=== PATIENT | male | born 1945 | race Caucasian/White ===

== ENCOUNTER 2021-04-27 19:16 | Inpatient (IN) | payer MEDICARE, OTHER ==
[2021-04-27 21:04] LABS: Appearance,Urine Cloudy (Clear); Bacteria,Urine Occasional /hpf; Bilirubin,Urine Negative (Negative); Blood,Urine Trace (Negative); Color,Urine Yellow; Glucose,Urine (UA) Negative (Negative); Hyaline Casts,Urine 3 /lpf (0-2); Ketones,Urine Trace (Negative); Leukocyte Esterase,Urine Large (Negative); Nitrite,Urine Negative (Negative); Protein,Urine Trace (Negative); RBC,Urine 10 /hpf (0-5); Specific Gravity,Urine 1.015 (1.001-1.035); Urobilinogen,Urine <2.0 mg/dL (<2.0); WBC,Urine 175 /hpf (0-5)
[2021-04-27] MEDS ORDERED: ONDANSETRON 4 MG/2 ML VIAL IVP STA (21:31)
[2021-04-27] MEDS ORDERED: HYDROmorphone 1 MG/ML 1 ML SYRINGE IVP STA (21:31)
[2021-04-27] MEDS ORDERED: HYDROmorphone 1 MG/ML 1 ML SYRINGE IVP PRN (22:29)
[2021-04-27] MEDS ORDERED: ONDANSETRON 4 MG/2 ML VIAL IVP PRN (22:29)
[2021-04-27] MEDS ORDERED: NALOXONE 0.4 MG/ML 1 ML VIAL IV PRN (22:29)
--- NOTE | 2021-04-27 22:29 | ED ---
Abdominal Pain HPI - General Chief Complaint: Abdominal Pain Stated Complaint: abd pain, obstruction Time Seen by Provider: 04/27/21 20:38 Source: patient, EMS Mode of arrival: EMS Limitations: physical limitation - History of Present Illness Initial Comments: 76 year-old male patient presents to the emergency department as a transfer from [facility] for GI and urology evaluation. Patient presented to their hospital on 04/13/21 for leg weakness and was admitted with cellulitis. While there he developed significant abdominal pain and distention. He was found to have rectal fecal impaction and had several enemas and was put on stool softeners. He started having bowel movements but symptoms seemed to be worsening. They repeated CT scan x2, he had evidence for dilated small and large bowel with possible ileus. He was also found to have calcification an atrophy of the left kidney. NG tube was inserted without relief. They transferred him here for further evaluation. Patient reports bloating and distention. Generalized abdominal pain. Denies nausea or vomiting. Denies fever or chills. - Related Data Allergies Allergy/AdvReac Type Severity Reaction Status Date / Time enalaprilat [From Vasotec] Allergy Cough Verified 04/27/21 20:46 Review of Systems ROS Statement: Those systems with pertinent positive or pertinent negative responses have been documented in the HPI. ROS Other: All systems not noted in ROS Statement are negative. Past Medical History Past Medical History: Atrial Fibrillation, Heart Failure, Diabetes Mellitus, GERD/Reflux, Hypertension, Vascular Disorder History of Any Multi-Drug Resistant Organisms: None Reported Past Surgical History: Back Surgery, Cholecystectomy, Pacemaker Past Psychological History: No Psychological Hx Reported Smoking Status: Never smoker Past Alcohol Use History: None Reported Past Drug Use History: None Reported General Exam Limitations: physical limitation General appearance: alert, in no apparent distress, other (This is a well- developed, well-nourished adult male patient.) ENT exam: Present: normal exam, normal oropharynx, mucous membranes moist Respiratory exam: Present: normal lung sounds bilaterally. Absent: respiratory distress, wheezes, rales, rhonchi, stridor Cardiovascular Exam: Present: regular rate, normal rhythm, normal heart sounds. Absent: systolic murmur, diastolic murmur, rubs, gallop, clicks GI/Abdominal exam: Present: distended, normal bowel sounds. Absent: tenderness, guarding, rebound, rigid Neurological exam: Present: alert, oriented X3, CN II-XII intact Psychiatric exam: Present: normal affect, normal mood Skin exam: Present: warm, dry, intact, normal color. Absent: rash Course Vital Signs 04/27/21 19:34 Temperature 98.6 F Pulse Rate 108 H Respiratory 18 Rate Blood Pressure 159/94 O2 Sat by Pulse 97 Oximetry Medical Decision Making - Medical Decision Making 76-year-old male patient presented to the emergency department today for GI and urology consult. He is being treated at [facility] for cellulitis and lower extremity weakness when he developed abdominal distention was found to have fecal rectal impaction. Had several enemas and some bowel movements but no relief of the distention. He currently has an NG tube in place. He had 3 CT scans of the abdomen at the previous hospital, the most recent one shows distended colon and small bowel. Evidence for atrophic left kidney with calcification. I did discuss the case with Dr. Mcania is willing to consult for the ileus. Urology will be consulted. Patient does generally have chronic indwelling almanza catheter, this was removed at the previous facility. Patient endorsed inability to urinate, almanza was placed with output of 700ml UA shows infection. We will start antibiotics. Patient is agreeable with this plan. My attending is Dr. Pereira. - Lab Data Lab Results 04/27/21 Range/Units 20:49 Urine Color Yellow Urine Appearance Cloudy (Clear) Urine pH 6.0 (5.0-8.0) Ur Specific [place] 1.015 (1.001-1.035) Urine Protein Trace H (Negative) Urine Glucose (UA) Negative (Negative) Urine Ketones Trace H (Negative) Urine Blood Trace H (Negative) Urine Nitrite Negative (Negative) Urine Bilirubin Negative (Negative) Urine Urobilinogen <2.0 (<2.0) mg/dL Ur Leukocyte Esterase Large H (Negative) Urine RBC 10 H (0-5) /hpf Urine WBC 175 H (0-5) /hpf Urine WBC Clumps Few H (None) /hpf Urine Bacteria Occasional H (None) /hpf Hyaline Casts 3 H (0-2) /lpf Disposition Clinical Impression: Ileus, Atrophy of left kidney, UTI (urinary tract infection) Disposition: ADMITTED IP TO THIS HOSP Condition: Serious Referrals: Bud Barry MD [Primary Care Provider] - 1-2 days Decision to Admit Reason: Admit from EC Decision Date: 04/27/21 Decision Time: 22:28
[2021-04-27] MEDS ORDERED: SODIUM CHLORIDE 0.9% 1,000 ML IV SCH (22:30)
[2021-04-28 04:21] LABS: Basophils # (A) 0.1 k/uL (0-0.2); Basophils % (A) 0 %; Eosinophils # (A) 0.1 k/uL (0-0.7); Eosinophils % (A) 1 %; HCT 46.2 % (39.0-53.0); HGB 14.8 gm/dL (13.0-17.5); Lymphocytes # (A) 1.5 k/uL (1.0-4.8); Lymphocytes % (A) 12 %; MCH 29.9 pg (25.0-35.0); MCHC 32.1 g/dL (31.0-37.0); MCV 93.2 fL (80.0-100.0); Mean Platelet Volume 7.8; Monocytes # (A) 0.7 k/uL (0-1.0); Monocytes % (A) 6 %; Neutrophils # (A) 10.3 k/uL (1.3-7.7); Neutrophils % (A) 80 %; Platelet Count 280 k/uL (150-450); RBC 4.96 m/uL (4.30-5.90); RDW 15.1 % (11.5-15.5); WBC 12.8 k/uL (3.8-10.6)
[2021-04-28 05:43] LABS: Albumin 3.2 g/dL (3.5-5.0); Calcium 9.2 mg/dL (8.4-10.2); Magnesium 2.3 mg/dL (1.6-2.3); Total Protein 7.2 g/dL (6.3-8.2)
[2021-04-28] MEDS ORDERED: IOPAMIDOL CONTRAST (ORAL USE) VIAL PO PRN ×2 (08:16→11:16)
[2021-04-28] MEDS ORDERED: POTASSIUM CHLORIDE ER 20 MEQ TAB.ER PO STA (09:08)
[2021-04-28] MEDS ORDERED: TORSEMIDE 20 MG TAB PO SCH (09:15)
[2021-04-28] MEDS ORDERED: CALCIUM CARB-VIT D 500 MG-5 MCG TAB PO SCH (09:15)
[2021-04-28] MEDS ORDERED: LINAGLIPTIN 5 MG TABLET PO SCH (09:15)
[2021-04-28] MEDS ORDERED: TAMSULOSIN 0.4 MG CAP.ER.24H PO SCH (09:15)
--- NOTE | 2021-04-28 09:54 | P.GSCN ---
History of Present Illness Consult date: 04/28/21 History of present illness: 76 yo male transferred from [facility] because of le swelling weakness, constipation and ileus. On ct scan the patient was found to have an atrophic , calcified kidney. He also is in urine retention with a possible uti.We were asked to the see the patient. The patient was not aware of the atrophic kidney. He states that his had kidney problems but has been in the last few years. He has had what sounds like lower urinary tract infection, prostatitis or epididymitis. He was seen a urologist [place], Dr. Pierre. He was placed on antibiotics out 3 months ago. He has a follow-up appointment with him. He also is on a "prostate medicine". There is no list of this medication on his discharge. He states that since his been having the GI problems he has been having more problems urinating. Prior to that he urinated frequently but he states with a decent stream. He denies urinary tract problems as a younger man or child. He denies previous blood in the urine, urinary tract injuries, urinary tract surgeries, urinary tract infections other than in the last couple years. The computed tomography scan report shows an atrophic left kidney but nothing further than that. He had urine retention on this admission of 700 mL. His urine is inflamed. Review of Systems All systems: negative - Constitutional Denies fever, Denies weight loss - EENT Eyes: denies blurred vision Ears, nose, mouth and throat: Denies dysphagia - Cardiovascular Denies chest pain, Denies shortness of breath - Respiratory Denies cough, Denies 7 - Gastrointestinal Reports as per HPI - Genitourinary Denies dysuria, Denies hematuria - Integumentary Denies rash, Denies unusual bruising - Neurological Denies headaches, Denies syncope - Hematologic/Lymphatic Denies easy bleeding, Denies easy bruising Past Medical History Past Medical History: Atrial Fibrillation, Heart Failure, Diabetes Mellitus, GERD/Reflux, Hypertension, Vascular Disorder History of Any Multi-Drug Resistant Organisms: None Reported, MRSA Year Discovered:: 2009 MDRO Source:: Back Past Surgical History: Back Surgery, Cholecystectomy, Pacemaker Past Anesthesia/Blood Transfusion Reactions: No Reported Reaction Type of Cardiac Device: Permanent Pacemaker Device Placement Date:: 06/2018 Past Psychological History: Depression Smoking Status: Never smoker Past Alcohol Use History: None Reported Past Drug Use History: None Reported - Past Family History Father Family Medical History: Myocardial Infarction ([place]) Additional Family Medical History / Comment(s): Father passed at the age of 58 from heart attack Mother Family Medical History: Memory Impairment Additional Family Medical History / Comment(s): Mother passed from [place] at the age of 86 Brother(s) Family Medical History: Congestive Heart Failure (CHF) Sister(s) Family Medical History: Congestive Heart Failure (CHF) Medications and Allergies Home Medications Medication Instructions Recorded Confirmed Type Alogliptin Benzoate [Alogliptin] 12.5 mg PO DAILY 04/27/21 04/27/21 History Apixaban [Eliquis] 5 mg PO BID 04/27/21 04/27/21 History Atorvastatin Calcium [Lipitor] 20 mg PO HS 04/27/21 04/27/21 History Calcium Carbonate/Vitamin D3 1 tab PO BID 04/27/21 04/27/21 History [Calcium 500 mg-Vit D3 5 mcg (200 Unit)] Cholecalciferol [Vitamin D3 (25 25 mcg PO DAILY 04/27/21 04/27/21 History Mcg = 1000 Iu)] Diltiazem HCl [Diltiazem HCl 24Hr 120 mg PO DAILY 04/27/21 04/27/21 History ER] Ergocalciferol (Vitamin D2) 1,250 mcg PO SA 04/27/21 04/27/21 History [Drisdol (50,000 Iu)] HYDROcodone/APAP 10-325MG [[place] 1 tab PO QID PRN 04/27/21 04/27/21 History 10-325] Lactobacillus Acidophilus 1 tab PO BID 04/27/21 04/27/21 History [Acidophilus] Losartan Potassium [Cozaar] 12.5 mg PO DAILY 04/27/21 04/27/21 History Magnesium 420mg 420 mg PO TID 04/27/21 04/27/21 History Metoprolol Tartrate [Lopressor] 100 mg PO BID 04/27/21 04/27/21 History Multivitamins, Thera [Multivitamin 1 tab PO DAILY 04/27/21 04/27/21 History (formulary)] Omeprazole 20 mg PO BID 04/27/21 04/27/21 History Pyridoxine [Vitamin B-6] 50 mg PO DAILY 04/27/21 04/27/21 History Tamsulosin HCl [Flomax] 0.4 mg PO DAILY 04/27/21 04/27/21 History Torsemide [Demadex] 100 mg PO DAILY 04/27/21 04/27/21 History polyethylene glycoL 3350 [Miralax] 17 gm PO DAILY 04/27/21 04/27/21 History Allergies Allergy/AdvReac Type Severity Reaction Status Date / Time enalaprilat [From Vasotec] Allergy Cough Verified 04/27/21 22:47 Surgical - Exam Vital Signs Temp Pulse Resp BP Pulse Ox 98.6 F 108 H 18 159/94 97 04/27/21 19:34 04/27/21 19:34 04/27/21 19:34 04/27/21 19:34 04/27/21 19:34 - General well developed, well nourished, obese - Eyes PERRL - ENT no hearing loss - Neck trachea midline - Respiratory normal expansion, normal respiratory effort - Cardiovascular Rhythm: regular - Abdomen NG tube, distended, soft. - Genitourinary Indwelling catheter normal penis with no external lesions, testicles present - Neurologic normal sensation - Musculoskeletal normal posture - Psychiatric oriented to time, oriented to place, speech is normal, memory intact Results - Labs 04/28/21 03:45 04/28/21 03:45 Abnormal Lab Results - Last 24 Hours (Table) 04/27/21 04/28/21 04/28/21 Range/Units 20:49 03:45 03:45 WBC 12.8 H (3.8-10.6) k/uL Neutrophils # 10.3 H (1.3-7.7) k/uL Potassium 3.0 L (3.5-5.1) mmol/L Chloride 114 H (98-107) mmol/L BUN 32 H (9-20) mg/dL Creatinine 1.46 H (0.66-1.25) mg/dL Glucose 141 H (74-99) mg/dL Albumin 3.2 L (3.5-5.0) g/dL Urine Protein Trace H (Negative) Urine Ketones Trace H (Negative) Urine Blood Trace H (Negative) Ur Leukocyte Esterase Large H (Negative) Urine RBC 10 H (0-5) /hpf Urine WBC 175 H (0-5) /hpf Urine WBC Clumps Few H (None) /hpf Urine Bacteria Occasional H (None) /hpf Hyaline Casts 3 H (0-2) /lpf Microbiology - Last 24 Hours (Table) 04/27/21 20:49 Urine Culture - Preliminary Urine,Clean Catch Diabetes panel 04/28/21 Range/Units 03:45 Sodium 145 (137-145) mmol/L Potassium 3.0 L (3.5-5.1) mmol/L Chloride 114 H (98-107) mmol/L Carbon Dioxide 24 (22-30) mmol/L BUN 32 H (9-20) mg/dL Creatinine 1.46 H (0.66-1.25) mg/dL Glucose 141 H (74-99) mg/dL Calcium 9.2 (8.4-10.2) mg/dL AST 38 (17-59) U/L ALT 49 (4-49) U/L Alkaline Phosphatase 99 (38-126) U/L Total Protein 7.2 (6.3-8.2) g/dL Albumin 3.2 L (3.5-5.0) g/dL Calcium panel 04/28/21 Range/Units 03:45 Calcium 9.2 (8.4-10.2) mg/dL Albumin 3.2 L (3.5-5.0) g/dL Pituitary panel 04/28/21 Range/Units 03:45 Sodium 145 (137-145) mmol/L Potassium 3.0 L (3.5-5.1) mmol/L Chloride 114 H (98-107) mmol/L Carbon Dioxide 24 (22-30) mmol/L BUN 32 H (9-20) mg/dL Creatinine 1.46 H (0.66-1.25) mg/dL Glucose 141 H (74-99) mg/dL Calcium 9.2 (8.4-10.2) mg/dL Adrenal panel 04/28/21 Range/Units 03:45 Sodium 145 (137-145) mmol/L Potassium 3.0 L (3.5-5.1) mmol/L Chloride 114 H (98-107) mmol/L Carbon Dioxide 24 (22-30) mmol/L BUN 32 H (9-20) mg/dL Creatinine 1.46 H (0.66-1.25) mg/dL Glucose 141 H (74-99) mg/dL Calcium 9.2 (8.4-10.2) mg/dL Total Bilirubin 1.0 (0.2-1.3) mg/dL AST 38 (17-59) U/L ALT 49 (4-49) U/L Alkaline Phosphatase 99 (38-126) U/L Total Protein 7.2 (6.3-8.2) g/dL Albumin 3.2 L (3.5-5.0) g/dL Assessment and Plan Assessment: Impression: atrophic left kidney indeterminante etiology. urine retention probably secondary to fecal impaction aggravated by bph. History of bph and secondary uti Plan: There is nothing to do with the atrophic kidney. c/w almanza til ambulatory and the bowel is functioning. add flomax to the regimen. I will follow.
[2021-04-28] MEDS ORDERED: POTASSIUM BICARBONATE/CIT AC 20 MEQ TABLET.EFF PO ONE (10:30)
[2021-04-28] MEDS: LOSARTAN 25 MG TAB PO SCH (10:37)
[2021-04-28] MEDS: PANTOPRAZOLE 40 MG TABLET PO SCH (10:37)
[2021-04-28] MEDS: MAGNESIUM OXIDE 400 MG TAB PO SCH ×3 (10:39→21:48)
[2021-04-28] MEDS: METOPROLOL TARTRATE 50 MG TAB PO SCH ×2 (10:39→19:53)
[2021-04-28] MEDS: PYRIDOXINE 50 MG TAB PO SCH (10:41)
[2021-04-28] MEDS: DILTIAZEM CD 120 MG CAP.ER.24H PO SCH (10:44)
--- NOTE | 2021-04-28 14:28 | CT ---
EXAMINATION TYPE: CT abdomen pelvis wo con DATE OF EXAM: 04/28/2021 HISTORY: Ileus, UTI, Weakness, Abdominal pain, distention CT DLP: 1683.4 mGycm. Automated Exposure Control for Dose Reduction was Utilized. TECHNIQUE: CT scan of the abdomen and pelvis is performed without oral or IV contrast. COMPARISON: NONE FINDINGS: Within the limitations of a non-contrast study, the following observations are made. LUNG BASES: Mild to moderate linear atelectasis and/or scarring. Small degree of subareolar gynecomas tia bilaterally is present. Heart size is normal with right ventricular pacemaker wire partially imag ed. Coronary artery calcification is present. LIVER/GB: Cholecystectomy clips are seen. Liver is heterogeneously hypodense suggesting diffuse fatty infiltration. No biliary dilatation noted. PANCREAS: Mild to moderate generalized femoral placed atrophy. SPLEEN: No significant abnormality is seen. ADRENALS: No significant abnormality is seen. KIDNEYS: Marked cortical thinning and diminished size to the left kidney with central 2 to 3 mm pelvi c calculus on axial image 33. There are multiple small calculi along the course of the left ureter wh ich is nondilated. There is exophytic heterogeneous hypodense mass with Hounsfield units averaging 65 measuring 4.8 x 4.4 cm lateral to left kidney appears to be connected by thin soft tissue coronal im age 89. Cannot exclude exophytic solid mass or neoplasm at this level. There is a partially exophytic 3.5 cm low dense lesion upper pole right kidney with Hounsfield units averaging 23 favoring benign t hin-walled cyst or cystic lesion. Correlate clinically and with old outside imaging is advised. Chanel catheter decompresses bladder. No right-sided hydronephrosis or renal calculi. BOWEL: Oral gastric tube projects below diaphragm in the stomach which is decompressed. There is deco mpression of the duodenal sweep. Proximal jejunal loops show no suspicious dilatation. Small bowel lo ops scattered throughout the abdomen and pelvis shows some contrast opacification in the lower abdome n and pelvis and are slightly more prominent. No greater than 3.0 cm dilatation is seen. There is non distended terminal ileum. The right colon shows no suspicious dilatation. Normal-appearing appendix e xtends medially from the cecum. There is gas prominent transverse colon in the anterior abdomen with bulging of the anterior abdominal wall but no hernia defect this transitions into nondistended transv erse colon near splenic flexure which extends into left colon that shows mild prominence and air flui d level. Sigmoid colon shows gas prominence along the proximal aspect in the anterior pelvis with abr upt cut off axial image 74, mild wall thickening at this level is present. Distal to this there is an air-fluid level in the rectum without suspicious wall thickening. GENITAL ORGANS: Prostate gland normal in size with some small central calcifications. LYMPH NODES: No greater than 1cm abdominal or pelvic lymph nodes are appreciated. OSSEOUS STRUCTURES: Osseous structures are demineralized. There is postsurgical change to the posteri or aspect of the lumbar spine. Posterior scar tissue and decompression changes noted. There is loss o f normal lumbar lordosis. Transitional-type vertebra at lumbosacral junction is seen. Grade 2 anterol isthesis is present sagittal image 90 to lower lumbar spine at site of prior surgery. Multilevel spur ring in the spine. Moderate axial joint space loss and spurring both hips left greater than right. Un derlying scoliosis. Bridging osteophytes in the thoracolumbar spine anteriorly and laterally are pres ent. OTHER: No significant additional abnormality is seen. IMPRESSION: Overall nonspecific favor nonobstructive bowel gas pattern. Abrupt transition change mid sigmoid colon without obvious mass, correlate with colonoscopy advised.
--- NOTE | 2021-04-28 16:25 | P.GSCN ---
History of Present Illness Consult date: 04/28/21 History of present illness: CHIEF COMPLAINT: Abdominal pain HISTORY OF PRESENT ILLNESS: This is a 76-year-old male who is a transfer from [facility]. He presented to the hospital on 04/13/2021 for leg weakness and cellulitis. While he was there he developed abdominal pain and distention. He had rectal fecal impaction and required several enemas and stool softeners to be given. He reports that it had been about 7 days without a bowel movement. After the enemas he did have bowel movements. But continued to have worsening symptoms. He had 2 CT scans without contrast completed at the hospital that had shown dilated small and large bowel with possible ileus. Also found have a calcification atrophy of the left kidney. Patient did have NG tube placed there without any relief. And transferred to [facility] for further evaluation. Patient is now having gas and did have a bowel movement this afternoon. Reports that he is starting to feel better. He does have a known surgical history of cholecystectomy does have a history of atrial fibrillation and anticoagulated with Eliquis and history of pacemaker. PAST MEDICAL HISTORY: See list. PAST SURGICAL HISTORY: See list. MEDICATIONS: See list. ALLERGIES: See list. SOCIAL HISTORY: No illicit drug use. REVIEW OF SYSTEMS: CONSTITUTIONAL: Denies fever or chills. HEENT: Denies blurred vision, vision changes, or eye pain. Denies hemoptysis CARDIOVASCULAR: Denies chest pain or pressure. RESPIRATORY: No shortness of breath. GASTROINTESTINAL: See HPI for pertinent findings HEMATOLOGIC: Denies bleeding disorders. GENITOURINARY: Denies any blood in urine or increased urinary frequency. SKIN: Denies pruitis. Denies rash. PHYSICAL EXAM: VITAL SIGNS: Reviewed GENERAL: Well-developed in no acute distress. HEENT: No sclera icterus. Extraocular movements grossly intact. Moist buccal mucosa. Head is atraumatic, normocephalic. No nasal drainage. ABDOMEN: Distended with upper abdominal tenderness. Has NG tube in place with minimal output NEUROLOGIC: Alert and oriented. Cranial nerves II through XII grossly intact. LABORATORY DATA: WBC 12.8 hgb 14.8 sodium 145 potassium 3.0 BUN 32 creatinine 1.46 IMAGING: ASSESSMENT: 1. Abdominal pain and abdominal distention with evidence of ileus 2. Ileus likely secondary to hypokalemia 3. Hypokalemia PLAN: -Computed tomography scan abdomen and pelvis with oral contrast ordered -Continue supportive care -Continue IV fluids -Potassium being corrected -Further recommendations forthcoming per computed tomography scan results Thank you for this consultation Physician Mule Operator note has been reviewed by physician. Signing provider agrees with the documented findings, assessment, and plan of care. Past Medical History Past Medical History: Atrial Fibrillation, Heart Failure, Diabetes Mellitus, GERD/Reflux, Hypertension, Vascular Disorder History of Any Multi-Drug Resistant Organisms: None Reported, MRSA Year Discovered:: 2009 MDRO Source:: Back Past Surgical History: Back Surgery, Cholecystectomy, Pacemaker Past Anesthesia/Blood Transfusion Reactions: No Reported Reaction Type of Cardiac Device: Permanent Pacemaker Device Placement Date:: 06/2018 Past Psychological History: Depression Smoking Status: Never smoker Past Alcohol Use History: None Reported Past Drug Use History: None Reported - Past Family History Father Family Medical History: Myocardial Infarction ([place]) Additional Family Medical History / Comment(s): Father passed at the age of 58 from heart attack Mother Family Medical History: Memory Impairment Additional Family Medical History / Comment(s): Mother passed from [place] at the age of 86 Brother(s) Family Medical History: Congestive Heart Failure (CHF) Sister(s) Family Medical History: Congestive Heart Failure (CHF) Medications and Allergies Home Medications Medication Instructions Recorded Confirmed Type Alogliptin Benzoate [Alogliptin] 12.5 mg PO DAILY 04/27/21 04/27/21 History Apixaban [Eliquis] 5 mg PO BID 04/27/21 04/27/21 History Atorvastatin Calcium [Lipitor] 20 mg PO HS 04/27/21 04/27/21 History Calcium Carbonate/Vitamin D3 1 tab PO BID 04/27/21 04/27/21 History [Calcium 500 mg-Vit D3 5 mcg (200 Unit)] Cholecalciferol [Vitamin D3 (25 25 mcg PO DAILY 04/27/21 04/27/21 History Mcg = 1000 Iu)] Diltiazem HCl [Diltiazem HCl 24Hr 120 mg PO DAILY 04/27/21 04/27/21 History ER] Ergocalciferol (Vitamin D2) 1,250 mcg PO SA 04/27/21 04/27/21 History [Drisdol (50,000 Iu)] HYDROcodone/APAP 10-325MG [[place] 1 tab PO QID PRN 04/27/21 04/27/21 History 10-325] Lactobacillus Acidophilus 1 tab PO BID 04/27/21 04/27/21 History [Acidophilus] Losartan Potassium [Cozaar] 12.5 mg PO DAILY 04/27/21 04/27/21 History Magnesium 420mg 420 mg PO TID 04/27/21 04/27/21 History Metoprolol Tartrate [Lopressor] 100 mg PO BID 04/27/21 04/27/21 History Multivitamins, Thera [Multivitamin 1 tab PO DAILY 04/27/21 04/27/21 History (formulary)] Omeprazole 20 mg PO BID 04/27/21 04/27/21 History Pyridoxine [Vitamin B-6] 50 mg PO DAILY 04/27/21 04/27/21 History Tamsulosin HCl [Flomax] 0.4 mg PO DAILY 04/27/21 04/27/21 History Torsemide [Demadex] 100 mg PO DAILY 04/27/21 04/27/21 History polyethylene glycoL 3350 [Miralax] 17 gm PO DAILY 04/27/21 04/27/21 History Allergies Allergy/AdvReac Type Severity Reaction Status Date / Time enalaprilat [From Vasotec] Allergy Cough Verified 04/27/21 22:47 Surgical - Exam Vital Signs Temp Pulse Resp BP Pulse Ox 98.6 F 108 H 18 159/94 97 04/27/21 19:34 04/27/21 19:34 04/27/21 19:34 04/27/21 19:34 04/27/21 19:34 Results - Labs 04/28/21 03:45 04/28/21 03:45 Abnormal Lab Results - Last 24 Hours (Table) 04/27/21 04/28/21 04/28/21 Range/Units 20:49 03:45 03:45 WBC 12.8 H (3.8-10.6) k/uL Neutrophils # 10.3 H (1.3-7.7) k/uL Potassium 3.0 L (3.5-5.1) mmol/L Chloride 114 H (98-107) mmol/L BUN 32 H (9-20) mg/dL Creatinine 1.46 H (0.66-1.25) mg/dL Glucose 141 H (74-99) mg/dL Albumin 3.2 L (3.5-5.0) g/dL Urine Protein Trace H (Negative) Urine Ketones Trace H (Negative) Urine Blood Trace H (Negative) Ur Leukocyte Esterase Large H (Negative) Urine RBC 10 H (0-5) /hpf Urine WBC 175 H (0-5) /hpf Urine WBC Clumps Few H (None) /hpf Urine Bacteria Occasional H (None) /hpf Hyaline Casts 3 H (0-2) /lpf Microbiology - Last 24 Hours (Table) 04/27/21 20:49 Urine Culture - Preliminary Urine,Clean Catch Diabetes panel 04/28/21 Range/Units 03:45 Sodium 145 (137-145) mmol/L Potassium 3.0 L (3.5-5.1) mmol/L Chloride 114 H (98-107) mmol/L Carbon Dioxide 24 (22-30) mmol/L BUN 32 H (9-20) mg/dL Creatinine 1.46 H (0.66-1.25) mg/dL Glucose 141 H (74-99) mg/dL Calcium 9.2 (8.4-10.2) mg/dL AST 38 (17-59) U/L ALT 49 (4-49) U/L Alkaline Phosphatase 99 (38-126) U/L Total Protein 7.2 (6.3-8.2) g/dL Albumin 3.2 L (3.5-5.0) g/dL Calcium panel 04/28/21 Range/Units 03:45 Calcium 9.2 (8.4-10.2) mg/dL Albumin 3.2 L (3.5-5.0) g/dL Pituitary panel 04/28/21 Range/Units 03:45 Sodium 145 (137-145) mmol/L Potassium 3.0 L (3.5-5.1) mmol/L Chloride 114 H (98-107) mmol/L Carbon Dioxide 24 (22-30) mmol/L BUN 32 H (9-20) mg/dL Creatinine 1.46 H (0.66-1.25) mg/dL Glucose 141 H (74-99) mg/dL Calcium 9.2 (8.4-10.2) mg/dL Adrenal panel 04/28/21 Range/Units 03:45 Sodium 145 (137-145) mmol/L Potassium 3.0 L (3.5-5.1) mmol/L Chloride 114 H (98-107) mmol/L Carbon Dioxide 24 (22-30) mmol/L BUN 32 H (9-20) mg/dL Creatinine 1.46 H (0.66-1.25) mg/dL Glucose 141 H (74-99) mg/dL Calcium 9.2 (8.4-10.2) mg/dL Total Bilirubin 1.0 (0.2-1.3) mg/dL AST 38 (17-59) U/L ALT 49 (4-49) U/L Alkaline Phosphatase 99 (38-126) U/L Total Protein 7.2 (6.3-8.2) g/dL Albumin 3.2 L (3.5-5.0) g/dL
--- NOTE | 2021-04-28 16:50 | P.HPIM ---
History of Present Illness H&P Date: 04/28/21 Chief Complaint: Abdominal distention This is a 76-year-old patient, who follows with Dr. Barry. Chronic stable medical conditions include atrial fibrillation, CHF, diabetes, GERD, hypertension, pacemaker, depression. Patient normally is a full assist. Patient's left knee was giving trouble and gaveway patient therefore presented to [facility]. Patient did not have any BMs for 7 days. Was given strong laxatives. Patient described as having tons of bowel movements. Subsequently patient's abdomen: Distended. NG tube was placed 2 days ago. No fever no chills. Patient had been eating prior to that. He was sent down here for further surgical evaluation. Patient has small BM yesterday. Has been passing flatus. . Abdomen remains distended. Review of systems: GEN.: Tired EYES: None HEENT: NG tube for 2 days NECK: None RESPIRATORY: None CARDIOVASCULAR: None GASTROINTESTINAL: As above GENITOURINARY: None MUSCULOSKELETAL: Joint pains LYMPHATICS: None HEMATOLOGICAL: None PSYCHIATRY: None NEUROLOGICAL: None Past medical history to include: Atrial fibrillation, CHF, diabetes, GERD, hypertension, pacemaker, depression Social history: Lives at [facility]. Has full-time support. Patient is a full assist to a wheelchair. Can pivot. With help Family history: Father of a heart attack age 58 Physical examination: VITAL SIGNS: 97.6, 88, 20, 149/88, 98% room air GENERAL: BMI 38.8, declining but awake, tired. EYES: Pupils equal. Conjunctiva normal. HEENT: External appearance of nose and ears normal, oral cavity dry mucous m embranes. NECK: JVD unable to assess; masses not palpable. HEART: Heart sounds distant; no edema. LUNGS: Respiratory rate normal; distant breath sounds. ABDOMEN: Soft, distended, hyperactive bowel sounds nontender, liver spleen not palpable, no masses palpable. PSYCH: Alert and oriented x3; mood and affect normal. MUSCULOSKELETAL:No Clubbing/cyanosis;muscles-grossly intact. Evidence of OA NEUROLOGICAL: Cranial nerves grossly intact; no facial asymmetry, power and sensation grossly intact. LYMPHATICS: No lymph nodes palpable in the axilla and neck INVESTIGATIONS, reviewed in the clinical context: White count 12.8 hemoglobin 14.8 platelets 280 sodium 145 potassium 3 BUN 32 cre atinine 1.46 UA positive for leukoesterase, WBC, RBC Coronavirus [PCR]: Not detected Computed tomography scan of the abdomen pelvis: Overall nonspecific pattern favoring nonobstructive bowel gas pattern. Abrupt transition change mid sigmoid colon without obvious mass. Chronic changes to the left kidney. Small calculi along the course of left ureter. Nondilated. 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 Assessment and plan: -Suspect ileus with patient had an NG tube for last 2 days. Cannot rule out a mixed sigmoid obstruction. Currently nothing by mouth. Follow with surgery -Obesity BMI 38.8 -Possible Left kidney mass 6.8 x 4.4 cm. Have patient follow-up with urology -Primary osteoarthritis multiple joints bilateral Pain medicine when necessary -Persistent atrial fibrillation Lopressor 100 mg twice a day. Eliquis. Telemetry. Cardizem ER 100 mg a day -BPH Flomax 0.4 mg a day -Essential hypertension Cozaar, Cardizem extended release, Lopressor -GERD Omeprazole 20 mg twice a day Follow with surgery. By mouth medications. Otherwise nothing by mouth. NG tube. IV fluids. 2-D echocardiogram. Telemetry. Discussed with the patient. Given the complexity and severity of patient's condition expect the patient to be in the hospital at least for 2 overnights Past Medical History Past Medical History: Atrial Fibrillation, Heart Failure, Diabetes Mellitus, GERD/Reflux, Hypertension, Vascular Disorder History of Any Multi-Drug Resistant Organisms: None Reported, MRSA Date of last positivie culture/infection: 2009 MDRO Source:: Back Past Surgical History: Back Surgery, Cholecystectomy, Pacemaker Past Anesthesia/Blood Transfusion Reactions: No Reported Reaction Type of Cardiac Device: Permanent Pacemaker Device Placement Date:: 06/2018 Past Psychological History: Depression Smoking Status: Never smoker Past Alcohol Use History: None Reported Past Drug Use History: None Reported - Past Family History Father Family Medical History: Myocardial Infarction ([place]) Additional Family Medical History / Comment(s): Father passed at the age of 58 from heart attack Mother Family Medical History: Memory Impairment Additional Family Medical History / Comment(s): Mother passed from [place] at the age of 86 Brother(s) Family Medical History: Congestive Heart Failure (CHF) Sister(s) Family Medical History: Congestive Heart Failure (CHF) Medications and Allergies Home Medications Medication Instructions Recorded Confirmed Type Alogliptin Benzoate [Alogliptin] 12.5 mg PO DAILY 04/27/21 04/27/21 History Apixaban [Eliquis] 5 mg PO BID 04/27/21 04/27/21 History Atorvastatin Calcium [Lipitor] 20 mg PO HS 04/27/21 04/27/21 History Calcium Carbonate/Vitamin D3 1 tab PO BID 04/27/21 04/27/21 History [Calcium 500 mg-Vit D3 5 mcg (200 Unit)] Cholecalciferol [Vitamin D3 (25 25 mcg PO DAILY 04/27/21 04/27/21 History Mcg = 1000 Iu)] Diltiazem HCl [Diltiazem HCl 24Hr 120 mg PO DAILY 04/27/21 04/27/21 History ER] Ergocalciferol (Vitamin D2) 1,250 mcg PO SA 04/27/21 04/27/21 History [Drisdol (50,000 Iu)] HYDROcodone/APAP 10-325MG [[place] 1 tab PO QID PRN 04/27/21 04/27/21 History 10-325] Lactobacillus Acidophilus 1 tab PO BID 04/27/21 04/27/21 History [Acidophilus] Losartan Potassium [Cozaar] 12.5 mg PO DAILY 04/27/21 04/27/21 History Magnesium 420mg 420 mg PO TID 04/27/21 04/27/21 History Metoprolol Tartrate [Lopressor] 100 mg PO BID 04/27/21 04/27/21 History Multivitamins, Thera [Multivitamin 1 tab PO DAILY 04/27/21 04/27/21 History (formulary)] Omeprazole 20 mg PO BID 04/27/21 04/27/21 History Pyridoxine [Vitamin B-6] 50 mg PO DAILY 04/27/21 04/27/21 History Tamsulosin HCl [Flomax] 0.4 mg PO DAILY 04/27/21 04/27/21 History Torsemide [Demadex] 100 mg PO DAILY 04/27/21 04/27/21 History polyethylene glycoL 3350 [Miralax] 17 gm PO DAILY 04/27/21 04/27/21 History Allergies Allergy/AdvReac Type Severity Reaction Status Date / Time enalaprilat [From Vasotec] Allergy Cough Verified 04/27/21 22:47 Physical Exam Vitals: Vital Signs Temp Pulse Pulse Resp BP BP Pulse Ox 04/28/21 09:58 94 137/83 04/28/21 09:06 88 04/28/21 07:13 97.6 F 88 20 149/88 98 04/28/21 01:35 98.3 F 76 19 162/77 92 L 04/28/21 01:21 76 19 04/28/21 00:37 110 H 18 164/97 95 04/27/21 23:09 100 16 159/65 97 04/27/21 19:34 98.6 F 108 H 18 159/94 97 Intake and Output 04/27/21 04/28/21 04/28/21 22:59 06:59 14:59 Output Total 700 350 Balance -700 -350 Output: Urine 700 350 Uretheral (Chanel) 700 Other: Voiding Method Indwelling Catheter Indwelling Catheter Weight 136.985 kg 136.985 kg Results CBC & Chem 7: 04/28/21 03:45 04/28/21 03:45 Labs: Abnormal Lab Results - Last 24 Hours (Table) 04/27/21 04/28/21 04/28/21 Range/Units 20:49 03:45 03:45 WBC 12.8 H (3.8-10.6) k/uL Neutrophils # 10.3 H (1.3-7.7) k/uL Potassium 3.0 L (3.5-5.1) mmol/L Chloride 114 H (98-107) mmol/L BUN 32 H (9-20) mg/dL Creatinine 1.46 H (0.66-1.25) mg/dL Glucose 141 H (74-99) mg/dL Albumin 3.2 L (3.5-5.0) g/dL Urine Protein Trace H (Negative) Urine Ketones Trace H (Negative) Urine Blood Trace H (Negative) Ur Leukocyte Esterase Large H (Negative) Urine RBC 10 H (0-5) /hpf Urine WBC 175 H (0-5) /hpf Urine WBC Clumps Few H (None) /hpf Urine Bacteria Occasional H (None) /hpf Hyaline Casts 3 H (0-2) /lpf Microbiology - Last 24 Hours (Table) 04/27/21 20:49 Urine Culture - Preliminary Urine,Clean Catch Thrombosis Risk Factor Assmnt - Choose All That Apply Any of the Below Risk Factors Present?: Yes Each Factor Represents 1 point: Medical pt on bed rest, Obesity (BMI >25) Each Risk Factor Represents 3 Points: Age 75 years or older Thrombosis Risk Factor Assessment Total Risk Factor Score: 5 Thrombosis Risk Factor Assessment Level: High Risk
[2021-04-28 16:52] LABS: Glucose,Whole Blood 137 mg/dL (75-99)
[2021-04-28] MEDS: LACTATED RINGERS 1,000 ML IV SCH ×2 (17:55→19:54)
[2021-04-28] MEDS: TAMSULOSIN 0.4 MG CAP.ER.24H PO SCH (17:55)
[2021-04-28] MEDS: HYDROcodone/APAP 10-325MG 1 EACH TAB PO PRN (19:51)
[2021-04-28] MEDS: ATORVASTATIN 20 MG TAB PO SCH (19:53)
[2021-04-28] MEDS: APIXABAN 5 MG TAB PO SCH (19:53)
[2021-04-28 20:21] LABS: Glucose,Whole Blood 222 mg/dL (75-99)
[2021-04-28] MEDS ORDERED: LACTOBACILLUS ACIDOPH & BULGAR 1 EACH PACKET PO SCH (21:00)
[2021-04-29] MEDS: LACTATED RINGERS 1,000 ML IV SCH ×3 (05:00→20:40)
[2021-04-29] MEDS: HYDROcodone/APAP 10-325MG 1 EACH TAB PO PRN ×2 (05:48→13:40)
[2021-04-29 07:06] LABS: Glucose,Whole Blood 160 mg/dL (75-99)
[2021-04-29] MEDS: PANTOPRAZOLE 40 MG TABLET PO SCH (08:07)
[2021-04-29] MEDS ORDERED: CHOLECALCIFEROL 25 MCG (1000 IU) TABLET PO SCH (09:00)
[2021-04-29] MEDS ORDERED: polyethylene glycoL 3350 17 GM POWD.PACK PO SCH (09:00)
[2021-04-29 09:21] LABS: Basophils # (A) 0.1 k/uL (0-0.2); Basophils % (A) 0 %; Eosinophils # (A) 0.1 k/uL (0-0.7); Eosinophils % (A) 1 %; HCT 42.6 % (39.0-53.0); HGB 13.6 gm/dL (13.0-17.5); Hypochromasia Slight; Lymphocytes # (A) 1.5 k/uL (1.0-4.8); Lymphocytes % (A) 11 %; MCH 30.5 pg (25.0-35.0); MCHC 31.9 g/dL (31.0-37.0); MCV 95.7 fL (80.0-100.0); Mean Platelet Volume 7.8; Monocytes # (A) 0.7 k/uL (0-1.0); Monocytes % (A) 5 %; Neutrophils # (A) 10.8 k/uL (1.3-7.7); Neutrophils % (A) 81 %; Platelet Count 259 k/uL (150-450); RBC 4.45 m/uL (4.30-5.90); RDW 15.1 % (11.5-15.5); WBC 13.4 k/uL (3.8-10.6)
[2021-04-29 09:32] LABS: African American GFR (CKD) 45 (>60 ml/min/1.73 sqM); Anion Gap 8 mmol/L; Blood Urea Nitrogen 32 mg/dL (9-20); Calcium 8.7 mg/dL (8.4-10.2); Carbon Dioxide 22 mmol/L (22-30); Chloride 110 mmol/L (98-107); Glucose 243 mg/dL (74-99); Non-African American GFR(CKD) 39 (>60 ml/min/1.73 sqM); Sodium 140 mmol/L (137-145)
[2021-04-29] MEDS: LOSARTAN 25 MG TAB PO SCH (10:08)
[2021-04-29] MEDS: APIXABAN 5 MG TAB PO SCH ×2 (10:10→20:41)
[2021-04-29] MEDS: MULTIVITAMINS, THERA 1 EACH TAB PO SCH (10:10)
[2021-04-29] MEDS: DILTIAZEM CD 120 MG CAP.ER.24H PO SCH (10:11)
[2021-04-29] MEDS: METOPROLOL TARTRATE 50 MG TAB PO SCH ×2 (10:11→20:41)
[2021-04-29] MEDS: MAGNESIUM OXIDE 400 MG TAB PO SCH ×3 (10:11→20:41)
[2021-04-29] MEDS: PYRIDOXINE 50 MG TAB PO SCH (10:11)
[2021-04-29 11:23] LABS: Glucose,Whole Blood 208 mg/dL (75-99)
--- NOTE | 2021-04-29 11:45 | P.CRDCN ---
History of Present Illness History of present illness: HISTORY OF PRESENTING ILLNESS This is a pleasant 76-year-old male past medical history significant for Persistent atrial fibrillation, type 2 diabetes, hypertension, dyslipidemia. 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 We have been asked to see in consultation for chronic atrial fibrillation and PVCs. Patient presents to the emergency department on 04/27/21 with complaints of abdominal pain and distention. He initially presented to [facility] and was transferred for GI neurology evaluation. CT scans at outside facility concerning for ileus. Surgery is following. He denies any chest pain, palpitations, lightheadedness, dizziness, syncope or near syncope. His home medications include Eliquis 5 mg twice a day, atorvastatin 20 mg nightly, Cardizem 120 mg daily, losartan 12.5 mg daily DIAGNOSTICS Telemetry tracings indicate atrial fibrillation with controlled ventricular ra [place] with PVCs. Laboratory reviewed, WBC 13.4, hemoglobin 13.6, platelets 259, sodium 140, potassium 3.0, BUN 32, serum creatinine 1.6, troponin negative REVIEW OF SYSTEMS At the time of my exam: CONSTITUTIONAL: Denies fever or chills. CARDIOVASCULAR: Denies chest pain, shortness of breath, orthopnea, PND or palpitations. RESPIRATORY: Denies cough. GASTROINTESTINAL: Denies abdominal pain, diarrhea, constipation, nausea or vomiting. MUSCULOSKELETAL: Denies myalgias. NEUROLOGIC: Denies numbness, tingling, headacbe or weakness. ENDOCRINE: Denies fatigue, weight change, polydipsia or polyurina. GENITOURINARY: Denies burning, hematuria or urgency with micturation. HEMATOLOGIC: Denies history of anemia or bleeding. PHYSICAL EXAMINATION Blood pressure 109/68, heart rate 91, afebrile, oxygen saturations 95% on room air CONSTITUTIONAL: No apparent distress. HEENT: Head is normocephalic. Pupils are equal, round. Sclerae anicteric. Mucous membranes of the mouth are moist. No JVD. No carotid bruit. CHEST EXAMINATION: Lungs are clear to auscultation. No chest wall tenderness is noted on palpation or with deep breathing. HEART EXAMINATION: Regular rate and rhythm. S1, S2 heard. No murmurs, gallops or rub. ABDOMEN: Soft, nontender. Positive bowel sounds. EXTREMITIES: 2+ peripheral pulses, no lower extremity edema and no calf tenderness. NEUROLOGIC EXAMINATION: Patient is awake, alert and oriented x3. ASSESSMENT Persistent atrial fibrillation on Eliquis, rates are controlled Abdominal pain Occasional PVCs Type 2 Diabetes Hypertension Dyslipidemia PLAN From a cardiology perspective, patient is stable on current medication regimen. Continue Eliquis, cardizem, statin and losartan. Recommend no changes at this time.We will sign off at this time. Please reach out with any further questions or concerns Nurse Practitioner note has been reviewed, I agree with a documented findings and plan of care. Patient was seen and examined. Past Medical History Past Medical History: Atrial Fibrillation, Heart Failure, Diabetes Mellitus, GERD/Reflux, Hypertension, Vascular Disorder History of Any Multi-Drug Resistant Organisms: None Reported, MRSA Date of last positivie culture/infection: 2009 MDRO Source:: Back Past Surgical History: Back Surgery, Cholecystectomy, Pacemaker Past Anesthesia/Blood Transfusion Reactions: No Reported Reaction Type of Cardiac Device: Permanent Pacemaker Device Placement Date:: 06/2018 Past Psychological History: Depression Smoking Status: Never smoker Past Alcohol Use History: None Reported Past Drug Use History: None Reported - Past Family History Father Family Medical History: Myocardial Infarction ([place]) Additional Family Medical History / Comment(s): Father passed at the age of 58 from heart attack Mother Family Medical History: Memory Impairment Additional Family Medical History / Comment(s): Mother passed from [place] at the age of 86 Brother(s) Family Medical History: Congestive Heart Failure (CHF) Sister(s) Family Medical History: Congestive Heart Failure (CHF) Medications and Allergies Home Medications Medication Instructions Recorded Confirmed Type Alogliptin Benzoate [Alogliptin] 12.5 mg PO DAILY 04/27/21 04/27/21 History Apixaban [Eliquis] 5 mg PO BID 04/27/21 04/27/21 History Atorvastatin Calcium [Lipitor] 20 mg PO HS 04/27/21 04/27/21 History Calcium Carbonate/Vitamin D3 1 tab PO BID 04/27/21 04/27/21 History [Calcium 500 mg-Vit D3 5 mcg (200 Unit)] Cholecalciferol [Vitamin D3 (25 25 mcg PO DAILY 04/27/21 04/27/21 History Mcg = 1000 Iu)] Diltiazem HCl [Diltiazem HCl 24Hr 120 mg PO DAILY 04/27/21 04/27/21 History ER] Ergocalciferol (Vitamin D2) 1,250 mcg PO SA 04/27/21 04/27/21 History [Drisdol (50,000 Iu)] HYDROcodone/APAP 10-325MG [[place] 1 tab PO QID PRN 04/27/21 04/27/21 History 10-325] Lactobacillus Acidophilus 1 tab PO BID 04/27/21 04/27/21 History [Acidophilus] Losartan Potassium [Cozaar] 12.5 mg PO DAILY 04/27/21 04/27/21 History Magnesium 420mg 420 mg PO TID 04/27/21 04/27/21 History Metoprolol Tartrate [Lopressor] 100 mg PO BID 04/27/21 04/27/21 History Multivitamins, Thera [Multivitamin 1 tab PO DAILY 04/27/21 04/27/21 History (formulary)] Omeprazole 20 mg PO BID 04/27/21 04/27/21 History Pyridoxine [Vitamin B-6] 50 mg PO DAILY 04/27/21 04/27/21 History Tamsulosin HCl [Flomax] 0.4 mg PO DAILY 04/27/21 04/27/21 History Torsemide [Demadex] 100 mg PO DAILY 04/27/21 04/27/21 History polyethylene glycoL 3350 [Miralax] 17 gm PO DAILY 04/27/21 04/27/21 History Allergies Allergy/AdvReac Type Severity Reaction Status Date / Time enalaprilat [From Vasotec] Allergy Cough Verified 04/27/21 22:47 Physical Exam Vitals: Vital Signs Temp Pulse Resp BP Pulse Ox 04/29/21 08:07 97.5 F L 91 18 109/68 95 04/29/21 01:14 98.1 F 83 15 102/62 94 L 04/28/21 19:19 97.9 F 99 15 139/71 95 04/28/21 12:55 97.8 F 76 20 137/76 98 Intake and Output 04/28/21 04/29/21 04/29/21 22:59 06:59 14:59 Intake Total 180 Output Total 800 400 Balance -800 -400 180 Intake: Oral 180 Output: Urine 800 400 Other: Voiding Method Indwelling Catheter Indwelling Catheter # Bowel Movements 3 1 Results 04/29/21 08:40 04/29/21 08:40 Cardiac Enzymes 04/29/21 Range/Units 04:00 Troponin I 0.034 (0.000-0.034) ng/mL CBC 04/29/21 Range/Units 08:40 WBC 13.4 H (3.8-10.6) k/uL RBC 4.45 (4.30-5.90) m/uL Hgb 13.6 (13.0-17.5) gm/dL Hct 42.6 (39.0-53.0) % Plt Count 259 (150-450) k/uL Comprehensive Metabolic Panel 04/29/21 Range/Units 08:40 Sodium 140 (137-145) mmol/L Potassium 3.0 L (3.5-5.1) mmol/L Chloride 110 H (98-107) mmol/L Carbon Dioxide 22 (22-30) mmol/L BUN 32 H (9-20) mg/dL Creatinine 1.66 H (0.66-1.25) mg/dL Glucose 243 H (74-99) mg/dL Calcium 8.7 (8.4-10.2) mg/dL Current Medications Generic Name Dose Route Start Last Admin Trade Name Freq PRN Reason Stop Dose Admin Hydrocodone Bitart/Acetaminophen 1 each 04/28/21 09:03 04/29/21 05:48 Hydrocodone/Apap 10-325mg 1 Each Tab PO 1 each QID PRN Administration Pain Apixaban 5 mg 04/28/21 21:00 04/29/21 10:10 Apixaban 5 Mg Tab PO 5 mg BID MILTON Administration Protocol Atorvastatin Calcium 20 mg 04/28/21 21:00 04/28/21 19:53 Atorvastatin 20 Mg Tab PO 20 mg HS [place] Administration Diltiazem HCl 120 mg 04/28/21 09:15 04/29/21 10:11 Diltiazem Cd 120 Mg Cap.Er.24h PO 120 mg DAILY [place] Administration Lactated Ringer's 1,000 mls @ 125 mls/hr 04/28/21 12:15 04/29/21 05:00 Lactated Ringers IV 125 mls/hr .Q8H [facility] Administration Losartan Potassium 12.5 mg 04/28/21 09:15 04/29/21 10:08 Losartan 25 Mg Tab PO 12.5 mg DAILY [facility] Administration Magnesium Oxide 400 mg 04/28/21 09:15 04/29/21 10:11 Magnesium Oxide 400 Mg Tab PO 400 mg TID MILTON Administration Metoprolol Tartrate 100 mg 04/28/21 09:15 04/29/21 10:11 Metoprolol Tartrate 50 Mg Tab PO 100 mg BID [place] Administration Multivitamins 1 each 04/29/21 09:00 04/29/21 10:10 Multivitamins, Thera 1 Each Tab PO 1 each DAILY [place] Administration Naloxone HCl 0.2 mg 04/27/21 22:29 Naloxone 0.4 Mg/Ml 1 Ml Vial IV Q2M PRN Opioid Reversal Ondansetron HCl 4 mg 04/27/21 22:29 Ondansetron 4 Mg/2 Ml Vial IVP Q8HR PRN Nausea And Vomiting Pantoprazole Sodium 40 mg 04/28/21 09:15 04/29/21 08:07 Pantoprazole 40 Mg Tablet PO 40 mg DAILY@0730 [facility] Administration Pyridoxine HCl 50 mg 04/28/21 09:15 04/29/21 10:11 Pyridoxine 50 Mg Tab PO 50 mg DAILY [place] Administration Tamsulosin HCl 0.4 mg 04/28/21 18:30 04/28/21 17:55 Tamsulosin 0.4 Mg Cap.Er.24h PO 0.4 mg PC-SUPPER MILTON Administration Intake and Output 04/28/21 04/29/21 04/29/21 22:59 06:59 14:59 Intake Total 180 Output Total 800 400 Balance -800 -400 180 Intake: Oral 180 Output: Urine 800 400 Other: Voiding Method Indwelling Catheter Indwelling Catheter # Bowel Movements 3 1 04/29/21 08:40 04/29/21 08:40
--- NOTE | 2021-04-29 13:39 | XR ---
Left knee HISTORY: Acute on chronic pain 3 views the left knee No comparisons Bone mineralization is reduced which could limit sensitivity. Partial spurring and joint space loss i s present in the medial compartment, patellofemoral joint. Suprapatellar increased attenuation is con sistent with joint effusion. No fracture or dislocation. There is soft tissue swelling present. Vascu lar calcifications are noted. IMPRESSION: Osteoarthritis, joint effusion. Soft tissue swelling. Osteopenia. Limitations as describe d, alternate imaging may be of benefit.
--- NOTE | 2021-04-29 14:32 | P.PN ---
Subjective Progress Note Date: 04/29/21 CHIEF COMPLAINT: Abdominal pain HISTORY OF PRESENT ILLNESS: Patient reports improvement in his abdominal pain. His NG tube was discontinued yesterday. He is currently on a clear liquid diet. He is having bowel movements and flatus. He had been having diarrhea. Stool was negative for C. diff. He is having flatus. Denies any nausea or vomiting. He does have a fullness sensation after eating the clears. He is complaining of left knee pain. Computed tomography scan abdomen and pelvis with overall nonspecific nonobstructive bowel gas pattern. Abrupt transition change mid sigmoid colon without obvious mass correlate with colonoscopy advised. Afebrile. WBC is 13.4 hemoglobin 13.6 platelets 259 sodium 140 potassium 3.0 creatinine 1.66 Patient seen and examined with Dr. huddleston PHYSICAL EXAM: VITAL SIGNS: Reviewed. GENERAL: Well-developed in no acute distress. HEENT: No sclera icterus. Extraocular movements grossly intact. Moist buccal mucosa. Head is atraumatic, normocephalic. ABDOMEN: Soft. Obese. Nondistended. Nontender. NEUROLOGIC: Alert and oriented. Cranial nerves II through XII grossly intact. ASSESSMENT: 1. Abdominal pain 2. Narrowing noted at mid sigmoid colon on computed tomography scan. This narrowing may have contributed to patient's symptoms. Doubt ileus. Computed tomography scan findings discussed with Dr. huddleston. 3. Atrial fibrillation anticoagulated with Eliquis. Followed by cardiology. 4. Hypokalemia PLAN: -Patient will be scheduled for colonoscopy on 05/03/2021 -Continue a clear liquid diet -We will start patient's GoLTutamee prep tomorrow in preparation for a colonoscopy -Clear ensure drinks ordered -Patient's Eliquis will need to be held starting Monday -Replace potassium [facility] Customer Service Associate note has been reviewed by physician. Signing provider agrees with the documented findings, assessment, and plan of care. Objective - Vital Signs Vital signs: Vital Signs Temp 97.5 F L 04/29/21 08:07 Pulse 91 04/29/21 08:07 Resp 18 04/29/21 08:07 BP 109/68 04/29/21 08:07 Pulse Ox 95 04/29/21 08:07 Intake & Output 04/28/21 04/29/21 04/29/21 18:59 06:59 18:59 Intake Total 180 Output Total 800 400 Balance -800 -400 180 Intake: Oral 180 Output: Urine 800 400 Other: Voiding Method Indwelling Catheter Indwelling Catheter Indwelling Catheter # Bowel Movements 3 1 - Labs CBC & Chem 7: 04/29/21 08:40 04/29/21 08:40 Labs: Abnormal Lab Results - Last 24 Hours (Table) 04/28/21 04/28/21 04/29/21 Range/Units 16:51 20:19 07:05 WBC (3.8-10.6) k/uL Neutrophils # (1.3-7.7) k/uL Potassium (3.5-5.1) mmol/L Chloride (98-107) mmol/L BUN (9-20) mg/dL Creatinine (0.66-1.25) mg/dL Glucose (74-99) mg/dL POC Glucose (mg/dL) 137 H 222 H 160 H (75-99) mg/dL 04/29/21 04/29/21 04/29/21 Range/Units 08:40 08:40 11:20 WBC 13.4 H (3.8-10.6) k/uL Neutrophils # 10.8 H (1.3-7.7) k/uL Potassium 3.0 L (3.5-5.1) mmol/L Chloride 110 H (98-107) mmol/L BUN 32 H (9-20) mg/dL Creatinine 1.66 H (0.66-1.25) mg/dL Glucose 243 H (74-99) mg/dL POC Glucose (mg/dL) 208 H (75-99) mg/dL
--- NOTE | 2021-04-29 14:36 | ECHOF ---
Referral Reason:CHF MEASUREMENTS -------- HEIGHT: 188.0 cm WEIGHT: 137.0 kg BP: 102/62 IVSd: 1.3 cm (0.6 - 1.1) LVIDd: 4.5 cm (3.9 - 5.3) LVPWd: 1.3 cm (0.6 - 1.1) EDV(Teich): 93 ml IVSs: 1.9 cm LVIDs: 4.1 cm LVPWs: 1.8 cm %IVS Thck: 43 % ESV(Teich): 72 ml EF(Teich): 22 % %FS: 10 % SV(Teich): 21 ml LA Diam: 3.7 cm (2.7 - 3.8) RVIDd: 3.4 cm (< 3.3) LALs A4C: 6.3 cm LAAs A4C: 22.3 cm LAESV A-L A4C: 68 ml LAESV MOD A4C: 65 ml LALs A2C: 6.2 cm LAAs A2C: 22.0 cm LAESV A-L A2C: 66 ml LAESV MOD A2C: 64 ml LAESV(A-L): 67 ml LAESV Index (A-L): 25.92 ml/m Ao Diam: 4.2 cm (2.0 - 3.7) AV Cusp: 2.3 cm (1.5 - 2.6) EPSS: 0.6 cm MV DecT: 230 ms MV PHT: 61 ms MVA By PHT: 3.6 cm AV Vmax: 1.13 m/s AV maxP.14 mmHg TR Vmax: 2.60 m/s TR maxP.94 mmHg RAP: 5.00 mmHg RVSP: 31.94 mmHg MV EF SLOPE: 65.82 mm/s (70 - 150) MV EXCURSION: 17.18 mm (> 18.000) FINDINGS -------- Paced rhythm. This was a technically difficult study with suboptimal views. The left ventricular size is normal. There is mild concentric left ventricular hypertrophy. Overa ll left ventricular systolic function is normal with, an EF between 55 - 60 %. The right ventricle is mildly enlarged. Normal LA size by volume 22+/-6 ml/m2. The right atrium is normal in size. 3 ML ml of Lumason was utilized for enhancement of images. There is mild aortic valve sclerosis. Trace to mild aortic regurgitation. Mild mitral annular calcification present. Mild mitral regurgitation is present. Mild tricuspid regurgitation present. Right ventricular systolic pressure is normal at < 35 mmHg. Trace/mild (physiologic) pulmonic regurgitation. The aortic root is dilated measuring 4.2cm. IVC Not well visulized. There is no pericardial effusion. CONCLUSIONS -------- 1. Paced rhythm. 2. The left ventricular size is normal. 3. There is mild concentric left ventricular hypertrophy. 4. Overall left ventricular systolic function is normal with, an EF between 55 - 60 %. 5. The right ventricle is mildly enlarged. 6. 3 ML ml of Lumason was utilized for enhancement of images. 7. There is mild aortic valve sclerosis. 8. Trace to mild aortic regurgitation. 9. Mild mitral annular calcification present. 10. Mild mitral regurgitation is present. 11. Mild tricuspid regurgitation present. 12. Trace/mild (physiologic) pulmonic regurgitation. 13. The aortic root is dilated measuring 4.2cm. 14. There is no pericardial effusion. STAFF AUDITOR: Jazmyne Valle RDCS
[2021-04-29] MEDS ORDERED: POTASSIUM BICARBONATE/CIT AC 20 MEQ TABLET.EFF PO ONE (15:00)
[2021-04-29 16:57] LABS: Glucose,Whole Blood 135 mg/dL (75-99)
[2021-04-29] MEDS: TAMSULOSIN 0.4 MG CAP.ER.24H PO SCH (18:02)
--- NOTE | 2021-04-29 19:15 | P.PN ---
Progress Note - Text Progress Note Date: 04/29/21 Chief Complaint: Abdominal distention This is a 76-year-old patient, who follows with Dr. Barry. Chronic stable medical conditions include atrial fibrillation, CHF, diabetes, GERD, hypertension, pacemaker, depression. Patient normally is a full assist. Patient's left knee was giving trouble and gaveway patient therefore presented to [facility]. Patient did not have any BMs for 7 days. Was given strong laxatives. Patient described as having tons of bowel movements. Subsequently patient's abdomen: Distended. NG tube was placed 2 days ago. No fever no chills. Patient had been eating prior to that. He was sent down here for further surgical evaluation. Patient has small BM yesterday. Has been passing flatus. . Abdomen remains distended. April 29: NG tube was discontinued yesterday. Today liquid diet. Has had some loose BM and flat this. Less distention of the abdomen. Still bothered by his knee. X-rays ordered. Orthopedics consulted. Surgery planning colonoscopy. Review of systems: Was done for constitutional, cardiovascular, GI, pulmonary. relevant finding as above Active Medications Hydrocodone Bitart/Acetaminophen (Hydrocodone/Apap 10-325mg 1 Each Tab) 1 each PO QID PRN PRN Reason: Pain Last Admin: 04/29/21 13:40 Dose: 1 each Documented by: Apixaban (Apixaban 5 Mg Tab) 5 mg PO BID [facility]; Protocol Last Admin: 04/29/21 10:10 Dose: 5 mg Documented by: Atorvastatin Calcium (Atorvastatin 20 Mg Tab) 20 mg PO HS [facility] Last Admin: 04/28/21 19:53 Dose: 20 mg Documented by: Diltiazem HCl (Diltiazem Cd 120 Mg Cap.Er.24h) 120 mg PO DAILY [facility] Last Admin: 04/29/21 10:11 Dose: 120 mg Documented by: Lactated Ringer's (Lactated Ringers) 1,000 mls @ 125 mls/hr IV .Q8H [facility] Last Admin: 04/29/21 15:09 Dose: Not Given Documented by: Losartan Potassium (Losartan 25 Mg Tab) 12.5 mg PO DAILY [facility] Last Admin: 04/29/21 10:08 Dose: 12.5 mg Documented by: Magnesium Oxide (Magnesium Oxide 400 Mg Tab) 400 mg PO TID [facility] Last Admin: 04/29/21 18:03 Dose: 400 mg Documented by: Metoprolol Tartrate (Metoprolol Tartrate 50 Mg Tab) 100 mg PO BID [facility] Last Admin: 04/29/21 10:11 Dose: 100 mg Documented by: Multivitamins (Multivitamins, Thera 1 Each Tab) 1 each PO DAILY [facility] Last Admin: 04/29/21 10:10 Dose: 1 each Documented by: Naloxone HCl (Naloxone 0.4 Mg/Ml 1 Ml Vial) 0.2 mg IV Q2M PRN PRN Reason: Opioid Reversal Ondansetron HCl (Ondansetron 4 Mg/2 Ml Vial) 4 mg IVP Q8HR PRN PRN Reason: Nausea And Vomiting Pantoprazole Sodium (Pantoprazole 40 Mg Tablet) 40 mg PO DAILY@0730 [facility] Last Admin: 04/29/21 08:07 Dose: 40 mg Documented by: Polyethylene Glycol/Electrolytes (Peg 3350-Na Sulf,Bicarb,Cl/Kcl 4,000 Ml Bottle) 4,000 ml PO ONCE ONE Stop: 04/30/21 09:01 Pyridoxine HCl (Pyridoxine 50 Mg Tab) 50 mg PO DAILY [facility] Last Admin: 04/29/21 10:11 Dose: 50 mg Documented by: Tamsulosin HCl (Tamsulosin 0.4 Mg Cap.Er.24h) 0.4 mg PO PC-SUPPER [facility] Last Admin: 04/29/21 18:02 Dose: 0.4 mg Documented by: Past medical history to include: Atrial fibrillation, CHF, diabetes, GERD, hypertension, pacemaker, depression Social history: [facility]. Has full-time support. Patient is a full assist to a wheelchair. Can pivot. With help Family history: Father of a heart attack age 58 Physical examination: VITAL SIGNS: 97.5, 91, 18, 109/68, 95% room air GENERAL: Reclining in bed, awake, looking better. EYES: Pupils equal. Conjunctiva normal. HEENT: External appearance of nose and ears normal, oral cavity normal. NECK: JVD unable to assess; masses not palpable. HEART: Heart sounds distant; no edema. LUNGS: Respiratory rate normal; distant breath sounds. ABDOMEN: Soft, less distended, bowel sounds present nontender, liver spleen not palpable, no masses palpable. PSYCH: Alert and oriented x3; mood and affect normal. MUSCULOSKELETAL:No Clubbing/cyanosis;muscles-grossly intact. Evidence of OA NEUROLOGICAL: Cranial nerves grossly intact; no facial asymmetry, power and sensation grossly intact. INVESTIGATIONS, reviewed in the clinical context: April 29: White count 13.4 hemoglobin 13.6 potassium 3 BUN 32 creatinine 1.66 2-D echocardiogram: EF 55-60% X-ray left knee: Osteoarthritis. Joint effusion. Soft tissue swelling. Osteopenia. White count 12.8 hemoglobin 14.8 platelets 280 sodium 145 potassium 3 BUN 32 creatinine 1.46 UA positive for leukoesterase, WBC, RBC Coronavirus [PCR]: Not detected Computed tomography scan of the abdomen pelvis: Overall nonspecific pattern favoring nonobstructive bowel gas pattern. Abrupt transition change mid sigmoid colon without obvious mass. Chronic changes to the left kidney. Small calculi along the course of left ureter. Nondilated. 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 Assessment and plan: -Ileus following receiving laxatives. NG tube discontinued. Feeling better. Had BM and flatus. -Obesity BMI 38.8 -Possible Left kidney mass 6.8 x 4.4 cm. Have patient follow-up with urology -Primary osteoarthritis multiple joints bilateral Pain medicine when necessary -Acute on chronic pain in the left knee, with flareup of osteoarthritis and joint effusion Consult orthopedics -Persistent atrial fibrillation, rate controlled Lopressor 100 mg twice a day. Eliquis. Telemetry. Cardizem ER 100 mg a day -BPH Flomax 0.4 mg a day -Essential hypertension Cozaar, Cardizem extended release, Lopressor -GERD Omeprazole 20 mg twice a day NG tube discontinued yesterday. Clear liquids. Abdomen less distended. Dr. Escobedo is planning colonoscopy. Orthopedics consulted for left knee. Discussed with patient. Cutback IV fluids
[2021-04-29 20:16] LABS: Glucose,Whole Blood 173 mg/dL (75-99)
[2021-04-29] MEDS: ATORVASTATIN 20 MG TAB PO SCH (20:41)
[2021-04-30 06:11] LABS: Potassium 3.4 mmol/L (3.5-5.1)
[2021-04-30 07:37] LABS: Glucose,Whole Blood 144 mg/dL (75-99)
[2021-04-30] MEDS ORDERED: POTASSIUM BICARBONATE/CIT AC 20 MEQ TABLET.EFF PO ONE (08:06)
[2021-04-30] MEDS: LOSARTAN 25 MG TAB PO SCH (08:41)
[2021-04-30] MEDS: APIXABAN 5 MG TAB PO SCH ×2 (08:42→21:03)
[2021-04-30] MEDS: PANTOPRAZOLE 40 MG TABLET PO SCH (08:43)
[2021-04-30] MEDS: MAGNESIUM OXIDE 400 MG TAB PO SCH ×3 (08:45→21:03)
[2021-04-30] MEDS: MULTIVITAMINS, THERA 1 EACH TAB PO SCH (08:45)
[2021-04-30] MEDS: METOPROLOL TARTRATE 50 MG TAB PO SCH ×2 (08:46→21:03)
[2021-04-30] MEDS: PYRIDOXINE 50 MG TAB PO SCH (08:47)
[2021-04-30] MEDS: DILTIAZEM CD 120 MG CAP.ER.24H PO SCH (08:48)
[2021-04-30] MEDS ORDERED: PEG 3350-NA SULF,BICARB,CL/KCL 4,000 ML BOTTLE PO ONE (09:00)
--- NOTE | 2021-04-30 09:50 | P.CNOR ---
History of Present Illness - [facility] Consult date: 04/30/21 Consult reason: joint pain (Left knee pain) History of present illness: Patient is a 76-year-old male who was transferred down from [facility] to [facility] on 04/27/2021 for further evaluation of an abdominal issue. Apparently the patient is being worked up for severe constipation with possible ileus. He is being followed by both internal medicine and general surgery group. During the hospital stay he has mentioned some discomfort involving the left knee, the orthopedic team was consulted for this reason. Patient was evaluated today at bedside, he is resting comfortably. He explains to me that on April 04 he felt his knee give out, since then he's had significant pain in that knee and swelling. He states this would initially brought him to the hospital in early April. Patient denies any previous orthopedic surgery of the left knee. X-rays were done at our hospital, we have reviewed those images. At this time he notes most discomfort on the medial and lateral joint line of the knee when activating his muscles and trying to move. He denies any other orthopedic issues at this time. He denies any fevers or chills at this time. Besides the giving out sensation back in early April, he denies any other traumatic events. Review of Systems Constitutional: Reports as per HPI Past Medical History Past Medical History: Atrial Fibrillation, Heart Failure, Diabetes Mellitus, GERD/Reflux, Hypertension, Vascular Disorder History of Any Multi-Drug Resistant Organisms: None Reported, MRSA Year Discovered:: 2009 MDRO Source:: Back Past Surgical History: Back Surgery, Cholecystectomy, Pacemaker Past Anesthesia/Blood Transfusion Reactions: No Reported Reaction Type of Cardiac Device: Permanent Pacemaker Device Placement Date:: 06/2018 Past Psychological History: Depression Smoking Status: Never smoker Past Alcohol Use History: None Reported Past Drug Use History: None Reported - Past Family History Father Family Medical History: Myocardial Infarction ([place]) Additional Family Medical History / Comment(s): Father passed at the age of 58 from heart attack Mother Family Medical History: Memory Impairment Additional Family Medical History / Comment(s): Mother passed from [place] at the age of 86 Brother(s) Family Medical History: Congestive Heart Failure (CHF) Sister(s) Family Medical History: Congestive Heart Failure (CHF) Medications and Allergies Home Medications Medication Instructions Recorded Confirmed Type Alogliptin Benzoate [Alogliptin] 12.5 mg PO DAILY 04/27/21 04/27/21 History Apixaban [Eliquis] 5 mg PO BID 04/27/21 04/27/21 History Atorvastatin Calcium [Lipitor] 20 mg PO HS 04/27/21 04/27/21 History Calcium Carbonate/Vitamin D3 1 tab PO BID 04/27/21 04/27/21 History [Calcium 500 mg-Vit D3 5 mcg (200 Unit)] Cholecalciferol [Vitamin D3 (25 25 mcg PO DAILY 04/27/21 04/27/21 History Mcg = 1000 Iu)] Diltiazem HCl [Diltiazem HCl 24Hr 120 mg PO DAILY 04/27/21 04/27/21 History ER] Ergocalciferol (Vitamin D2) 1,250 mcg PO SA 04/27/21 04/27/21 History [Drisdol (50,000 Iu)] HYDROcodone/APAP 10-325MG [[place] 1 tab PO QID PRN 04/27/21 04/27/21 History 10-325] Lactobacillus Acidophilus 1 tab PO BID 04/27/21 04/27/21 History [Acidophilus] Losartan Potassium [Cozaar] 12.5 mg PO DAILY 04/27/21 04/27/21 History Magnesium 420mg 420 mg PO TID 04/27/21 04/27/21 History Metoprolol Tartrate [Lopressor] 100 mg PO BID 04/27/21 04/27/21 History Multivitamins, Thera [Multivitamin 1 tab PO DAILY 04/27/21 04/27/21 History (formulary)] Omeprazole 20 mg PO BID 04/27/21 04/27/21 History Pyridoxine [Vitamin B-6] 50 mg PO DAILY 04/27/21 04/27/21 History Tamsulosin HCl [Flomax] 0.4 mg PO DAILY 04/27/21 04/27/21 History Torsemide [Demadex] 100 mg PO DAILY 04/27/21 04/27/21 History polyethylene glycoL 3350 [Miralax] 17 gm PO DAILY 04/27/21 04/27/21 History Allergies Allergy/AdvReac Type Severity Reaction Status Date / Time enalaprilat [From Vasotec] Allergy Cough Verified 04/27/21 22:47 Physical Examination Left lower extremity: No obvious open lesions or sores are visualized throughout the extremity. There is no significant erythema surrounding the knee. There is some chronic vascular changes of the lower leg, involving the ankle. Obvious effusion present on the left knee Patient demonstrates mild tenderness with palpation to the medial and lateral joint line. He demonstrates no acute discomfort surrounding the patella. He denies any pain with palpation of the proximal femur, lower leg, including foot or ankle Logroll maneuver of the hip reproduces no pain. Plantar flexion, dorsiflexion, EHL, FHL are intact, there is no discomfort with range of motion of the foot or ankle. Range of motion of the knee is reduced due to discomfort. He is able to actively flex and extend which causes minimal pain. I am able to passively move the knee with very minimal discomfort reproduced. Calf is soft, no tenderness with palpation Compartments of the lower leg remained soft Sensory exam to light touch throughout that extremity is intact Dorsalis pedis pulses 2+ Results - Labs Labs: Abnormal Lab Results - Last 24 Hours (Table) 04/29/21 04/29/21 04/29/21 Range/Units 11:20 16:55 20:14 Potassium (3.5-5.1) mmol/L POC Glucose (mg/dL) 208 H 135 H 173 H (75-99) mg/dL 04/30/21 04/30/21 Range/Units 04:45 07:30 Potassium 3.4 L (3.5-5.1) mmol/L POC Glucose (mg/dL) 144 H (75-99) mg/dL Microbiology - Last 24 Hours (Table) 04/27/21 20:49 Urine Culture - Final Urine,Clean Catch H & H 04/28/21 04/29/21 Range/Units 03:45 08:40 Hgb 14.8 13.6 (13.0-17.5) gm/dL Hct 46.2 42.6 (39.0-53.0) % Result Diagrams: 04/29/21 08:40 04/30/21 04:45 - Diagnostic results Knee x-ray: report reviewed (Reports and images were reviewed of the left knee. Severe medial joint and patellofemoral joint osteoarthritis is noted. Fusion is also visualized.), image reviewed Assessment and Plan Assessment: Left knee pain Left knee effusion Left knee severe medial and patellofemoral joint osteoarthritis Leukocytosis Multiple medical comorbidities Plan: I was able to review the case, including both physical exam findings and imaging studies my attending Dr. Perkins. No emergent orthopedic surgical intervention warranted at this time. I did discuss the patient today at bedside possible treatment options. Taking into consideration the patient's elevated white blood cell count and current workup for the constipation possible ileus, I would like to hold off on aspiration of the left knee at this time. There is a very low concern for a septic arthritis of the left knee at this time. We will continue to evaluate the patient during his inpatient stay, if the leukocytosis does not improve and other pathologies have been ruled out, we may revisit the possibility of an a spiration of the left knee. We did discuss the patient's osteoarthritis in his left knee and that the only permanent fix would be a total knee arthroplasty. We discussed that this is a very permanent fix and with his current medical state and medical comorbidities he would be very high risk. I recommend follow-up with Dr. Perkins in the outpatient setting at a later date to discuss further details. GI and DVT prophylaxis per primary medical service Pain control, recommend ice and elevating. Patient does take [place] 10 mg/325 mg for other problems, this may be resumed Weight-bear as tolerated, recommend use a walker at all times PT/OT evaluation We will continue to follow patient during his inpatient stay, please contact us with any questions Time with Patient: Less than 30
[2021-04-30 11:14] LABS: Glucose,Whole Blood 154 mg/dL (75-99)
--- NOTE | 2021-04-30 12:04 | P.PN ---
Subjective This is a 76-year-old patient, who follows with Dr. Barry. Chronic stable medical conditions include atrial fibrillation, CHF, diabetes, GERD, hyper tension, pacemaker, depression. Patient normally is a full assist. Patient's left knee was giving trouble and gaveway patient therefore presented to [facility]. Patient did not have any BMs for 7 days. Was given strong laxatives. Patient described as having tons of bowel movements. Subsequently patient's abdomen: Distended. NG tube was placed 2 days ago. No fever no chills. Patient had been eating prior to that. He was sent down here for further surgical evaluation. Patient has small BM yesterday. Has been passing flatus. . Abdomen remains distended. April 29: NG tube was discontinued yesterday. Today liquid diet. Has had some loose BM and flat this. Less distention of the abdomen. Still bothered by his knee. X-rays ordered. Orthopedics consulted. Surgery planning colonoscopy. Subjective 04/30/2021 This is a pleasant 76 years old male with multiple medical problems he was originally admitted to [facility] for left leg cellulitis per documentation and was transferred to this facility for recurrent abdominal distention and ileus. Today patient is fully awake and oriented, he is on liquid diet and he tolerates that well with no vomiting. No abdominal pain or tenderness about his abdomen is distended. He had 2 loose bowel movement but C. diff was tested and was negative. Surgery team on the case and the planning on colonoscopy on Monday. No GI service coverage of this facility during this week His left knee is mildly warm and tender and swollen, orthopedic consult was obtained yesterday and they don't suspect septic arthritis but rather it is osteoarthritis and they recommended outpatient follow-up Patient was still have mild leukocytosis but no fever and we will check for procalcitonin, and if is elevated significantly then we will consider further infectious workup. Also patient was suspected to have left kidney mass, patient unaware of it. Risk of malignancy explained. Also patient have many ureteric calculi. However urine culture is negative and patient is off antibiotics now. He remains on Ringer lactate at 50 mg/h, Eliquis home dose of 5 mg. Ejection fraction 55-60% mildly elevated creatinine we'll keep monitoring, patient informed Objective - Vital Signs Vital signs: Vital Signs Temp 97.6 F 04/30/21 08:00 Pulse 86 04/30/21 08:00 Resp 18 04/30/21 08:00 BP 112/79 04/30/21 08:00 Pulse Ox 95 04/30/21 08:00 Intake & Output 04/29/21 04/30/21 04/30/21 18:59 06:59 18:59 Intake Total 180 1500 Output Total 675 Balance 180 825 Intake: Intake, IV Titration 600 Amount Lactated Ringers 1,000 ml 600 @ 50 mls/hr IV .Q20H [facility] Rx#:[id number] Oral 180 900 Output: Urine 675 Other: Voiding Method Indwelling Catheter Indwelling Catheter Indwelling Catheter - Exam GENERAL: The patient is alert and oriented x3, not in any acute distress. Well developed, well nourished. HEENT: Pupils are round and equally reacting to light. EOMI. No scleral icterus. No conjunctival pallor. Normocephalic, atraumatic. No pharyngeal erythema. No thyromegaly. CARDIOVASCULAR: S1 and S2 present. No murmurs, rubs, or gallops. PULMONARY: Chest is clear to auscultation, no wheezing or crackles. -ABDOMEN: Soft, nontender,distended, normoactive bowel sounds. No palpable organomegaly. Chanel catheter is in place MUSCULOSKELETAL: No joint swelling or deformity. EXTREMITIES: No cyanosis, clubbing, or pedal edema. NEUROLOGICAL: Gross neurological examination did not reveal any focal deficits. SKIN: No rashes. no petechiae. - Labs CBC & Chem 7: 04/29/21 08:40 04/30/21 04:45 Labs: Abnormal Lab Results - Last 24 Hours (Table) 04/29/21 04/29/21 04/29/21 Range/Units 11:20 16:55 20:14 Potassium (3.5-5.1) mmol/L POC Glucose (mg/dL) 208 H 135 H 173 H (75-99) mg/dL 04/30/21 04/30/21 Range/Units 04:45 07:30 Potassium 3.4 L (3.5-5.1) mmol/L POC Glucose (mg/dL) 144 H (75-99) mg/dL Microbiology - Last 24 Hours (Table) 04/27/21 20:49 Urine Culture - Final Urine,Clean Catch Assessment and Plan Assessment: Ileitis with recurrent ileus and abdominal distention, With CT showing abdominal about transition change in the mid sigmoid colon Without obvious mass Left knee osteoarthritis rather than septic arthritis per orthopedic team Possible acute kidney injury, unknown baseline Possible left kidney mass, patient is aware Multiple left ureteral calculi Chronic atrial fibrillation on Eliquis at home Hypertension Mild leukocytosis Plan: This is a pleasant 89 salt male with abdominal ileus, possible ileitis, acute kidney injury and left malleolus arthritis Continue with Ringer lactate Surgery team consult are planning for bronchoscopy on Monday Consider urology evaluation Monitor creatinine Labs and medication were reviewed.. Continue same treatment. Continue with symptomatic treatment. Resume home medication. Monitor lytes and vitals. DVT and GI prophylaxis. Further recommendationsas per clinical course of the patient DVT prophylaxis: Eliquis GI Prophylaxis: Ppi PT/OT: Pending Prognosis is guarded
[2021-04-30 12:05] LABS: African American GFR (CKD) 42 (>60 ml/min/1.73 sqM); Anion Gap 7 mmol/L; Blood Urea Nitrogen 35 mg/dL (9-20); Calcium 8.8 mg/dL (8.4-10.2); Carbon Dioxide 27 mmol/L (22-30); Chloride 103 mmol/L (98-107); Glucose 145 mg/dL (74-99); Non-African American GFR(CKD) 37 (>60 ml/min/1.73 sqM); Potassium 3.4 mmol/L (3.5-5.1); Sodium 137 mmol/L (137-145)
--- NOTE | 2021-04-30 14:07 | P.PN ---
Subjective Progress Note Date: 04/30/21 CHIEF COMPLAINT: Abdominal pain HISTORY OF PRESENT ILLNESS: Social service following regards to patient's abdominal pain and narrowing that was noted on CAT scan at the mid sigmoid colon. Patient is complaining of more abdominal bloating and distention today. He feels very full and was unable to start the GoLYTELY prep today. No nausea or vomiting. He did have a large diarrhea bowel movements. He is having flatus. Afebrile. Potassium 3.4 magnesium 2.0. She is seen by orthopedics for left knee effusion. Patient seen and examined with Dr. huddleston PHYSICAL EXAM: VITAL SIGNS: Reviewed. GENERAL: Well-developed in no acute distress. HEENT: No sclera icterus. Extraocular movements grossly intact. Moist buccal mucosa. Head is atraumatic, normocephalic. ABDOMEN: Obese. Distended nontender NEUROLOGIC: Alert and oriented. Cranial nerves II through XII grossly intact. ASSESSMENT: 1. Abdominal pain 2. Narrowing noted at mid sigmoid colon on computed tomography scan. This narrowing may be contributing to patient's symptoms. Doubt ileus. Computed tomography scan findings discussed with Dr. huddleston. 3. Atrial fibrillation anticoagulated with Eliquis. Followed by cardiology. 4. Hypokalemia PLAN: -Patient is scheduled for colonoscopy on 05/03/[address] Huddleston -Make patient nothing by mouth due to his increased abdominal distention -Cancel GoLYTELY prep for today -Start GoLYTELY prep on Monday for colonoscopy on Monday -Patient's Eliquis will need to be held starting Monday -Replace potassium Physician Jewel Bearing Turner note has been reviewed by physician. Signing provider agrees with the documented findings, assessment, and plan of care. Objective - Vital Signs Vital signs: Vital Signs Temp 97.6 F 04/30/21 08:00 Pulse 86 04/30/21 08:00 Resp 18 04/30/21 08:00 BP 112/79 04/30/21 08:00 Pulse Ox 95 04/30/21 08:00 Intake & Output 04/29/21 04/30/21 04/30/21 18:59 06:59 18:59 Intake Total 180 1500 Output Total 675 Balance 180 825 Intake: Intake, IV Titration 600 Amount Lactated Ringers 1,000 ml 600 @ 50 mls/hr IV .Q20H [facility] Rx#:[id number] Oral 180 900 Output: Urine 675 Other: Voiding Method Indwelling Catheter Indwelling Catheter Indwelling Catheter - Labs CBC & Chem 7: 04/29/21 08:40 04/30/21 04:45 Labs: Abnormal Lab Results - Last 24 Hours (Table) 04/29/21 04/29/21 04/29/21 Range/Units 11:20 16:55 20:14 Potassium (3.5-5.1) mmol/L POC Glucose (mg/dL) 208 H 135 H 173 H (75-99) mg/dL 04/30/21 04/30/21 04/30/21 Range/Units 04:45 07:30 11:12 Potassium 3.4 L (3.5-5.1) mmol/L POC Glucose (mg/dL) 144 H 154 H (75-99) mg/dL Microbiology - Last 24 Hours (Table) 04/27/21 20:49 Urine Culture - Final Urine,Clean Catch
[2021-04-30] MEDS: METOCLOPRAMIDE 5 MG/ML 2 ML VIAL IVP SCH ×2 (14:25→17:06)
[2021-04-30] MEDS: LACTATED RINGERS 1,000 ML IV SCH ×2 (14:25→17:05)
[2021-04-30 14:30] VITALS: BMI 38.7
[2021-04-30 16:35] LABS: Glucose,Whole Blood 171 mg/dL (75-99)
[2021-04-30] MEDS: TAMSULOSIN 0.4 MG CAP.ER.24H PO SCH (17:07)
[2021-04-30] MEDS: ATORVASTATIN 20 MG TAB PO SCH (21:03)
[2021-04-30 21:29] LABS: Glucose,Whole Blood 117 mg/dL (75-99)
[2021-05-01] MEDS: METOCLOPRAMIDE 5 MG/ML 2 ML VIAL IVP SCH ×4 (01:12→18:08)
[2021-05-01 07:38] LABS: Glucose,Whole Blood 123 mg/dL (75-99)
[2021-05-01] MEDS: MULTIVITAMINS, THERA 1 EACH TAB PO SCH (08:56)
[2021-05-01] MEDS: MAGNESIUM OXIDE 400 MG TAB PO SCH ×3 (08:56→20:45)
[2021-05-01] MEDS: DILTIAZEM CD 120 MG CAP.ER.24H PO SCH (08:56)
[2021-05-01] MEDS: PANTOPRAZOLE 40 MG TABLET PO SCH (08:56)
[2021-05-01] MEDS: METOPROLOL TARTRATE 50 MG TAB PO SCH ×2 (08:56→20:45)
[2021-05-01] MEDS: PYRIDOXINE 50 MG TAB PO SCH (08:56)
[2021-05-01] MEDS ORDERED: ERGOCALCIFEROL 1,250 MCG (50,000 IU) CAPSULE PO SCH (09:00)
[2021-05-01 09:04] LABS: Basophils # (A) 0.07 X 10*3/uL (0.00-0.10); Basophils % (A) 0.7 %; Eosinophils # (A) 0.21 X 10*3/uL (0.04-0.35); Eosinophils % (A) 2.1 %; HCT 40.3 % (39.6-50.0); HGB 12.9 g/dL (13.0-17.0); Lymphocytes # (A) 2.02 X 10*3/uL (0.90-5.00); Lymphocytes % (A) 20.2 %; MCH 29.7 pg (27.0-32.0); MCV 92.6 fL (80.0-97.0); Mean Platelet Volume 10.9 fL (9.5-12.2); Monocytes # (A) 0.88 X 10*3/uL (0.20-1.00); Monocytes % (A) 8.8 %; Neutrophils # (A) 6.67 X 10*3/uL (1.80-7.70); Neutrophils % (A) 66.9 %; Platelet Count 229 X 10*3/uL (140-440); RBC 4.35 X 10*6/uL (4.40-5.60); RDW 15.2 % (11.5-14.5); WBC 9.98 X 10*3/uL (4.50-10.00)
[2021-05-01 09:11] LABS: African American GFR (CKD) 55.8 (60.0-200.0); Anion Gap 12.4 mmol/L (10.00-18.00); BUN/Creat Ratio 18.07 Ratio (12.00-20.00); Blood Urea Nitrogen 25.3 mg/dL (9.0-27.0); Calcium 8.5 mg/dL (8.7-10.3); Carbon Dioxide 23.6 mmol/L (20.0-27.5); Non-African American GFR(CKD) 48.1 (60.0-200.0); Potassium 3.3 mmol/L (3.5-5.5)
--- NOTE | 2021-05-01 10:35 | P.PN ---
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 It may be attached to the kidney by a narrow isthmus. He is not aware of ever being told of the atrophic kidney or this mass. He is asx The mass appears dense based on hounsfield units of 65. I will review with radiology so as to determine the next step I am not sure this is even renal. Objective - Vital Signs Vital signs: Vital Signs Temp 97.6 F 05/01/21 08:00 Pulse 70 05/01/21 08:00 Resp 16 05/01/21 08:00 BP 146/80 05/01/21 08:00 Pulse Ox 95 05/01/21 08:00 Intake & Output 04/30/21 05/01/21 05/01/21 18:59 06:59 18:59 Intake Total 600 Output Total 450 300 Balance -450 300 Weight 136.985 kg Intake: Intake, IV Titration 600 Amount Lactated Ringers 1,000 ml 600 @ 50 mls/hr IV .[facility] Rx#:[id number] Output: Urine 450 300 Other: Voiding Method Indwelling Catheter Indwelling Catheter Indwelling Catheter - Labs CBC & Chem 7: 05/01/21 04:50 05/01/21 04:50 Labs: Abnormal Lab Results - Last 24 Hours (Table) 04/30/21 04/30/21 04/30/21 Range/Units 04:45 04:45 11:12 RBC (4.40-5.60) X 10*6/uL Hgb (13.0-17.0) g/dL RDW (11.5-14.5) % Immature Gran # (0.00-0.04) X 10*3/uL Potassium 3.4 L (3.5-5.1) mmol/L BUN 35 H (9-20) mg/dL Creatinine 1.76 H (0.66-1.25) mg/dL Est GFR (CKD-EPI)AfAm (60.0-200.0) Est GFR (CKD-EPI)NonAf (60.0-200.0) Glucose 145 H (74-99) mg/dL POC Glucose (mg/dL) 154 H (75-99) mg/dL Calcium (8.7-10.3) mg/dL Procalcitonin 0.11 H (0.02-0.09) ng/mL 04/30/21 04/30/21 05/01/21 Range/Units 16:34 21:26 04:50 RBC 4.35 L (4.40-5.60) X 10*6/uL Hgb 12.9 L (13.0-17.0) g/dL RDW 15.2 H (11.5-14.5) % Immature Gran # 0.13 H (0.00-0.04) X 10*3/uL Potassium (3.5-5.1) mmol/L BUN (9-20) mg/dL Creatinine (0.66-1.25) mg/dL Est GFR (CKD-EPI)AfAm (60.0-200.0) Est GFR (CKD-EPI)NonAf (60.0-200.0) Glucose (74-99) mg/dL POC Glucose (mg/dL) 171 H 117 H (75-99) mg/dL Calcium (8.7-10.3) mg/dL Procalcitonin (0.02-0.09) ng/mL 05/01/21 05/01/21 Range/Units 04:50 07:37 RBC (4.40-5.60) X 10*6/uL Hgb (13.0-17.0) g/dL RDW (11.5-14.5) % Immature Gran # (0.00-0.04) X 10*3/uL Potassium 3.3 L (3.5-5.1) mmol/L BUN (9-20) mg/dL Creatinine (0.66-1.25) mg/dL Est GFR (CKD-EPI)AfAm 55.8 L (60.0-200.0) Est GFR (CKD-EPI)NonAf 48.1 L (60.0-200.0) Glucose 127 H (74-99) mg/dL POC Glucose (mg/dL) 123 H (75-99) mg/dL Calcium 8.5 L (8.7-10.3) mg/dL Procalcitonin (0.02-0.09) ng/mL
[2021-05-01] MEDS ORDERED: POTASSIUM CHLORIDE ER 20 MEQ TAB.ER PO STA (11:18)
--- NOTE | 2021-05-01 11:21 | P.NPCON ---
History of Present Illness - Reason for Consult acute renal failure - History of Present Illness Reason for consultation: Acute kidney injury History of present illness: Patient is a 76-year-old male seen in consultation for acute kidney injury. Unknown as to what his baseline renal function is. 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 Creatinine was 1.46 this admission and peaked at 1 .76 on 04/30/2021. It is back down to 1.4 today. Patient presented to the hospital with abdominal pain. Patient states he's been feeling weak and having knee pain since 04/04/2021 and went to the ER for those complaints. He also complains of diarrhea for the last couple of weeks. Oral intake has been poor. He is currently nothing by mouth. Has a Chanel catheter. No hematuria. Denies use of nonsteroidals. He was taking Demadex 100 mg daily at home. Currently he is receiving IV fluids. He does have history of diabetes. No fever or chills. No cough. No chest pain or shortness of breath. Echocardiogram done this admission showed preserved ejection fraction. CT of the abdomen and pelvis showed no hydronephrosis. He is noted to have atrophic left kidney and there was a possible mass noted. He's being followed by urology. Hemodynamically stable. Vital signs are stable. General: The patient appeared well nourished and normally developed. HEENT: Head exam is unremarkable. LUNGS: Breath sounds decreased. HEART: Rate and Rhythm are regular. ABDOMEN: Soft, obese. EXTREMITITES: No edema. Past Medical History Past Medical History: Atrial Fibrillation, Heart Failure, Diabetes Mellitus, GERD/Reflux, Hypertension, Vascular Disorder History of Any Multi-Drug Resistant Organisms: None Reported, MRSA Date of last positivie culture/infection: 2009 MDRO Source:: Back Past Surgical History: Back Surgery, Cholecystectomy, Pacemaker Past Anesthesia/Blood Transfusion Reactions: No Reported Reaction Type of Cardiac Device: Permanent Pacemaker Device Placement Date:: 06/2018 Past Psychological History: Depression Smoking Status: Never smoker Past Alcohol Use History: None Reported Past Drug Use History: None Reported - Past Family History Father Family Medical History: Myocardial Infarction ([place]) Additional Family Medical History / Comment(s): Father passed at the age of 58 from heart attack Mother Family Medical History: Memory Impairment Additional Family Medical History / Comment(s): Mother passed from [place] at the age of 86 Brother(s) Family Medical History: Congestive Heart Failure (CHF) Sister(s) Family Medical History: Congestive Heart Failure (CHF) Medications and Allergies Home Medications Medication Instructions Recorded Confirmed Type Alogliptin Benzoate [Alogliptin] 12.5 mg PO DAILY 04/27/21 04/27/21 History Apixaban [Eliquis] 5 mg PO BID 04/27/21 04/27/21 History Atorvastatin Calcium [Lipitor] 20 mg PO HS 04/27/21 04/27/21 History Calcium Carbonate/Vitamin D3 1 tab PO BID 04/27/21 04/27/21 History [Calcium 500 mg-Vit D3 5 mcg (200 Unit)] Cholecalciferol [Vitamin D3 (25 25 mcg PO DAILY 04/27/21 04/27/21 History Mcg = 1000 Iu)] Diltiazem HCl [Diltiazem HCl 24Hr 120 mg PO DAILY 04/27/21 04/27/21 History ER] Ergocalciferol (Vitamin D2) 1,250 mcg PO SA 04/27/21 04/27/21 History [Drisdol (50,000 Iu)] HYDROcodone/APAP 10-325MG [[place] 1 tab PO QID PRN 04/27/21 04/27/21 History 10-325] Lactobacillus Acidophilus 1 tab PO BID 04/27/21 04/27/21 History [Acidophilus] Losartan Potassium [Cozaar] 12.5 mg PO DAILY 04/27/21 04/27/21 History Magnesium 420mg 420 mg PO TID 04/27/21 04/27/21 History Metoprolol Tartrate [Lopressor] 100 mg PO BID 04/27/21 04/27/21 History Multivitamins, Thera [Multivitamin 1 tab PO DAILY 04/27/21 04/27/21 History (formulary)] Omeprazole 20 mg PO BID 04/27/21 04/27/21 History Pyridoxine [Vitamin B-6] 50 mg PO DAILY 04/27/21 04/27/21 History Tamsulosin HCl [Flomax] 0.4 mg PO DAILY 04/27/21 04/27/21 History Torsemide [Demadex] 100 mg PO DAILY 04/27/21 04/27/21 History polyethylene glycoL 3350 [Miralax] 17 gm PO DAILY 04/27/21 04/27/21 History Allergies Allergy/AdvReac Type Severity Reaction Status Date / Time enalaprilat [From Vasotec] Allergy Cough Verified 04/27/21 22:47 Physical Exam Vitals: Vital Signs Temp Pulse Resp BP Pulse Ox 05/01/21 08:00 97.6 F 70 16 146/80 95 05/01/21 06:33 87 139/84 96 05/01/21 02:14 98 F 81 15 141/84 96 04/30/21 20:15 98.4 F 93 15 146/84 96 04/30/21 19:45 15 04/30/21 14:00 98.6 F 71 17 115/67 97 Intake and Output 04/30/21 05/01/21 05/01/21 22:59 06:59 14:59 Intake Total 600 Output Total 450 300 Balance -450 300 Intake: Intake, IV Titration 600 Amount Lactated Ringers 1,000 ml 600 @ 50 mls/hr IV .Q20H [facility] Rx#:[id number] Output: Urine 450 300 Other: Voiding Method Indwelling Catheter Indwelling Catheter Results - Lab Results Most recent lab results Calcium 8.5 mg/dL (8.7-10.3) L 05/01/21 04:50 Magnesium 2.0 mg/dL (1.6-2.3) 04/30/21 04:45 05/01/21 04:50 05/01/21 04:50 Assessment and Plan Plan: Assessment: 1. Acute kidney injury mostly prerenal secondary to poor intake and diarrhea improved with IV hydration. Creatinine peaked at 1.76 this admission and is 1.4 today. Unknown baseline renal function. 2. Hypokalemia from poor intake. 3. Possible chronic kidney disease. 4. Atrophic left kidney with possible mass. Urology following. 5. A. fib. Rate controlled. Cardiology following. 6. Benign hypertension. Stable. 7. Abdominal pain. Narrowing at midsigmoid colon present on CAT scan per surgery. Scheduled for colonoscopy Monday. Plan: Maintain IV hydration. Replace potassium. Check renal ultrasound. Avoid nephrotoxins. Continue to monitor renal function and urine output. Thank you for the consultation. I will continue to follow the patient with you during his hospital stay.
[2021-05-01 11:41] LABS: Glucose,Whole Blood 135 mg/dL (75-99)
--- NOTE | 2021-05-01 12:53 | P.PN ---
Subjective Progress Note Date: 05/01/21 Principal diagnosis: Left knee pain/effusion, left knee osteoarthritis Patient was evaluated today at bedside, resting comfortably. He states that the knee is feeling a little bit better today. He still has some discomfort throughout the knee but much improved. Patient states he hasn't been up ambulating. Patient has no other orthopedic complaints at this time. Objective - Vital Signs Vital signs: Vital Signs Temp 97.6 F 05/01/21 08:00 Pulse 70 05/01/21 08:00 Resp 16 05/01/21 08:00 BP 146/80 05/01/21 08:00 Pulse Ox 95 05/01/21 08:00 Intake & Output 04/30/21 05/01/21 05/01/21 18:59 06:59 18:59 Intake Total 600 Output Total 450 300 Balance -450 300 Weight 136.985 kg Intake: Intake, IV Titration 600 Amount Lactated Ringers 1,000 ml 600 @ 50 mls/hr IV .Q20H [facility] Rx#:[id number] Output: Urine 450 300 Other: Voiding Method Indwelling Catheter Indwelling Catheter Indwelling Catheter - Exam Left lower extremity: No obvious open lesions or sores are visualized throughout the extremity. There is no significant erythema surrounding the knee. There is some chronic vascular changes of the lower leg, involving the ankle. Mild effusion present on the left knee Patient demonstrates mild tenderness with palpation to the medial and lateral joint line. He demonstrates no acute discomfort surrounding the patella. He denies any pain with palpation of the proximal femur, lower leg, including foot or ankle Logroll maneuver of the hip reproduces no pain. Plantar flexion, dorsiflexion, EHL, FHL are intact, there is no discomfort with range of motion of the foot or ankle. Range of motion both actively and passively of the left knee causes less pain today. Calf is soft, no tenderness with palpation Compartments of the lower leg remained soft Sensory exam to light touch throughout that extremity is intact Dorsalis pedis pulses 2+ - Labs CBC & Chem 7: 05/01/21 04:50 05/01/21 04:50 Labs: Abnormal Lab Results - Last 24 Hours (Table) 04/30/21 04/30/21 04/30/21 Range/Units 04:45 16:34 21:26 RBC (4.40-5.60) X 10*6/uL Hgb (13.0-17.0) g/dL RDW (11.5-14.5) % Immature Gran # (0.00-0.04) X 10*3/uL Potassium (3.5-5.5) mmol/L Est GFR (CKD-EPI)AfAm (60.0-200.0) Est GFR (CKD-EPI)NonAf (60.0-200.0) Glucose (70-110) mg/dL POC Glucose (mg/dL) 171 H 117 H (75-99) mg/dL Calcium (8.7-10.3) mg/dL Procalcitonin 0.11 H (0.02-0.09) ng/mL 05/01/21 05/01/21 05/01/21 Range/Units 04:50 04:50 07:37 RBC 4.35 L (4.40-5.60) X 10*6/uL Hgb 12.9 L (13.0-17.0) g/dL RDW 15.2 H (11.5-14.5) % Immature Gran # 0.13 H (0.00-0.04) X 10*3/uL Potassium 3.3 L (3.5-5.5) mmol/L Est GFR (CKD-EPI)AfAm 55.8 L (60.0-200.0) Est GFR (CKD-EPI)NonAf 48.1 L (60.0-200.0) Glucose 127 H (70-110) mg/dL POC Glucose (mg/dL) 123 H (75-99) mg/dL Calcium 8.5 L (8.7-10.3) mg/dL Procalcitonin (0.02-0.09) ng/mL 05/01/21 Range/Units 11:40 RBC (4.40-5.60) X 10*6/uL Hgb (13.0-17.0) g/dL RDW (11.5-14.5) % Immature Gran # (0.00-0.04) X 10*3/uL Potassium (3.5-5.5) mmol/L Est GFR (CKD-EPI)AfAm (60.0-200.0) Est GFR (CKD-EPI)NonAf (60.0-200.0) Glucose (70-110) mg/dL POC Glucose (mg/dL) 135 H (75-99) mg/dL Calcium (8.7-10.3) mg/dL Procalcitonin (0.02-0.09) ng/mL Assessment and Plan Assessment: Left knee pain Left knee effusion Left knee severe medial and patellofemoral joint osteoarthritis Leukocytosis Multiple medical comorbidities Plan: Patient symptoms seemed to have overall improved with regards to the left knee. Continues to be very low concern for septic arthritis at this time. GI and DVT prophylaxis per primary medical service Pain control, recommend ice and elevating. Patient does take [place] 10 mg/325 mg for other problems, this may be resumed Weight-bear as tolerated, recommend use a walker at all times PT/OT evaluation Discussed with patient again and we would have him follow up in the outpatient setting after discharge to discuss the left knee osteoarthritis and other treatment options. An orthopedic standpoint he is stable, we will sign off patient at this time. Please don't hesitate to contact us with any further questions. Time with Patient: Less than 30
[2021-05-01 13:18] LABS: Appearance,Urine Turbid (Clear); Bacteria,Urine Moderate /hpf; Bilirubin,Urine Negative (Negative); Blood,Urine Large (Negative); Color,Urine Yellow; Glucose,Urine (UA) Negative (Negative); Ketones,Urine Trace (Negative); Leukocyte Esterase,Urine Large (Negative); Mucus,Urine Occasional /hpf; Nitrite,Urine Negative (Negative); PH, Urine 8.5 (5.0-8.0); Protein,Urine 1+ (Negative); RBC,Urine 22 /hpf (0-5); Specific Gravity,Urine 1.019 (1.001-1.035); Triple Phosphate Crystal,Urine Few /hpf; Urobilinogen,Urine <2.0 mg/dL (<2.0); WBC,Urine 168 /hpf (0-5)
--- NOTE | 2021-05-01 13:49 | P.PN ---
Subjective Progress Note Date: 05/01/21 CHIEF COMPLAINT: Sigmoid colon obstruction HISTORY OF PRESENT ILLNESS: The patient is a 76-year-old male with abdominal distention status post computed tomography scan demonstrating sigmoid narrowing. He reports abdominal fullness. He is getting a bedside renal ultrasound.. ROS: No fevers or chills. No new chest pain. No productive sputum PHYSICAL EXAM: VITAL SIGNS: Reviewed CONSTITUTIONAL: Well developed and in no acute distress. EYES: Conjuctivae without sclera icterus. Extraocular movements grossly intact. HEAD, EARS, NOSE, THROAT: Moist buccal mucosa. Head is atraumatic, normocepha lic. No nasal drainage. RESPIRATORY: Non-labored respirations and equal bilateral excursions. CARDIOVASCULAR: Palpable 2+ radial pulses. ABDOMEN: Protuberant with distention.No peritonitis. MUSCULOSKELETAL: No gross deformity of the lower extremities noted. No clubbing. No cyanosis. SKIN: Good skin turgor. Well perfused. NEUROLOGIC: Cranial nerves II through XII grossly intact. No focal or lateralizing signs. PSYCH: Alert to person. CLINICAL LABS: Reviewed. WBC normal 9.9. Hemoglobin 12.9, mildly low. ASSESSMENT: 1. Sigmoid colon partial obstruction 2. Morbid obesity, BMI 38.8 PLAN: 1. Due to abnormal computed tomography scan findings, colonoscopy advised. 2. Will add simethicone for abdominal distention. Objective - Vital Signs Vital signs: Vital Signs Temp 97.6 F 05/01/21 08:00 Pulse 70 05/01/21 08:00 Resp 16 05/01/21 08:00 BP 146/80 05/01/21 08:00 Pulse Ox 95 05/01/21 08:00 Intake & Output 04/30/21 05/01/21 05/01/21 18:59 06:59 18:59 Intake Total 600 Output Total 450 300 Balance -450 300 Weight 136.985 kg Intake: Intake, IV Titration 600 Amount Lactated Ringers 1,000 ml 600 @ 50 mls/hr IV .Q20H [facility] Rx#:[id number] Output: Urine 450 300 Other: Voiding Method Indwelling Catheter Indwelling Catheter Indwelling Catheter - Labs CBC & Chem 7: 05/01/21 04:50 05/01/21 04:50 Labs: Abnormal Lab Results - Last 24 Hours (Table) 04/30/21 04/30/21 04/30/21 Range/Units 04:45 16:34 21:26 RBC (4.40-5.60) X 10*6/uL Hgb (13.0-17.0) g/dL RDW (11.5-14.5) % Immature Gran # (0.00-0.04) X 10*3/uL Potassium (3.5-5.5) mmol/L Est GFR (CKD-EPI)AfAm (60.0-200.0) Est GFR (CKD-EPI)NonAf (60.0-200.0) Glucose (70-110) mg/dL POC Glucose (mg/dL) 171 H 117 H (75-99) mg/dL Calcium (8.7-10.3) mg/dL Procalcitonin 0.11 H (0.02-0.09) ng/mL 05/01/21 05/01/21 05/01/21 Range/Units 04:50 04:50 07:37 RBC 4.35 L (4.40-5.60) X 10*6/uL Hgb 12.9 L (13.0-17.0) g/dL RDW 15.2 H (11.5-14.5) % Immature Gran # 0.13 H (0.00-0.04) X 10*3/uL Potassium 3.3 L (3.5-5.5) mmol/L Est GFR (CKD-EPI)AfAm 55.8 L (60.0-200.0) Est GFR (CKD-EPI)NonAf 48.1 L (60.0-200.0) Glucose 127 H (70-110) mg/dL POC Glucose (mg/dL) 123 H (75-99) mg/dL Calcium 8.5 L (8.7-10.3) mg/dL Procalcitonin (0.02-0.09) ng/mL 05/01/21 Range/Units 11:40 RBC (4.40-5.60) X 10*6/uL Hgb (13.0-17.0) g/dL RDW (11.5-14.5) % Immature Gran # (0.00-0.04) X 10*3/uL Potassium (3.5-5.5) mmol/L Est GFR (CKD-EPI)AfAm (60.0-200.0) Est GFR (CKD-EPI)NonAf (60.0-200.0) Glucose (70-110) mg/dL POC Glucose (mg/dL) 135 H (75-99) mg/dL Calcium (8.7-10.3) mg/dL Procalcitonin (0.02-0.09) ng/mL
--- NOTE | 2021-05-01 14:13 | US ---
EXAMINATION TYPE: US kidneys/renal and bladder DATE OF EXAM: 05/01/2021 COMPARISON: CT CLINICAL HISTORY: ryan. Inpatient due to fall from weak knee; obese patient thus limited US as patient was unable to turn or move body. EXAM MEASUREMENTS: Right Kidney: 11.5 x 7.6 x 6.8 cm Left Kidney: 13.1 x 7.0 x 5.8 cm Post Void Residual Volume: not assessed on inpatient with indwelling bladder catheter Right Kidney: superior cortical cyst seen = 3.3 x 3.6 x 2.5cm; anechoic area to hypoechoic area seen extracapsular at inferior pole suggests sonographic"sweat sign" for renal failure. Left Kidney: limitedly seen due to reasons mentioned; mid exophytic cyst is noted = 3.3 x 3.7 x 3.4c m. Bladder: not seen, although area was scanned There is no evidence for hydronephrosis at this point in time. No nephrolithiasis is seen. No alfonzo s are identified. There is no definite solid renal mass or cortical thinning of the exam is limited due to the patient' s body habitus. IMPRESSION: Limited study with simple cortical cysts but no significant abnormality seen. No hydronephrosis or ne phrolithiasis or solid renal mass.
[2021-05-01] MEDS: LACTATED RINGERS 1,000 ML IV SCH ×2 (14:17→18:08)
--- NOTE | 2021-05-01 15:46 | P.PN ---
Subjective This is a 76-year-old patient, who follows with Dr. Barry. Chronic stable medical conditions include atrial fibrillation, CHF, diabetes, GERD, hyper tension, pacemaker, depression. Patient normally is a full assist. Patient's left knee was giving trouble and gaveway patient therefore presented to [facility]. Patient did not have any BMs for 7 days. Was given strong laxatives. Patient described as having tons of bowel movements. Subsequently patient's abdomen: Distended. NG tube was placed 2 days ago. No fever no chills. Patient had been eating prior to that. He was sent down here for further surgical evaluation. Patient has small BM yesterday. Has been passing flatus. . Abdomen remains distended. April 29: NG tube was discontinued yesterday. Today liquid diet. Has had some loose BM and flat this. Less distention of the abdomen. Still bothered by his knee. X-rays ordered. Orthopedics consulted. Surgery planning colonoscopy. Subjective 04/30/2021 This is a pleasant 76 years old male with multiple medical problems he was originally admitted to [facility] for left leg cellulitis per documentation and was transferred to this facility for recurrent abdominal distention and ileus. Today patient is fully awake and oriented, he is on liquid diet and he tolerates that well with no vomiting. No abdominal pain or tenderness about his abdomen is distended. He had 2 loose bowel movement but C. diff was tested and was negative. Surgery team on the case and the planning on colonoscopy on Monday. No GI service coverage of this facility during this week His left knee is mildly warm and tender and swollen, orthopedic consult was obtained yesterday and they don't suspect septic arthritis but rather it is osteoarthritis and they recommended outpatient follow-up Patient was still have mild leukocytosis but no fever and we will check for procalcitonin, and if is elevated significantly then we will consider further infectious workup. Also patient was suspected to have left kidney mass, patient unaware of it. Risk of malignancy explained. Also patient have many ureteric calculi. However urine culture is negative and patient is off antibiotics now. He remains on Ringer lactate at 50 mg/h, Eliquis home dose of 5 mg. Ejection fraction 55-60% mildly elevated creatinine we'll keep monitoring, patient informed 05/01/2021 Patient remains with abdominal distention, no significant nausea vomiting and he tolerates liquid diet, his culture is having bowel movement or not. His abdomen does not look tender. Also urologist evaluated the patient for possible left kidney mass at his going to review the results and the imaging with the radiologist. Creatinine improved today 1.4. No leukocytosis and WBC back to normal at 9.8 and patient is afebrile. Repeat urine analysis is still showing abnormality. However culture was already done was negative. Renal ultrasound was unremarkable for abnormality, please refer to the report. Surgery team are planning for colonoscopy on Monday Objective - Vital Signs Vital signs: Vital Signs Temp 97.6 F 05/01/21 08:00 Pulse 70 05/01/21 08:00 Resp 16 05/01/21 08:00 BP 146/80 05/01/21 08:00 Pulse Ox 95 05/01/21 08:00 Intake & Output 04/30/21 05/01/21 05/01/21 18:59 06:59 18:59 Intake Total 600 Output Total 450 300 Balance -450 300 Weight 136.985 kg Intake: Intake, IV Titration 600 Amount Lactated Ringers 1,000 ml 600 @ 50 mls/hr IV .Q20H [facility] Rx#:[id number] Output: Urine 450 300 Other: Voiding Method Indwelling Catheter Indwelling Catheter Indwelling Catheter - Exam GENERAL: The patient is alert and oriented x3, not in any acute distress. Well developed, well nourished. HEENT: Pupils are round and equally reacting to light. EOMI. No scleral icterus. No conjunctival pallor. Normocephalic, atraumatic. No pharyngeal erythema. No thyromegaly. CARDIOVASCULAR: S1 and S2 present. No murmurs, rubs, or gallops. PULMONARY: Chest is clear to auscultation, no wheezing or crackles. -ABDOMEN: Soft, nontender,distended, normoactive bowel sounds. No palpable organomegaly. Chanel catheter is in place MUSCULOSKELETAL: No joint swelling or deformity. EXTREMITIES: No cyanosis, clubbing, or pedal edema. NEUROLOGICAL: Gross neurological examination did not reveal any focal deficits. SKIN: No rashes. no petechiae. - Labs CBC & Chem 7: 05/01/21 04:50 05/01/21 04:50 Labs: Abnormal Lab Results - Last 24 Hours (Table) 04/30/21 04/30/21 04/30/21 Range/Units 04:45 16:34 21:26 RBC (4.40-5.60) X 10*6/uL Hgb (13.0-17.0) g/dL RDW (11.5-14.5) % Immature Gran # (0.00-0.04) X 10*3/uL Potassium (3.5-5.5) mmol/L Est GFR (CKD-EPI)AfAm (60.0-200.0) Est GFR (CKD-EPI)NonAf (60.0-200.0) Glucose (70-110) mg/dL POC Glucose (mg/dL) 171 H 117 H (75-99) mg/dL Calcium (8.7-10.3) mg/dL Procalcitonin 0.11 H (0.02-0.09) ng/mL 05/01/21 05/01/21 05/01/21 Range/Units 04:50 04:50 07:37 RBC 4.35 L (4.40-5.60) X 10*6/uL Hgb 12.9 L (13.0-17.0) g/dL RDW 15.2 H (11.5-14.5) % Immature Gran # 0.13 H (0.00-0.04) X 10*3/uL Potassium 3.3 L (3.5-5.5) mmol/L Est GFR (CKD-EPI)AfAm 55.8 L (60.0-200.0) Est GFR (CKD-EPI)NonAf 48.1 L (60.0-200.0) Glucose 127 H (70-110) mg/dL POC Glucose (mg/dL) 123 H (75-99) mg/dL Calcium 8.5 L (8.7-10.3) mg/dL Procalcitonin (0.02-0.09) ng/mL 05/01/21 Range/Units 11:40 RBC (4.40-5.60) X 10*6/uL Hgb (13.0-17.0) g/dL RDW (11.5-14.5) % Immature Gran # (0.00-0.04) X 10*3/uL Potassium (3.5-5.5) mmol/L Est GFR (CKD-EPI)AfAm (60.0-200.0) Est GFR (CKD-EPI)NonAf (60.0-200.0) Glucose (70-110) mg/dL POC Glucose (mg/dL) 135 H (75-99) mg/dL Calcium (8.7-10.3) mg/dL Procalcitonin (0.02-0.09) ng/mL Assessment and Plan Assessment: Ileitis with recurrent ileus and abdominal distention, With CT showing abdominal about transition change in the mid sigmoid colon Without obvious mass Left knee osteoarthritis rather than septic arthritis per orthopedic team Possible acute kidney injury, unknown baseline Possible left kidney mass, patient is aware Multiple left ureteral calculi Chronic atrial fibrillation on Eliquis at home Hypertension Mild leukocytosis Plan: This is a pleasant 89 salt male with abdominal ileus, possible ileitis, acute kidney injury and left malleolus arthritis Continue with Ringer lactate Surgery team consult are planning for bronchoscopy on Monday Consider urology evaluation Monitor creatinine Labs and medication were reviewed.. Continue same treatment. Continue with symptomatic treatment. Resume home medication. Monitor lytes and vitals. DVT and GI prophylaxis. Further recommendationsas per clinical course of the patient DVT prophylaxis: Eliquis GI Prophylaxis: Ppi PT/OT: Pending Prognosis is guarded
[2021-05-01 16:52] LABS: Glucose,Whole Blood 112 mg/dL (75-99)
[2021-05-01] MEDS: TAMSULOSIN 0.4 MG CAP.ER.24H PO SCH (18:02)
[2021-05-01] MEDS: SIMETHICONE 40 MG/0.6 ML DROPS 2,000 MG/30 ML BOTTLE PO SCH ×2 (18:02→20:48)
[2021-05-01 20:20] LABS: Glucose,Whole Blood 105 mg/dL (75-99)
[2021-05-01] MEDS: ATORVASTATIN 20 MG TAB PO SCH (20:45)
[2021-05-01] MEDS: HYDROcodone/APAP 10-325MG 1 EACH TAB PO PRN (22:18)
[2021-05-02] MEDS: METOCLOPRAMIDE 5 MG/ML 2 ML VIAL IVP SCH ×5 (00:08→23:35)
[2021-05-02 07:00] LABS: Glucose,Whole Blood 109 mg/dL (75-99)
[2021-05-02] MEDS ORDERED: PEG 3350-NA SULF,BICARB,CL/KCL 4,000 ML BOTTLE PO ONE (09:00)
[2021-05-02 09:21] LABS: Basophils # (A) 0.08 X 10*3/uL (0.00-0.10); Eosinophils # (A) 0.19 X 10*3/uL (0.04-0.35); Eosinophils % (A) 2.3 %; HCT 40.9 % (39.6-50.0); HGB 12.9 g/dL (13.0-17.0); Lymphocytes # (A) 1.76 X 10*3/uL (0.90-5.00); Lymphocytes % (A) 21.6 %; MCH 29.4 pg (27.0-32.0); MCHC 31.5 g/dL (32.0-37.0); MCV 93.2 fL (80.0-97.0); Mean Platelet Volume 10.5 fL (9.5-12.2); Monocytes # (A) 0.67 X 10*3/uL (0.20-1.00); Monocytes % (A) 8.2 %; Neutrophils # (A) 5.32 X 10*3/uL (1.80-7.70); Neutrophils % (A) 65.3 %; Platelet Count 222 X 10*3/uL (140-440); RBC 4.39 X 10*6/uL (4.40-5.60); RDW 15.4 % (11.5-14.5); WBC 8.15 X 10*3/uL (4.50-10.00)
--- NOTE | 2021-05-02 09:38 | P.PN ---
Subjective Patient is seen in follow-up for acute kidney injury. Renal function has been improving with creatinine 1.4 yesterday. No pain. States stool is watery. No chest pain or shortness of breath. Vital signs are stable. General: The patient appeared well nourished and normally developed. HEENT: Head exam is unremarkable. LUNGS: Breath sounds decreased. HEART: Rate and Rhythm are regular. ABDOMEN: Soft, no distention. EXTREMITITES: No edema. Objective - Vital Signs Vital signs: Vital Signs Temp 97.6 F 05/02/21 08:00 Pulse 71 05/02/21 08:00 Resp 16 05/02/21 08:00 BP 153/85 05/02/21 08:00 Pulse Ox 95 05/02/21 08:00 Intake & Output 05/01/21 05/02/21 05/02/21 18:59 06:59 18:59 Output Total 1200 300 Balance -1200 -300 Output: Urine 1200 300 Uretheral (Chanel) 600 Other: Voiding Method Indwelling Catheter Indwelling Catheter # Bowel Movements 1 - Labs CBC & Chem 7: 05/02/21 05:10 05/01/21 04:50 Labs: Abnormal Lab Results - Last 24 Hours (Table) 05/01/21 05/01/21 05/01/21 Range/Units 11:40 13:05 16:51 RBC (4.40-5.60) X 10*6/uL Hgb (13.0-17.0) g/dL MCHC (32.0-37.0) g/dL RDW (11.5-14.5) % Immature Gran # (0.00-0.04) X 10*3/uL POC Glucose (mg/dL) 135 H 112 H (75-99) mg/dL Urine pH 8.5 H (5.0-8.0) Urine Protein 1+ H (Negative) Urine Ketones Trace H (Negative) Urine Blood Large H (Negative) Ur Leukocyte Esterase Large H (Negative) Urine RBC 22 H (0-5) /hpf Urine WBC 168 H (0-5) /hpf Triple Phos Crystals Few H (None) /hpf Urine Bacteria Moderate H (None) /hpf Urine Mucus Occasional H (None) /hpf 05/01/21 05/02/21 05/02/21 Range/Units 20:15 05:10 06:59 RBC 4.39 L (4.40-5.60) X 10*6/uL Hgb 12.9 L (13.0-17.0) g/dL MCHC 31.5 L (32.0-37.0) g/dL RDW 15.4 H (11.5-14.5) % Immature Gran # 0.13 H (0.00-0.04) X 10*3/uL POC Glucose (mg/dL) 105 H 109 H (75-99) mg/dL Urine pH (5.0-8.0) Urine Protein (Negative) Urine Ketones (Negative) Urine Blood (Negative) Ur Leukocyte Esterase (Negative) Urine RBC (0-5) /hpf Urine WBC (0-5) /hpf Triple Phos Crystals (None) /hpf Urine Bacteria (None) /hpf Urine Mucus (None) /hpf Assessment and Plan Plan: Assessment: 1. Acute kidney injury mostly prerenal secondary to poor intake and diarrhea improved with IV hydration. Creatinine peaked at 1.76 this admission and was down to 1.4 yesterday. Unknown baseline renal function. No hydronephrosis noted on kidney ultrasound. 2. Hypokalemia from poor intake. Replaced. 3. Possible chronic kidney disease. 4. Atrophic left kidney with possible mass. Urology following. 5. A. fib. Rate controlled. Cardiology following. 6. Benign hypertension. Stable. 7. Abdominal pain. Narrowing at midsigmoid colon present on CAT scan per surgery. Scheduled for colonoscopy Monday. Plan: Maintain IV hydration. Follow-up morning labs. Avoid nephrotoxins. Continue to monitor renal function and urine output.
[2021-05-02] MEDS: METOPROLOL TARTRATE 50 MG TAB PO SCH ×2 (09:42→21:43)
[2021-05-02] MEDS: DILTIAZEM CD 120 MG CAP.ER.24H PO SCH (09:42)
[2021-05-02] MEDS: MULTIVITAMINS, THERA 1 EACH TAB PO SCH (09:42)
[2021-05-02] MEDS: MAGNESIUM OXIDE 400 MG TAB PO SCH ×3 (09:42→21:43)
[2021-05-02] MEDS: PANTOPRAZOLE 40 MG TABLET PO SCH (09:42)
[2021-05-02] MEDS: SIMETHICONE 40 MG/0.6 ML DROPS 2,000 MG/30 ML BOTTLE PO SCH ×4 (09:43→21:44)
[2021-05-02] MEDS: LACTATED RINGERS 1,000 ML IV SCH ×2 (09:43→15:38)
[2021-05-02] MEDS: PYRIDOXINE 50 MG TAB PO SCH (09:43)
[2021-05-02 11:46] LABS: Glucose,Whole Blood 117 mg/dL (75-99)
--- NOTE | 2021-05-02 15:06 | P.PN ---
Subjective Progress Note Date: 05/02/21 CHIEF COMPLAINT: Sigmoid colon obstruction HISTORY OF PRESENT ILLNESS: The patient is a 76-year-old male with abdominal distention status post computed tomography scan demonstrating sigmoid narrowing. He is tolerating GoLYTELY prep. Reports some improvement of his abdominal distention. ROS: No fevers or chills. No new chest pain. No productive sputum PHYSICAL EXAM: VITAL SIGNS: Reviewed CONSTITUTIONAL: Well developed and in no acute distress. EYES: Conjuctivae without sclera icterus. Extraocular movements grossly intact. HEAD, EARS, NOSE, THROAT: Moist buccal mucosa. Head is atraumatic, normocephalic. No nasal drainage. RESPIRATORY: Non-labored respirations and equal bilateral excursions. CARDIOVASCULAR: Palpable 2+ radial pulses. ABDOMEN: Protuberant with distention.No peritonitis. MUSCULOSKELETAL: No gross deformity of the lower extremities noted. No clubbing. No cyanosis. SKIN: Good skin turgor. Well perfused. NEUROLOGIC: Cranial nerves II through XII grossly intact. No focal or lateralizing signs. PSYCH: Alert to person. CLINICAL LABS: Reviewed. WBC normal. ASSESSMENT: 1. Sigmoid colon partial obstruction 2. Morbid obesity, BMI 38.8 PLAN: 1. Continue GoLYTELY prep for colonoscopy tomorrow Objective - Vital Signs Vital signs: Vital Signs Temp 97.8 F 05/02/21 14:00 Pulse 74 05/02/21 14:00 Resp 16 05/02/21 14:00 BP 147/85 05/02/21 14:00 Pulse Ox 97 05/02/21 14:00 Intake & Output 05/01/21 05/02/21 05/02/21 18:59 06:59 18:59 Output Total 1200 300 Balance -1200 -300 Output: Urine 1200 300 Uretheral (Chanel) 600 Other: Voiding Method Indwelling Catheter Indwelling Catheter Indwelling Catheter # Bowel Movements 1 - Labs CBC & Chem 7: 05/02/21 05:10 05/01/21 04:50 Labs: Abnormal Lab Results - Last 24 Hours (Table) 05/01/21 05/01/21 05/02/21 Range/Units 16:51 20:15 05:10 RBC 4.39 L (4.40-5.60) X 10*6/uL Hgb 12.9 L (13.0-17.0) g/dL MCHC 31.5 L (32.0-37.0) g/dL RDW 15.4 H (11.5-14.5) % Immature Gran # 0.13 H (0.00-0.04) X 10*3/uL POC Glucose (mg/dL) 112 H 105 H (75-99) mg/dL 05/02/21 05/02/21 Range/Units 06:59 11:45 RBC (4.40-5.60) X 10*6/uL Hgb (13.0-17.0) g/dL MCHC (32.0-37.0) g/dL RDW (11.5-14.5) % Immature Gran # (0.00-0.04) X 10*3/uL POC Glucose (mg/dL) 109 H 117 H (75-99) mg/dL
[2021-05-02 16:37] LABS: Glucose,Whole Blood 103 mg/dL (75-99)
--- NOTE | 2021-05-02 17:33 | P.PN ---
Subjective This is a 76-year-old patient, who follows with Dr. Barry. Chronic stable medical conditions include atrial fibrillation, CHF, diabetes, GERD, hyper tension, pacemaker, depression. Patient normally is a full assist. Patient's left knee was giving trouble and gaveway patient therefore presented to [facility]. Patient did not have any BMs for 7 days. Was given strong laxatives. Patient described as having tons of bowel movements. Subsequently patient's abdomen: Distended. NG tube was placed 2 days ago. No fever no chills. Patient had been eating prior to that. He was sent down here for further surgical evaluation. Patient has small BM yesterday. Has been passing flatus. . Abdomen remains distended. April 29: NG tube was discontinued yesterday. Today liquid diet. Has had some loose BM and flat this. Less distention of the abdomen. Still bothered by his knee. X-rays ordered. Orthopedics consulted. Surgery planning colonoscopy. Subjective 04/30/2021 This is a pleasant 76 years old male with multiple medical problems he was originally admitted to [facility] for left leg cellulitis per documentation and was transferred to this facility for recurrent abdominal distention and ileus. Today patient is fully awake and oriented, he is on liquid diet and he tolerates that well with no vomiting. No abdominal pain or tenderness about his abdomen is distended. He had 2 loose bowel movement but C. diff was tested and was negative. Surgery team on the case and the planning on colonoscopy on Monday. No GI service coverage of this facility during this week His left knee is mildly warm and tender and swollen, orthopedic consult was obtained yesterday and they don't suspect septic arthritis but rather it is osteoarthritis and they recommended outpatient follow-up Patient was still have mild leukocytosis but no fever and we will check for procalcitonin, and if is elevated significantly then we will consider further infectious workup. Also patient was suspected to have left kidney mass, patient unaware of it. Risk of malignancy explained. Also patient have many ureteric calculi. However urine culture is negative and patient is off antibiotics now. He remains on Ringer lactate at 50 mg/h, Eliquis home dose of 5 mg. Ejection fraction 55-60% mildly elevated creatinine we'll keep monitoring, patient informed 05/01/2021 Patient remains with abdominal distention, no significant nausea vomiting and he tolerates liquid diet, his culture is having bowel movement or not. His abdomen does not look tender. Also urologist evaluated the patient for possible left kidney mass at his going to review the results and the imaging with the radiologist. Creatinine improved today 1.4. No leukocytosis and WBC back to normal at 9.8 and patient is afebrile. Repeat urine analysis is still showing abnormality. However culture was already done was negative. Renal ultrasound was unremarkable for abnormality, please refer to the report. Surgery team are planning for colonoscopy on Monday05/02/2021 Patient still with significant abdominal distention without clear etiology. Patient is planned to go for colonoscopy tomorrow and he is kept nothing by mouth. He has no abdominal pain, no vomiting and he has some leakage bowel movement or stool. Of note his CAT scan showed abrupt transition and sigmoid colon No evidence of infection, no leukocytosis or fever. And potential calcitonin is negative and culture is negative. Also patient does not look septic or ill. He has suspected left kidney mass and urologist already saw the patient He has history of A. fib on liquids. Objective - Vital Signs Vital signs: Vital Signs Temp 97.6 F 05/02/21 08:00 Pulse 71 05/02/21 08:00 Resp 16 05/02/21 08:00 BP 153/85 05/02/21 08:00 Pulse Ox 95 05/02/21 08:00 Intake & Output 05/01/21 05/02/21 05/02/21 18:59 06:59 18:59 Output Total 1200 300 Balance -1200 -300 Output: Urine 1200 300 Uretheral (Chanel) 600 Other: Voiding Method Indwelling Catheter Indwelling Catheter Indwelling Catheter # Bowel Movements 1 - Exam GENERAL: The patient is alert and oriented x3, not in any acute distress. Well developed, well nourished. HEENT: Pupils are round and equally reacting to light. EOMI. No scleral icterus. No conjunctival pallor. Normocephalic, atraumatic. No pharyngeal erythema. No thyromegaly. CARDIOVASCULAR: S1 and S2 present. No murmurs, rubs, or gallops. PULMONARY: Chest is clear to auscultation, no wheezing or crackles. -ABDOMEN: Soft, nontender,distended, normoactive bowel sounds. No palpable organomegaly. Chanel catheter is in place MUSCULOSKELETAL: No joint swelling or deformity. EXTREMITIES: No cyanosis, clubbing, or pedal edema. NEUROLOGICAL: Gross neurological examination did not reveal any focal deficits. SKIN: No rashes. no petechiae. - Labs CBC & Chem 7: 05/02/21 05:10 05/01/21 04:50 Labs: Abnormal Lab Results - Last 24 Hours (Table) 05/01/21 05/01/21 05/01/21 Range/Units 11:40 13:05 16:51 RBC (4.40-5.60) X 10*6/uL Hgb (13.0-17.0) g/dL MCHC (32.0-37.0) g/dL RDW (11.5-14.5) % Immature Gran # (0.00-0.04) X 10*3/uL POC Glucose (mg/dL) 135 H 112 H (75-99) mg/dL Urine pH 8.5 H (5.0-8.0) Urine Protein 1+ H (Negative) Urine Ketones Trace H (Negative) Urine Blood Large H (Negative) Ur Leukocyte Esterase Large H (Negative) Urine RBC 22 H (0-5) /hpf Urine WBC 168 H (0-5) /hpf Triple Phos Crystals Few H (None) /hpf Urine Bacteria Moderate H (None) /hpf Urine Mucus Occasional H (None) /hpf 05/01/21 05/02/21 05/02/21 Range/Units 20:15 05:10 06:59 RBC 4.39 L (4.40-5.60) X 10*6/uL Hgb 12.9 L (13.0-17.0) g/dL MCHC 31.5 L (32.0-37.0) g/dL RDW 15.4 H (11.5-14.5) % Immature Gran # 0.13 H (0.00-0.04) X 10*3/uL POC Glucose (mg/dL) 105 H 109 H (75-99) mg/dL Urine pH (5.0-8.0) Urine Protein (Negative) Urine Ketones (Negative) Urine Blood (Negative) Ur Leukocyte Esterase (Negative) Urine RBC (0-5) /hpf Urine WBC (0-5) /hpf Triple Phos Crystals (None) /hpf Urine Bacteria (None) /hpf Urine Mucus (None) /hpf Assessment and Plan Assessment: Ileitis with recurrent ileus and abdominal distention, With CT showing abdominal about transition change in the mid sigmoid colon Without obvious mass Left knee osteoarthritis rather than septic arthritis per orthopedic team Possible acute kidney injury, unknown baseline Possible left kidney mass, patient is aware Multiple left ureteral calculi Chronic atrial fibrillation on Eliquis at home Hypertension Mild leukocytosis Plan: This is a pleasant 89 salt male with abdominal ileus, possible ileitis, acute kidney injury and left malleolus arthritis Continue gentle hydration. Keep the patient nothing by mouth. Surgery team consult are planning for colonoscopy on Monday tomorrow Urologist was consulted for his kidney mass Monitor creatinine Labs and medication were reviewed.. Continue same treatment. Continue with symptomatic treatment. Resume home medication. Monitor lytes and vitals. DVT and GI prophylaxis. Further recommendations as per clinical course of the patient DVT prophylaxis: Eliquis GI Prophylaxis: Ppi PT/OT: Pending Prognosis is guarded
[2021-05-02] MEDS: TAMSULOSIN 0.4 MG CAP.ER.24H PO SCH (17:36)
[2021-05-02] MEDS: HYDROcodone/APAP 10-325MG 1 EACH TAB PO PRN ×2 (19:27→23:35)
[2021-05-02 20:13] LABS: Glucose,Whole Blood 91 mg/dL (75-99)
[2021-05-02] MEDS: ATORVASTATIN 20 MG TAB PO SCH (21:43)
[2021-05-02 23:50] LABS: African American GFR (CKD) 55.8 (60.0-200.0); BUN/Creat Ratio 16.36 Ratio (12.00-20.00); Blood Urea Nitrogen 22.9 mg/dL (9.0-27.0); Calcium 8.7 mg/dL (8.7-10.3); Magnesium 2.3 mg/dL (1.5-2.4); Non-African American GFR(CKD) 48.1 (60.0-200.0); Potassium 3.7 mmol/L (3.5-5.5)
[2021-05-03 04:33] LABS: Basophils # (A) 0.1 k/uL (0-0.2); Basophils % (A) 1 %; Eosinophils # (A) 0.2 k/uL (0-0.7); Eosinophils % (A) 3 %; HCT 42.3 % (39.0-53.0); HGB 13.8 gm/dL (13.0-17.5); Lymphocytes # (A) 1.6 k/uL (1.0-4.8); Lymphocytes % (A) 19 %; MCH 30.5 pg (25.0-35.0); MCHC 32.5 g/dL (31.0-37.0); MCV 93.7 fL (80.0-100.0); Mean Platelet Volume 7.9; Monocytes # (A) 0.5 k/uL (0-1.0); Monocytes % (A) 6 %; Neutrophils # (A) 6.2 k/uL (1.3-7.7); Neutrophils % (A) 71 %; Platelet Count 210 k/uL (150-450); RBC 4.51 m/uL (4.30-5.90); RDW 14.7 % (11.5-15.5); WBC 8.7 k/uL (3.8-10.6)
[2021-05-03 04:46] LABS: ALT 45 U/L (4-49); AST 45 U/L (17-59); African American GFR (CKD) 58 (>60 ml/min/1.73 sqM); Albumin 2.9 g/dL (3.5-5.0); Albumin/Globulin Ratio 0.8; Alkaline Phosphatase 85 U/L (38-126); Anion Gap 6 mmol/L; Blood Urea Nitrogen 20 mg/dL (9-20); Calcium 8.8 mg/dL (8.4-10.2); Carbon Dioxide 26 mmol/L (22-30); Chloride 113 mmol/L (98-107); Globulin 3.6 g/dL; Glucose 98 mg/dL (74-99); Non-African American GFR(CKD) 50 (>60 ml/min/1.73 sqM); Potassium 3.5 mmol/L (3.5-5.1); Sodium 145 mmol/L (137-145); Total Bilirubin 0.9 mg/dL (0.2-1.3); Total Protein 6.5 g/dL (6.3-8.2)
[2021-05-03] MEDS: METOCLOPRAMIDE 5 MG/ML 2 ML VIAL IVP SCH ×3 (06:05→17:16)
[2021-05-03 07:11] LABS: Glucose,Whole Blood 95 mg/dL (75-99)
[2021-05-03] MEDS: MULTIVITAMINS, THERA 1 EACH TAB PO SCH (08:18)
[2021-05-03] MEDS: METOPROLOL TARTRATE 50 MG TAB PO SCH ×2 (08:18→21:12)
[2021-05-03] MEDS: MAGNESIUM OXIDE 400 MG TAB PO SCH ×3 (08:18→21:12)
[2021-05-03] MEDS: PYRIDOXINE 50 MG TAB PO SCH (08:18)
[2021-05-03] MEDS: DILTIAZEM CD 120 MG CAP.ER.24H PO SCH (08:18)
[2021-05-03] MEDS: PANTOPRAZOLE 40 MG TABLET PO SCH (08:18)
[2021-05-03] MEDS: SIMETHICONE 40 MG/0.6 ML DROPS 2,000 MG/30 ML BOTTLE PO SCH ×5 (08:20→21:16)
[2021-05-03] MEDS ORDERED: POTASSIUM CHLORIDE ER 20 MEQ TAB.ER PO STA (09:25)
--- NOTE | 2021-05-03 09:25 | P.PN ---
Subjective Patient is seen in follow-up for acute kidney injury. Renal function stable. No pain. No chest pain or shortness of breath. Scheduled for colonoscopy today. Vital signs are stable. General: The patient appeared well nourished and normally developed. HEENT: Head exam is unremarkable. LUNGS: Breath sounds decreased. HEART: Rate and Rhythm are regular. ABDOMEN: Soft, no distention. EXTREMITITES: No edema. Objective - Vital Signs Vital signs: Vital Signs Temp 97.7 F 05/03/21 00:43 Pulse 81 05/03/21 00:43 Resp 15 05/03/21 00:43 BP 114/75 05/03/21 00:43 Pulse Ox 95 05/03/21 00:43 Intake & Output 05/02/21 05/03/21 05/03/21 18:59 06:59 18:59 Output Total 300 400 Balance -300 -400 Output: Urine 300 400 Other: Voiding Method Indwelling Catheter # Bowel Movements 4 1 - Labs CBC & Chem 7: 05/03/21 03:55 05/03/21 03:55 Labs: Abnormal Lab Results - Last 24 Hours (Table) 05/02/21 05/02/21 05/02/21 Range/Units 05:10 11:45 16:36 Chloride (98-107) mmol/L Creatinine (0.66-1.25) mg/dL Est GFR (CKD-EPI)AfAm 55.8 L (60.0-200.0) Est GFR (CKD-EPI)NonAf 48.1 L (60.0-200.0) Glucose 116 H (70-110) mg/dL POC Glucose (mg/dL) 117 H 103 H (75-99) mg/dL Albumin (3.5-5.0) g/dL 05/03/21 Range/Units 03:55 Chloride 113 H (98-107) mmol/L Creatinine 1.36 H (0.66-1.25) mg/dL Est GFR (CKD-EPI)AfAm (60.0-200.0) Est GFR (CKD-EPI)NonAf (60.0-200.0) Glucose (70-110) mg/dL POC Glucose (mg/dL) (75-99) mg/dL Albumin 2.9 L (3.5-5.0) g/dL Assessment and Plan Plan: Assessment: 1. Acute kidney injury mostly prerenal secondary to poor intake and diarrhea improved with IV hydration. Creatinine peaked at 1.76 this admission and is 1.36 today. Unknown baseline renal function. No hydronephrosis noted on kidney ultrasound. 2. Hypokalemia from poor intake. 3. Possible chronic kidney disease. 4. Atrophic left kidney with possible mass. Urology following. 5. A. fib. Rate controlled. Cardiology following. 6. Benign hypertension. Stable. 7. Abdominal pain. Narrowing at midsigmoid colon present on CAT scan per surgery. Scheduled for colonoscopy today. Plan: Maintain IV hydration. Replace potassium. Avoid nephrotoxins. Continue to monitor renal function and urine output.
[2021-05-03 11:36] LABS: Glucose,Whole Blood 101 mg/dL (75-99)
[2021-05-03] MEDS ORDERED: LIDOCAINE 1% INJ 10MG/ML (20 ML MDV) ONE (12:26)
[2021-05-03] MEDS ORDERED: PROPOFOL 10 MG/ML 20 ML VIAL IV ONE (12:26)
[2021-05-03] MEDS ORDERED: IV FLUID CONTINUATION 1,000 ML IV ONE ×2 (12:27)
--- NOTE | 2021-05-03 12:44 | P.OP ---
Date of Procedure: 05/03/21 Preoperative Diagnosis: Ileus, possible sigmoid colon obstruction Postoperative Diagnosis: Ileus Poor colon prep Hemorrhoids Diverticulosis Procedure(s) Performed: Colonoscopy Anesthesia: MAC Surgeon: Reynaldo Escobedo Pathology: none sent Condition: stable Disposition: PACU Description of Procedure: The patient's placed on the endoscopy table in the lateral position. He received IV sedation. Digital rectal exam was performed. This revealed external hemorrhoids. The flexible colonoscope was then placed patient anus passed with colon. Scope could not passed in the right colon secondary to poor colon prep. His large amount liquid stool the colon. Scope was withdrawn. In the transverse colon was a few scattered diverticula. The scope was brought back the descending; there is extensive diverticular changes seen left and sigmoid colon. The scope was brought back the rectum and this appeared normal. Scope withdrawn for patient. There is no evidence of obstruction sigmoid colon.
--- NOTE | 2021-05-03 15:47 | P.PN ---
Subjective Progress Note Date: 05/03/21 The patient has an atrophic left kidney. There is a mass that appears to be attached by a very thin isthmus between the kidney and the spleen. I reviewed this with radiology. It has a very benign appearance. The Hounsfield units really around 20. This is probably a proteinaceous cyst. The isthmus because as the kidney and contracted it pulled on the cyst. The plan would be to follow this. I do not think anything interventional is required at this point in time. Objective - Vital Signs Vital signs: Vital Signs Temp 97.9 F 05/03/21 13:22 Pulse 86 05/03/21 13:22 Resp 18 05/03/21 13:22 BP 125/64 05/03/21 13:22 Pulse Ox 96 05/03/21 13:22 Intake & Output 05/02/21 05/03/21 05/03/21 18:59 06:59 18:59 Intake Total 100 Output Total 300 400 Balance -300 -400 100 Weight 136.985 kg Intake: IV 100 Output: Urine 300 400 Other: Voiding Method Indwelling Catheter Indwelling Catheter # Bowel Movements 4 1 - Labs CBC & Chem 7: 05/03/21 03:55 05/03/21 03:55 Labs: Abnormal Lab Results - Last 24 Hours (Table) 05/02/21 05/02/21 05/03/21 Range/Units 05:10 16:36 03:55 Chloride 113 H (98-107) mmol/L Creatinine 1.36 H (0.66-1.25) mg/dL Est GFR (CKD-EPI)AfAm 55.8 L (60.0-200.0) Est GFR (CKD-EPI)NonAf 48.1 L (60.0-200.0) Glucose 116 H (70-110) mg/dL POC Glucose (mg/dL) 103 H (75-99) mg/dL Albumin 2.9 L (3.5-5.0) g/dL 05/03/21 Range/Units 11:33 Chloride (98-107) mmol/L Creatinine (0.66-1.25) mg/dL Est GFR (CKD-EPI)AfAm (60.0-200.0) Est GFR (CKD-EPI)NonAf (60.0-200.0) Glucose (70-110) mg/dL POC Glucose (mg/dL) 101 H (75-99) mg/dL Albumin (3.5-5.0) g/dL
[2021-05-03 16:58] LABS: Glucose,Whole Blood 88 mg/dL (75-99)
[2021-05-03] MEDS: TAMSULOSIN 0.4 MG CAP.ER.24H PO SCH (17:16)
[2021-05-03] MEDS: ATORVASTATIN 20 MG TAB PO SCH (21:12)
[2021-05-03] MEDS: HYDROcodone/APAP 10-325MG 1 EACH TAB PO PRN (21:13)
[2021-05-03 21:35] LABS: Glucose,Whole Blood 81 mg/dL (75-99)
--- NOTE | 2021-05-03 23:43 | P.PN ---
Progress Note - Text Progress Note Date: 05/03/21 Chief Complaint: Abdominal distention This is a 76-year-old patient, who follows with Dr. Barry. Chronic stable medical conditions include atrial fibrillation, CHF, diabetes, GERD, hypertension, pacemaker, depression. Patient normally is a full assist. Patient's left knee was giving trouble and gaveway patient therefore presented to [facility]. Patient did not have any BMs for 7 days. Was given strong laxatives. Patient described as having tons of bowel movements. Subsequently patient's abdomen: Distended. NG tube was placed 2 days ago. No fever no chills. Patient had been eating prior to that. He was sent down here for further surgical evaluation. Patient has small BM yesterday. Has been passing flatus. . Abdomen remains distended. April 29: NG tube was discontinued yesterday. Today liquid diet. Has had some loose BM and flat this. Less distention of the abdomen. Still bothered by his knee. X-rays ordered. Orthopedics consulted. Surgery planning colonoscopy. May 03: Patient being followed by urology. Atrophic left kidney. Mass appears to be attached by a very thin is worst between the kidney and the spleen. [place] to be a proteinaceous cyst. He will follow with urology. Patient underwent colonoscopy today by Dr. Escobedo.: External hemorrhoids. Because of poor colon prep could not pass in the right colon. Large amount of liquid stool in the colon. Tired diverticula noted on the left side. No obstructive lesion noted.. Review of systems: Was done for constitutional, cardiovascular, GI, pulmonary. relevant finding as above Active Medications Hydrocodone Bitart/Acetaminophen (Hydrocodone/Apap 10-325mg 1 Each Tab) 1 each PO QID PRN PRN Reason: Pain Last Admin: 05/03/21 21:13 Dose: 1 each Documented by: Atorvastatin Calcium (Atorvastatin 20 Mg Tab) 20 mg PO HS [facility] Last Admin: 05/03/21 21:12 Dose: 20 mg Documented by: Diltiazem HCl (Diltiazem Cd 120 Mg Cap.Er.24h) 120 mg PO DAILY [facility] Last Admin: 05/03/21 08:18 Dose: 120 mg Documented by: Lactated Ringer's (Lactated Ringers) 1,000 mls @ 50 mls/hr IV .Q20H [place] Last Admin: 05/02/21 09:43 Dose: Not Given Documented by: Lactated Ringer's (Lactated Ringers) 1,000 mls @ 20 mls/hr IV .Q24H [facility] Last Admin: 05/02/21 15:38 Dose: 20 mls/hr Documented by: Magnesium Oxide (Magnesium Oxide 400 Mg Tab) 400 mg PO TID [facility] Last Admin: 05/03/21 21:12 Dose: 400 mg Documented by: Metoclopramide HCl (Metoclopramide 5 Mg/Ml 2 Ml Vial) 10 mg IVP Q6HR [facility] Last Admin: 05/03/21 17:16 Dose: 10 mg Documented by: Metoprolol Tartrate (Metoprolol Tartrate 50 Mg Tab) 100 mg PO BID [facility] Last Admin: 05/03/21 21:12 Dose: 100 mg Documented by: Multivitamins (Multivitamins, Thera 1 Each Tab) 1 each PO DAILY [facility] Last Admin: 05/03/21 08:18 Dose: Not Given Documented by: Naloxone HCl (Naloxone 0.4 Mg/Ml 1 Ml Vial) 0.2 mg IV Q2M PRN PRN Reason: Opioid Reversal Ondansetron HCl (Ondansetron 4 Mg/2 Ml Vial) 4 mg IVP Q8HR PRN PRN Reason: Nausea And Vomiting Pantoprazole Sodium (Pantoprazole 40 Mg Tablet) 40 mg PO DAILY@0730 [facility] Last Admin: 05/03/21 08:18 Dose: 40 mg Documented by: Pyridoxine HCl (Pyridoxine 50 Mg Tab) 50 mg PO DAILY [facility] Last Admin: 05/03/21 08:18 Dose: Not Given Documented by: Simethicone (Simethicone 40 Mg/0.6 Ml Drops 2,000 Mg/30 Ml Bottle) 100 mg PO [facility] Last Admin: 05/03/21 21:16 Dose: Not Given Documented by: Tamsulosin HCl (Tamsulosin 0.4 Mg Cap.Er.24h) 0.4 mg PO PC-SUPPER [facility] Last Admin: 05/03/21 17:16 Dose: 0.4 mg Documented by: Past medical history to include: Atrial fibrillation, CHF, diabetes, GERD, hypertension, pacemaker, depression Social history: [facility] Has full-time support. Patient is a full assist to a wheelchair. Can pivot. With help Family history: Father of a heart attack age 58 Physical examination: VITAL SIGNS: 98.4, 91, 16, 153/81, 97% room air GENERAL: Reclining in bed, awake, not in distress EYES: Pupils equal. Conjunctiva normal. HEENT: External appearance of nose and ears normal, oral cavity normal. NECK: JVD unable to assess; masses not palpable. HEART: Heart sounds distant; no edema. LUNGS: Respiratory rate normal; distant breath sounds. ABDOMEN: Soft, some distention, bowel sounds present nontender, liver spleen not palpable, no masses palpable. PSYCH: Alert and oriented x3; mood and affect normal. MUSCULOSKELETAL:No Clubbing/cyanosis;muscles-grossly intact. Evidence of OA NEUROLOGICAL: Cranial nerves grossly intact; no facial asymmetry, power and sensation grossly intact. INVESTIGATIONS, reviewed in the clinical context: May 03: White count 8.7 hemoglobin 13.8 potassium 3.5 creatinine 1.36 Colonoscopy: Left-sided diverticula. No obstruction April 29: White count 13.4 hemoglobin 13.6 potassium 3 BUN 32 creatinine 1.66 2-D echocardiogram: EF 55-60% X-ray left knee: Osteoarthritis. Joint effusion. Soft tissue swelling. Osteopenia. White count 12.8 hemoglobin 14.8 platelets 280 sodium 145 potassium 3 BUN 32 creatinine 1.46 UA positive for leukoesterase, WBC, RBC Coronavirus [PCR]: Not detected Computed tomography scan of the abdomen pelvis: Overall nonspecific pattern favoring nonobstructive bowel gas pattern. Abrupt transition change mid sigmoid colon without obvious mass. Chronic changes to the left kidney. Small calculi along the course of left ureter. Nondilated. 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 Assessment and plan: -Ileus following receiving laxatives. NG tube discontinued. 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 Morales -Left atrophic kidney -Primary osteoarthritis multiple joints bilateral Pain medicine when necessary -Acute on chronic pain in the left knee, with flareup of osteoarthritis and joint effusion Patient seen by Dr. Nesbitt, outpatient follow-up -Persistent atrial fibrillation, rate controlled Lopressor 100 mg twice a day. Eliquis. Telemetry. Cardizem ER 100 mg a day -BPH Flomax 0.4 mg a day -Essential hypertension Cozaar, Cardizem extended release, Lopressor -GERD Omeprazole 20 mg twice a day -Colonic diverticulosis, asymptomatic Diet advanced. PTOT. We'll go to inpatient rehab. Discussed with patient.
[2021-05-04] MEDS: METOCLOPRAMIDE 5 MG/ML 2 ML VIAL IVP SCH ×4 (01:03→17:44)
[2021-05-04] MEDS: LACTATED RINGERS 1,000 ML IV SCH ×5 (01:25→17:32)
[2021-05-04 07:15] LABS: Glucose,Whole Blood 85 mg/dL (75-99)
[2021-05-04] MEDS: PANTOPRAZOLE 40 MG TABLET PO SCH (07:44)
[2021-05-04] MEDS: SIMETHICONE 40 MG/0.6 ML DROPS 2,000 MG/30 ML BOTTLE PO SCH ×3 (07:44→17:44)
[2021-05-04 09:19] LABS: Anion Gap 13.1 mmol/L (10.00-18.00); Blood Urea Nitrogen 16.9 mg/dL (9.0-27.0); Calcium 8.5 mg/dL (8.7-10.3); Carbon Dioxide 20.9 mmol/L (20.0-27.5); Non-African American GFR(CKD) 52.6 (60.0-200.0); Potassium 3.7 mmol/L (3.5-5.5)
[2021-05-04] MEDS: MULTIVITAMINS, THERA 1 EACH TAB PO SCH (09:36)
[2021-05-04] MEDS: DILTIAZEM CD 120 MG CAP.ER.24H PO SCH (09:36)
[2021-05-04] MEDS: METOPROLOL TARTRATE 50 MG TAB PO SCH (09:36)
[2021-05-04] MEDS: MAGNESIUM OXIDE 400 MG TAB PO SCH ×2 (09:36→17:44)
[2021-05-04] MEDS: PYRIDOXINE 50 MG TAB PO SCH (09:37)
--- NOTE | 2021-05-04 10:58 | P.PN ---
Subjective Patient is seen in follow-up for acute kidney injury. Renal function stable. No pain. No chest pain or shortness of breath. No vomiting or diarrhea. Vital signs are stable. General: The patient appeared well nourished and normally developed. HEENT: Head exam is unremarkable. LUNGS: Breath sounds decreased. HEART: Rate and Rhythm are regular. ABDOMEN: Soft, no distention. EXTREMITITES: No edema. Objective - Vital Signs Vital signs: Vital Signs Temp 97.8 F 05/04/21 08:01 Pulse 94 05/04/21 08:01 Resp 18 05/04/21 08:01 BP 144/82 05/04/21 08:01 Pulse Ox 96 05/04/21 08:01 Intake & Output 05/03/21 05/04/21 05/04/21 18:59 06:59 18:59 Intake Total 700 1080 Output Total 725 Balance 700 355 Weight 136.985 kg Intake: IV 100 Intake, IV Titration 600 Amount Lactated Ringers 1,000 ml 600 @ 50 mls/hr IV .Q20H [facility] Rx#:[id number] Oral 1080 Output: Urine 725 Other: Voiding Method Indwelling Catheter Indwelling Catheter Diaper # Voids 3 # Bowel Movements 3 - Labs CBC & Chem 7: 05/03/21 03:55 05/04/21 03:55 Labs: Abnormal Lab Results - Last 24 Hours (Table) 05/03/21 05/04/21 Range/Units 11:33 03:55 Chloride 111 H (96-109) mmol/L Est GFR (CKD-EPI)NonAf 52.6 L (60.0-200.0) POC Glucose (mg/dL) 101 H (75-99) mg/dL Calcium 8.5 L (8.7-10.3) mg/dL Assessment and Plan Plan: Assessment: 1. Acute kidney injury mostly prerenal secondary to poor intake and diarrhea improved with IV hydration. Creatinine peaked at 1.76 this admission and is 1.3 today. Unknown baseline renal function. No hydronephrosis noted on kidney ultrasound. 2. Hypokalemia from poor intake. Replace. Better. 3. Possible chronic kidney disease. 4. Atrophic left kidney with possible mass. Urology following. 5. A. fib. Rate controlled. Cardiology following. 6. Benign hypertension. Stable. 7. Abdominal pain. Narrowing at midsigmoid colon present on CAT scan per surgery. Colonoscopy showed ileus, hemorrhoids and diverticulosis but was poor prep. No obstruction was noted. 8. Metabolic acidosis secondary to acute kidney injury and GI losses. Plan: Hep-Lock IV fluids. Encourage oral intake. Avoid nephrotoxins. Continue to monitor renal function and urine output. Add oral bicarbonate.
[2021-05-04] MEDS ORDERED: SODIUM BICARBONATE TAB 650 MG TAB PO SCH (11:00)
[2021-05-04 11:45] LABS: Glucose,Whole Blood 133 mg/dL (75-99)
--- NOTE | 2021-05-04 14:19 | P.PN ---
Subjective Progress Note Date: 05/04/21 CHIEF COMPLAINT: Abdominal pain HISTORY OF PRESENT ILLNESS: Patient status post colonoscopy which demonstrated poor bowel prep, ileus, hemorrhoids and diverticulosis. There is no evidence of obstruction at the sigmoid colon. Patient reports that he is tolerating regular diet. He is having bowel movements. His stools have been diarrhea. Denies any nausea or vomiting. Reports decrease in his abdominal distention. Afebrile creatinine 1.3 Patient seen and examined with Dr. huddleston PHYSICAL EXAM: VITAL SIGNS: Reviewed. GENERAL: Well-developed in no acute distress. HEENT: No sclera icterus. Extraocular movements grossly intact. Moist buccal mucosa. Head is atraumatic, normocephalic. ABDOMEN: Obese. Distended nontender NEUROLOGIC: Alert and oriented. Cranial nerves II through XII grossly intact. ASSESSMENT: 1. Abdominal pain improved. Status post Colonoscopy which demonstrated poor bowel prep, ileus, hemorrhoids and diverticulosis 2. Ileus 3. Atrial fibrillation 4. Hypokalemia resolved PLAN: -Okay to resume Eliquis from surgical standpoint -Continue regular diet -Continue supportive care Physician Medical Billing Supervisor note has been reviewed by physician. Signing provider agrees with the documented findings, assessment, and plan of care. Objective - Vital Signs Vital signs: Vital Signs Temp 97.8 F 05/04/21 08:01 Pulse 94 05/04/21 12:32 Resp 18 05/04/21 08:01 BP 144/82 05/04/21 08:01 Pulse Ox 96 05/04/21 08:01 Intake & Output 05/03/21 05/04/21 05/04/21 18:59 06:59 18:59 Intake Total 700 1080 Output Total 725 Balance 700 355 Weight 136.985 kg Intake: IV 100 Intake, IV Titration 600 Amount Lactated Ringers 1,000 ml 600 @ 50 mls/hr IV .Q20H [facility] Rx#:[id number] Oral 1080 Output: Urine 725 Other: Voiding Method Indwelling Catheter Indwelling Catheter Diaper # Voids 3 # Bowel Movements 3 - Labs CBC & Chem 7: 05/03/21 03:55 05/04/21 03:55 Labs: Abnormal Lab Results - Last 24 Hours (Table) 05/04/21 05/04/21 Range/Units 03:55 11:44 Chloride 111 H (96-109) mmol/L Est GFR (CKD-EPI)NonAf 52.6 L (60.0-200.0) POC Glucose (mg/dL) 133 H (75-99) mg/dL Calcium 8.5 L (8.7-10.3) mg/dL
--- NOTE | 2021-05-04 14:51 | P.DS ---
Providers Date of admission: 04/27/21 22:31 Expected date of discharge: 05/04/21 Attending physician: Shaheed Pierce Consults: 04/27/21 22:30 Consult Physician Routine Consulting Provider: Reynaldo Escobedo Consult Reason/Comments: Ileus Do you want consulting provider notified?: Already Contacted Consult Physician Routine Consulting Provider: Naeem Russell Consult Reason/Comments: Atrophic left kidney Do you want consulting provider notified?: Yes 04/29/21 03:17 Consult Physician Routine Consulting Provider: Tristan Day Consult Reason/Comments: VE runs, chronic Afib Do you want consulting provider notified?: Yes, Notify in am 04/29/21 12:45 Consult Physician Routine Consulting Provider: Edward Arceo Consult Reason/Comments: left knee pain Do you want consulting provider notified?: Yes 04/30/21 12:49 Consult Physician Routine Consulting Provider: Naeem Russell Consult Reason/Comments: possible left kid mass Do you want consulting provider notified?: Yes 05/01/21 07:33 Consult Physician Urgent Consulting Provider: Louis Dimas Consult Reason/Comments: ryan Do you want consulting provider notified?: Yes Primary care physician: [facility] Course: Chief Complaint: Abdominal distention This is a 76-year-old patient, who follows with Dr. Barry. Chronic stable medical conditions include atrial fibrillation, CHF, diabetes, GERD, hypertension, pacemaker, depression. Patient normally is a full assist. Patient's left knee was giving trouble and gaveway patient therefore presented to [facility]. Patient did not have any BMs for 7 days. Was given strong laxatives. Patient described as having tons of bowel movements. Subsequently patient's abdomen: Distended. NG tube was placed 2 days ago. No fever no chills. Patient had been eating prior to that. He was sent down here for further surgical evaluation. Patient has small BM yesterday. Has been passing flatus. . Abdomen remains distended. April 29: NG tube was discontinued yesterday. Today liquid diet. Has had some loose BM and flat this. Less distention of the abdomen. Still bothered by his knee. X-rays ordered. Orthopedics consulted. Surgery planning colonoscopy. May 03: Patient being followed by urology. Atrophic left kidney. Mass appears to be attached by a very thin is worst between the kidney and the spleen . [place] to be a proteinaceous cyst. He will follow with urology. Patient underwent colonoscopy today by Dr. Escobedo.: External hemorrhoids. Because of poor colon prep could not pass in the right colon. Large amount of liquid stool in the colon. Colonic diverticula noted on the left side. No obstructive lesion noted.. May 04: Breathing stable. Laying in bed. Discussed with patient. D iscussed the manager social media. We will go to IBD rehab. Cleared by consultants. Dr. Perkins from orthopedics will follow the patient as outpatient. Discussion and discharge planning more than 35 minutes Consultation: Dr. Escobedo from general surgery Dr. Russell from urology Dr. Perkins from orthopedics Dr. Dimas from nephrology Past medical history to include: Atrial fibrillation, CHF, diabetes, GERD, hypertension, pacemaker, depression Social history: [facility] Has full-time support. Patient is a full assist to a wheelchair. Can pivot. With help Family history: Father of a heart attack age 58 Physical examination: VITAL SIGNS: 97.8, 94, 18, 140/82, 96% room air GENERAL: Reclining in bed, awake, comfortable EYES: Pupils equal. Conjunctiva normal. HEENT: External appearance of nose and ears normal, oral cavity normal. NECK: JVD unable to assess; masses not palpable. HEART: Heart sounds distant; no edema. LUNGS: Respiratory rate normal; distant breath sounds. ABDOMEN: Soft, some distention, bowel sounds present nontender, liver spleen not palpable, no masses palpable. PSYCH: Alert and oriented x3; mood and affect normal. MUSCULOSKELETAL:No Clubbing/cyanosis;muscles-grossly intact. Evidence of OA NEUROLOGICAL: Cranial nerves grossly intact; no facial asymmetry, power and sensation grossly intact. INVESTIGATIONS, reviewed in the clinical context: May 04: Rash and 3.7 creatinine 1.3 May 03: White count 8.7 hemoglobin 13.8 potassium 3.5 creatinine 1.36 Colonoscopy: Left-sided diverticula. No obstruction April 29: White count 13.4 hemoglobin 13.6 potassium 3 BUN 32 creatinine 1.66 2-D echocardiogram: EF 55-60% X-ray left knee: Osteoarthritis. Joint effusion. Soft tissue swelling. Osteopenia. White count 12.8 hemoglobin 14.8 platelets 280 sodium 145 potassium 3 BUN 32 creatinine 1.46 UA positive for leukoesterase, WBC, RBC Coronavirus [PCR]: Not detected Computed tomography scan of the abdomen pelvis: Overall nonspecific pattern favoring nonobstructive bowel gas pattern. Abrupt transition change mid sigmoid colon without obvious mass. Chronic changes to the left kidney. Small calculi along the course of left ureter. Nondilated. 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 Assessment and plan: -Ileus following receiving laxatives.: Improved NG tube discontinued. 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 Russell -Left atrophic kidney -Primary osteoarthritis multiple joints bilateral Pain medicine when necessary -Acute on chronic pain in the left knee, with flareup of osteoarthritis and joint effusion Patient seen by Dr. Nesbitt, outpatient follow-up -Persistent atrial fibrillation, rate controlled Lopressor 100 mg twice a day. Eliquis. Telemetry. Cardizem ER 100 mg a day -BPH Flomax 0.4 mg a day -Essential hypertension Cozaar, Cardizem extended release, Lopressor -GERD Omeprazole 20 mg twice a day -Colonic diverticulosis, asymptomatic Disposition: IpD rehab at [facility] Plan - Discharge Summary Discharge Rx Participant: No New Discharge Prescriptions: New Psyllium Husk 100% [Metamucil Packet] 6 gm PO BID #1 packet Continue Ergocalciferol (Vitamin D2) [Drisdol (50,000 Iu)] 1,250 mcg PO SA Cholecalciferol [Vitamin D3 (25 Mcg = 1000 Iu)] 25 mcg PO DAILY Atorvastatin Calcium [Lipitor] 20 mg PO HS Pyridoxine [Vitamin B-6] 50 mg PO DAILY Diltiazem HCl [Diltiazem HCl 24Hr ER] 120 mg PO DAILY Calcium Carbonate/Vitamin D3 [Calcium 500 mg-Vit D3 5 mcg (200 Unit)] 1 tab PO BID HYDROcodone/APAP 10-325MG [[place] 10-325] 1 tab PO QID PRN #12 tab PRN Reason: Pain Tamsulosin HCl [Flomax] 0.4 mg PO DAILY Metoprolol Tartrate [Lopressor] 100 mg PO BID Apixaban [Eliquis] 5 mg PO BID Omeprazole 20 mg PO BID Multivitamins, Thera [Multivitamin (formulary)] 1 tab PO DAILY Losartan Potassium [Cozaar] 12.5 mg PO DAILY Alogliptin Benzoate [Alogliptin] 12.5 mg PO DAILY Changed Torsemide [Demadex] 20 mg PO DAILY #0 Discontinued Magnesium 420mg 420 mg PO TID polyethylene glycoL 3350 [Miralax] 17 gm PO DAILY Lactobacillus Acidophilus [Acidophilus] 1 tab PO BID Discharge Medication List Alogliptin Benzoate [Alogliptin] 12.5 mg PO DAILY 04/27/21 [History] Apixaban [Eliquis] 5 mg PO BID 04/27/21 [History] Atorvastatin Calcium [Lipitor] 20 mg PO HS 04/27/21 [History] Calcium Carbonate/Vitamin D3 [Calcium 500 mg-Vit D3 5 mcg (200 Unit)] 1 tab PO BID 04/27/21 [History] Cholecalciferol [Vitamin D3 (25 Mcg = 1000 Iu)] 25 mcg PO DAILY 04/27/21 [History] Diltiazem HCl [Diltiazem HCl 24Hr ER] 120 mg PO DAILY 04/27/21 [History] Ergocalciferol (Vitamin D2) [Drisdol (50,000 Iu)] 1,250 mcg PO SA 04/27/21 [History] Losartan Potassium [Cozaar] 12.5 mg PO DAILY 04/27/21 [History] Metoprolol Tartrate [Lopressor] 100 mg PO BID 04/27/21 [History] Multivitamins, Thera [Multivitamin (formulary)] 1 tab PO DAILY 04/27/21 [History] Omeprazole 20 mg PO BID 04/27/21 [History] Pyridoxine [Vitamin B-6] 50 mg PO DAILY 04/27/21 [History] Tamsulosin HCl [Flomax] 0.4 mg PO DAILY 04/27/21 [History] HYDROcodone/APAP 10-325MG [[place] 10-325] 1 tab PO QID PRN #12 tab 05/04/21 [Rx] Psyllium Husk 100% [Metamucil Packet] 6 gm PO BID #1 packet 05/04/21 [Rx] Torsemide [Demadex] 20 mg PO DAILY #0 05/04/21 [Rx] Follow up Appointment(s)/Referral(s): Bud Barry MD [Primary Care Provider] - 1-2 days Naeem Russell MD [STAFF PHYSICIAN] - 1 Week
[2021-05-04] MEDS: TAMSULOSIN 0.4 MG CAP.ER.24H PO SCH (17:44)
[2021-05-04 18:15] VITALS: BP 123/57; PULSE 67; TEMP 97.5
[2021-05-04 18:56] VITALS: RESP 16
== END 2021-05-04 19:32 | DRG 389 ==
LOC: EC 19:16 → 4SSUR 22:31
PROVIDERS: ADMIT Hospitalist; ATTEND Hospitalist
PROC: 0DJD8ZZ Inspection of Lower Intestinal Tract, Via Natural or Artificial Opening Endoscopic (ICD-10-PCS; principal; 2021-05-03 12:35)
DX: K56.7 Ileus, unspecified (principal); E87.2 Acidosis; I48.19 Other persistent atrial fibrillation; L03.116 Cellulitis of left lower limb; N17.9 Acute kidney failure, unspecified; N20.1 Calculus of ureter; E11.9 Type 2 diabetes mellitus without complications; E66.01 Morbid (severe) obesity due to excess calories; Z68.38 Body mass index [BMI] 38.0-38.9, adult; E78.5 Hyperlipidemia, unspecified; E87.6 Hypokalemia; F32.A Depression, unspecified; G89.29 Other chronic pain; I50.9 Heart failure, unspecified; I11.0 Hypertensive heart disease with heart failure; I49.3 Ventricular premature depolarization; K21.9 Gastro-esophageal reflux disease without esophagitis; M17.12 Unilateral primary osteoarthritis, left knee; Z20.822 Contact with and (suspected) exposure to COVID-19; K57.30 Diverticulosis of large intestine without perforation or abscess without bleeding; K64.4 Residual hemorrhoidal skin tags; N26.1 Atrophy of kidney (terminal); N40.0 Benign prostatic hyperplasia without lower urinary tract symptoms; Z79.01 Long term (current) use of anticoagulants; Z79.899 Other long term (current) drug therapy; Z82.49 Family history of ischemic heart disease and other diseases of the circulatory system; Z90.49 Acquired absence of other specified parts of digestive tract; Z95.0 Presence of cardiac pacemaker; Z86.14 Personal history of Methicillin resistant Staphylococcus aureus infection
CPT/HCPCS: 45378; 74176; 76770; 80048; 80053; 81001; 83735; 84132; 84145; 84484; 85025; 87086; 87324; 87635; 93005; 93306; 96374; 96375; 99285

== ENCOUNTER 2021-05-12 08:59 | Inpatient (IN) | payer MEDICARE, OTHER ==
[2021-05-12] MEDS ORDERED: SODIUM CHLORIDE 0.9% 1,000 ML IV STA (09:11)
--- NOTE | 2021-05-12 09:39 | ED ---
Abdominal Pain HPI - General Chief Complaint: Abdominal Pain Stated Complaint: Bowel Obstruction Time Seen by Provider: 05/12/21 09:00 Source: patient, EMS, RN notes reviewed, old records reviewed Mode of arrival: EMS Limitations: physical limitation - History of Present Illness Initial Comments: 76-year-old male presents by EMS and his [place] [facility] with complaints of abdominal pain and increased distention he states starting 10 days ago when he had a colonoscopy done. He's had nausea no overt vomiting he states occasionally he does pass gas from below and x-ray done yesterday which showed evidence of a severe ileus versus distal obstruction patient self denies any fevers chills or sweats at this time he does feel dry heaves a decreased oral in take MD Complaint: abdominal pain, other - Related Data Home Medications Medication Instructions Recorded Confirmed Alogliptin Benzoate [Alogliptin] 12.5 mg PO DAILY 04/27/21 04/27/21 Apixaban [Eliquis] 5 mg PO BID 04/27/21 04/27/21 Atorvastatin Calcium [Lipitor] 20 mg PO HS 04/27/21 04/27/21 Calcium Carbonate/Vitamin D3 1 tab PO BID 04/27/21 04/27/21 [Calcium 500 mg-Vit D3 5 mcg (200 Unit)] Cholecalciferol [Vitamin D3 (25 25 mcg PO DAILY 04/27/21 04/27/21 Mcg = 1000 Iu)] Diltiazem HCl [Diltiazem HCl 24Hr 120 mg PO DAILY 04/27/21 04/27/21 ER] Ergocalciferol (Vitamin D2) 1,250 mcg PO SA 04/27/21 04/27/21 [Drisdol (50,000 Iu)] Losartan Potassium [Cozaar] 12.5 mg PO DAILY 04/27/21 04/27/21 Metoprolol Tartrate [Lopressor] 100 mg PO BID 04/27/21 04/27/21 Multivitamins, Thera [Multivitamin 1 tab PO DAILY 04/27/21 04/27/21 (formulary)] Omeprazole 20 mg PO BID 04/27/21 04/27/21 Pyridoxine [Vitamin B-6] 50 mg PO DAILY 04/27/21 04/27/21 Tamsulosin HCl [Flomax] 0.4 mg PO DAILY 04/27/21 04/27/21 Previous Rx's Medication Instructions Recorded HYDROcodone/APAP 10-325MG [[place] 1 tab PO QID PRN #12 tab 05/04/21 10-325] Psyllium Husk 100% [Metamucil 6 gm PO BID #1 packet 05/04/21 Packet] Torsemide [Demadex] 20 mg PO DAILY #0 05/04/21 Allergies Allergy/AdvReac Type Severity Reaction Status Date / Time enalaprilat [From Vasotec] Allergy Cough Verified 05/12/21 13:09 latex AdvReac Rash/Hives Verified 05/12/21 13:09 Review of Systems ROS Statement: Those systems with pertinent positive or pertinent negative responses have been documented in the HPI. ROS Other: All systems not noted in ROS Statement are negative. Past Medical History Past Medical History: Atrial Fibrillation, Heart Failure, Diabetes Mellitus, GERD/Reflux, Hypertension, Vascular Disorder History of Any Multi-Drug Resistant Organisms: MRSA Date of last positivie culture/infection: 2009 MDRO Source:: Back Past Surgical History: Back Surgery, Cholecystectomy, Pacemaker Past Anesthesia/Blood Transfusion Reactions: No Reported Reaction Type of Cardiac Device: Permanent Pacemaker Device Placement Date:: 06/2018 Past Psychological History: Depression Smoking Status: Former smoker Past Alcohol Use History: None Reported Past Drug Use History: None Reported - Past Family History Father Family Medical History: Myocardial Infarction ([place]) Additional Family Medical History / Comment(s): Father passed at the age of 58 from heart attack Mother Family Medical History: Memory Impairment Additional Family Medical History / Comment(s): Mother passed from [place] at the age of 86 Brother(s) Family Medical History: Congestive Heart Failure (CHF) Sister(s) Family Medical History: Congestive Heart Failure (CHF) General Exam - General Exam Comments Initial Comments: This is a well-developed well-nourished awake alert oriented 3 male Limitations: physical limitation General appearance: alert, in no apparent distress Head exam: Present: atraumatic, normocephalic, normal inspection Eye exam: Present: normal appearance, PERRL, EOMI. Absent: scleral icterus, conjunctival injection, periorbital swelling ENT exam: Present: mucous membranes dry Neck exam: Present: normal inspection. Absent: tenderness, meningismus, lymphadenopathy Respiratory exam: Present: normal lung sounds bilaterally. Absent: respiratory distress, wheezes, rales, rhonchi, stridor Cardiovascular Exam: Present: tachycardia, irregular rhythm, normal heart sounds. Absent: systolic murmur, diastolic murmur, rubs, gallop, clicks GI/Abdominal exam: Present: soft, distended (Distended with increased tympany.), hyperactive bowel sounds. Absent: tenderness, guarding, rebound, rigid, bruit, pulsatile mass Extremities exam: Present: full ROM, normal capillary refill, other (Stasis dermatitis noted). Absent: tenderness, pedal edema, joint swelling, calf tenderness Back exam: Present: normal inspection Neurological exam: Present: alert, oriented X3, CN II-XII intact Psychiatric exam: Present: normal affect, normal mood Skin exam: Present: warm, dry, intact, normal color. Absent: rash Course Vital Signs 05/12/21 05/12/21 05/12/21 09:01 09:33 11:24 Temperature 98.3 F 97.9 F Pulse Rate 120 H 101 H 105 H Respiratory 19 18 17 Rate Blood Pressure 146/100 152/73 153/87 O2 Sat by Pulse 97 96 98 Oximetry Medical Decision Making - Medical Decision Making Did discuss findings with the patient as well as Dr. Pierce patient will be admitted IV hydration and surgical consultation. - Lab Data Result diagrams: 05/12/21 09:23 05/12/21 09:23 Lab Results 05/12/21 05/12/21 05/12/21 Range/Units 09:23 09:23 09:23 WBC 8.8 (3.8-10.6) k/uL RBC 4.38 (4.30-5.90) m/uL Hgb 13.2 (13.0-17.5) gm/dL Hct 40.7 (39.0-53.0) % MCV 92.9 (80.0-100.0) fL MCH 30.1 (25.0-35.0) pg MCHC 32.5 (31.0-37.0) g/dL RDW 15.1 (11.5-15.5) % Plt Count 252 (150-450) k/uL MPV 7.6 Neutrophils % 75 % Lymphocytes % 14 % Monocytes % 7 % Eosinophils % 2 % Basophils % 1 % Neutrophils # 6.5 (1.3-7.7) k/uL Lymphocytes # 1.2 (1.0-4.8) k/uL Monocytes # 0.6 (0-1.0) k/uL Eosinophils # 0.2 (0-0.7) k/uL Basophils # 0.0 (0-0.2) k/uL PT 12.1 H (9.0-12.0) sec INR 1.1 (<1.2) APTT 30.7 H (22.0-30.0) sec Sodium (137-145) mmol/L Potassium (3.5-5.1) mmol/L Chloride (98-107) mmol/L Carbon Dioxide (22-30) mmol/L Anion Gap mmol/L BUN (9-20) mg/dL Creatinine (0.66-1.25) mg/dL Est GFR (CKD-EPI)AfAm (>60 ml/min/1.73 sqM) Est GFR (CKD-EPI)NonAf (>60 ml/min/1.73 sqM) Glucose (74-99) mg/dL Plasma Lactic Acid [place] (0.7-2.0) mmol/L Calcium (8.4-10.2) mg/dL Magnesium (1.6-2.3) mg/dL Total Bilirubin (0.2-1.3) mg/dL AST (17-59) U/L ALT (4-49) U/L Alkaline Phosphatase (38-126) U/L Troponin I (0.000-0.034) ng/mL Total Protein (6.3-8.2) g/dL Albumin (3.5-5.0) g/dL Amylase (30-110) U/L Lipase (23-300) U/L Urine Color Yellow Urine Appearance Turbid (Clear) Urine pH 7.0 (5.0-8.0) Ur Specific [place] 1.019 (1.001-1.035) Urine Protein 1+ H (Negative) Urine Glucose (UA) Negative (Negative) Urine Ketones Negative (Negative) Urine Blood Small H (Negative) Urine Nitrite Negative (Negative) Urine Bilirubin Negative (Negative) Urine Urobilinogen <2.0 (<2.0) mg/dL Ur Leukocyte Esterase Large H (Negative) Urine RBC 11 H (0-5) /hpf Urine WBC >182 H (0-5) /hpf Urine WBC Clumps Many H (None) /hpf Ur Squamous Epith Cells 1 (0-4) /hpf Urine Bacteria Few H (None) /hpf Urine Mucus Rare H (None) /hpf 05/12/21 05/12/21 05/12/21 Range/Units 09:23 09:23 09:23 WBC (3.8-10.6) k/uL RBC (4.30-5.90) m/uL Hgb (13.0-17.5) gm/dL Hct (39.0-53.0) % MCV (80.0-100.0) fL MCH (25.0-35.0) pg MCHC (31.0-37.0) g/dL RDW (11.5-15.5) % Plt Count (150-450) k/uL MPV Neutrophils % % Lymphocytes % % Monocytes % % Eosinophils % % Basophils % % Neutrophils # (1.3-7.7) k/uL Lymphocytes # (1.0-4.8) k/uL Monocytes # (0-1.0) k/uL Eosinophils # (0-0.7) k/uL Basophils # (0-0.2) k/uL PT (9.0-12.0) sec INR (<1.2) APTT (22.0-30.0) sec Sodium 138 (137-145) mmol/L Potassium 3.5 (3.5-5.1) mmol/L Chloride 111 H (98-107) mmol/L Carbon Dioxide 21 L (22-30) mmol/L Anion Gap 6 mmol/L BUN 12 (9-20) mg/dL Creatinine 1.21 (0.66-1.25) mg/dL Est GFR (CKD-EPI)AfAm 67 (>60 ml/min/1.73 sqM) Est GFR (CKD-EPI)NonAf 58 (>60 ml/min/1.73 sqM) Glucose 123 H (74-99) mg/dL Plasma Lactic Acid [place] 1.0 (0.7-2.0) mmol/L Calcium 8.2 L (8.4-10.2) mg/dL Magnesium 1.5 L (1.6-2.3) mg/dL Total Bilirubin 1.0 (0.2-1.3) mg/dL AST 44 (17-59) U/L ALT 39 (4-49) U/L Alkaline Phosphatase 98 (38-126) U/L Troponin I <0.012 (0.000-0.034) ng/mL Total Protein 6.9 (6.3-8.2) g/dL Albumin 2.9 L (3.5-5.0) g/dL Amylase 53 (30-110) U/L Lipase 167 (23-300) U/L Urine Color Urine Appearance (Clear) Urine pH (5.0-8.0) Ur Specific [place] (1.001-1.035) Urine Protein (Negative) Urine Glucose (UA) (Negative) Urine Ketones (Negative) Urine Blood (Negative) Urine Nitrite (Negative) Urine Bilirubin (Negative) Urine Urobilinogen (<2.0) mg/dL Ur Leukocyte Esterase (Negative) Urine RBC (0-5) /hpf Urine WBC (0-5) /hpf Urine WBC Clumps (None) /hpf Ur Squamous Epith Cells (0-4) /hpf Urine Bacteria (None) /hpf Urine Mucus (None) /hpf - EKG Data -: EKG Interpreted by Me EKG shows normal: sinus rhythm EKG Comments: Atrial fibrillation rate of 99 QRS 91 daily since QTC 3:30/[address] configuration - Radiology Data Radiology results: report reviewed (Return from the sending facility reviewed including imaging. CAT scan shows evidence of severe ileus versus possibly Cecille's with some evidence of dilated small bowel loops.), image reviewed Disposition Clinical Impression: Ileus, Dehydration, Abdominal pain, Urinary tract infection Disposition: ADMITTED IP TO THIS [facility] Condition: Fair Referrals: Bud Barry MD [Primary Care Provider] - 1-2 days
[2021-05-12 09:45] LABS: Basophils % (A) 1 %; Eosinophils # (A) 0.2 k/uL (0-0.7); Eosinophils % (A) 2 %; HCT 40.7 % (39.0-53.0); HGB 13.2 gm/dL (13.0-17.5); Lymphocytes # (A) 1.2 k/uL (1.0-4.8); Lymphocytes % (A) 14 %; MCH 30.1 pg (25.0-35.0); MCHC 32.5 g/dL (31.0-37.0); MCV 92.9 fL (80.0-100.0); Mean Platelet Volume 7.6; Monocytes # (A) 0.6 k/uL (0-1.0); Monocytes % (A) 7 %; Neutrophils # (A) 6.5 k/uL (1.3-7.7); Neutrophils % (A) 75 %; Platelet Count 252 k/uL (150-450); RBC 4.38 m/uL (4.30-5.90); RDW 15.1 % (11.5-15.5); WBC 8.8 k/uL (3.8-10.6)
[2021-05-12 09:55] LABS: INR 1.1 (<1.2); Partial Thromboplastin Time 30.7 sec (22.0-30.0); Prothrombin Time 12.1 sec (9.0-12.0)
--- NOTE | 2021-05-12 10:04 | XR ---
KUB HISTORY: Abdominal pain and distention KUB submitted on 5 images and correlated to prior exam from outside institution dated 05/12/2021 Extensive dilated loops of small and large bowel are present throughout the abdomen. Surgical clips a re noted. There is no evident pneumoperitoneum. Lead is present within the heart. Degenerative disc c hanges a spinal curvature noted incidentally. Indeterminate metallic densities are present in the lef t paraspinal location. Surgical clips present in the right upper quadrant. IMPRESSION: Correlate for possible bowel obstruction versus ileus.
[2021-05-12 10:11] LABS: Albumin 2.9 g/dL (3.5-5.0); Calcium 8.2 mg/dL (8.4-10.2); Magnesium 1.5 mg/dL (1.6-2.3); Potassium 3.5 mmol/L (3.5-5.1); Total Protein 6.9 g/dL (6.3-8.2)
--- NOTE | 2021-05-12 11:27 | CT ---
EXAMINATION TYPE: CT abdomen pelvis w con DATE OF EXAM: 05/12/2021 COMPARISON: 04/28/2021 HISTORY: 76-year-old male acute, nonlocalized abdominal pain, Pain and distention for 2 weeks TECHNIQUE: Contiguous axial scanning of the abdomen and pelvis following administration of 100 ml Iso ayleen 300 IV contrast. Delayed images through the kidneys and coronal/sagittal reconstructions perform ed. CT DLP: 2828.4 mGycm Automated exposure control for dose reduction was used. FINDINGS: Right atrial and right ventricular pacer leads. Heart normal size. Mild LAD coronary artery calcifica tions are present. Strandy atelectasis or scarring in the visualized lower lungs. No pleural effusion . No focal liver lesion. Portal venous system is patent. No biliary ductal dilatation. Cholecystectomy clips. Adrenal glands and spleen within normal limits. Bilateral renal cortical cysts measuring up to 5.3 cm on the left and 3.6 cm on the right. The left k idney is atrophic and contains numerous calculi along the course of the left ureter measuring up to 1 cm. Rounded soft tissue area pancreatic body measures 2.6 cm. Recommend further laboratory assessment and possible EUS to exclude a pancreatic mass. Bilateral scattered calcifications infrarenal abdominal aorta and common iliac arteries. Some mildly dilated small bowel measure up to 4.0 cm now, coronal image 39. Normal appendix. However, the dominant pattern is dilatation of the colon. Transverse colon measures up to 11.4 cm versus 10.4 cm, previously. Relative transition point now at the splenic flexure of the colon, sagittal image 12 6 but without any discrete mass identified. Scattered left-sided colonic diverticulosis. No definite pericolonic inflammatory change. No free air or free fluid identified. Circumferential bladder wall thickening but bladder collapsed with Villeda catheter in place. Prostate gland measures 5.4 cm wide. Liquid stool in the rectum. Otherwise, no abnormal fluid collection the p poonam or pelvic lymphadenopathy. Bones: Osteitis pubis. Moderate degenerative change at both hips. No bony ankylosis SI joints. Status post laminectomies L3 and L4. Focal lordosis at L3-L4. Grade 2 anterolisthesis L4-L5 is fixed. Grade 1 retrolisthesis L3-L4 with severe hypertrophic facet arthropathy. There is interbody gliosis throug hout the visualized course of the left spine suggesting ankylosing spondylitis. IMPRESSION: 1. PROGRESSIVE DILATATION OF THE COLON OR TRANSVERSE COLON NOW MEASURES UP TO 11.4 CM VERSUS 10.4 CM ON 04/28/2021. WHILE WE SEE A RELATIVE TRANSITION POINT AT THE SPLENIC FLEXURE NOW, THERE IS NO DISCRE TE MASS OR OBSTRUCTING LESION IDENTIFIED. CONSIDER A SIGNIFICANT ILEUS OR NIRALI'S POSSIBLE ETIOL OGIES. CLINICAL SURVEILLANCE RECOMMENDED. COLONOSCOPY EVALUATION CAN BE CONSIDERED WELL. 2. SMALL SMALL BOWEL LOOPS ARE NOW DILATED WELL UP TO 4.0 CM BUT WITHOUT A SMALL BOWEL TRANSITION POINT TO SUGGEST SMALL BOWEL OBSTRUCTION. 3. SIGMOID DIVERTICULOSIS WITHOUT ACUTE DIVERTICULITIS. 4. ROUNDED 2.6 CM SOFT TISSUE AREA AT THE PANCREATIC BODY. THIS COULD REPRESENT PROMINENT LOBULE OF P ANCREATIC TISSUE. UNDERLYING PANCREATIC MASS NOT EXCLUDED AT THIS TIME. CORRELATE WITH TUMOR MARKERS. DEPENDING ON CLINICAL SUSPICION, EITHER PURSUE EUS VERSUS THREE-MONTH FOLLOW-UP CT. 5. ATRETIC LEFT KIDNEY CONTAINING NUMEROUS CALCULI ALONG THE COURSE OF THE LEFT URETER MEASURING UP TO 1.0 CM. LIKELY A CHRONIC FINDING. 6. VILLEDA CATHETER IN PLACE. THERE IS CIRCUMFERENTIAL BLADDER WALL THICKENING PROBABLY RELATING TO CHR ONIC BLADDER WALL HYPERTROPHY. CORRELATE TO EXCLUDE CYSTITIS. 7. FOCAL LORDOSIS OF THE LUMBAR SPINE AT L3-L4. THERE IS LAMINECTOMY HERE AND GRADE 1 RETROLISTHESIS. BONY ANKYLOSIS THROUGHOUT THE REMAINDER OF THE SPINE AND SI JOINTS SUGGESTING ANKYLOSING SPONDYLITIS . CLINICALLY CORRELATE. CORRELATE TO EXCLUDE ABNORMAL HYPERMOBILITY AT THIS NONFUSED L3-L4 LEVEL.
[2021-05-12 11:49] LABS: Appearance,Urine Turbid (Clear); Bacteria,Urine Few /hpf; Bilirubin,Urine Negative (Negative); Blood,Urine Small (Negative); Color,Urine Yellow; Glucose,Urine (UA) Negative (Negative); Ketones,Urine Negative (Negative); Leukocyte Esterase,Urine Large (Negative); Mucus,Urine Rare /hpf; Nitrite,Urine Negative (Negative); Protein,Urine 1+ (Negative); RBC,Urine 11 /hpf (0-5); Specific Gravity,Urine 1.019 (1.001-1.035); Squamous Epithelial Cell,Urine 1 /hpf (0-4); Urobilinogen,Urine <2.0 mg/dL (<2.0); WBC,Urine >182 /hpf (0-5)
[2021-05-12] MEDS ORDERED: cefTRIAXone IN SWFI 1,000 MG/10 ML SYRINGE IVP STA (13:17)
[2021-05-12] MEDS ORDERED: MAGNESIUM SULFATE-D5W PMX 1 GM in DEXTROSE/WATER 1 100ML.BAG IVPB ONE (13:17)
[2021-05-12] MEDS ORDERED: NALOXONE 0.4 MG/ML 1 ML VIAL IV PRN (13:18)
[2021-05-12] MEDS ORDERED: HYDROmorphone 1 MG/ML 1 ML SYRINGE IVP STA (13:25)
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
[2021-05-12] MEDS: PANTOPRAZOLE 40 MG/10 ML VIAL IV SCH (19:42)
[2021-05-12] MEDS: METOCLOPRAMIDE 5 MG/ML 2 ML VIAL IVP SCH (19:42)
[2021-05-12] MEDS: SODIUM CHLORIDE 0.9% 1,000 ML IV SCH ×2 (20:54→21:39)
[2021-05-12] MEDS: HYDROmorphone 1 MG/ML 1 ML SYRINGE IVP PRN (21:37)
[2021-05-13] MEDS: METOCLOPRAMIDE 5 MG/ML 2 ML VIAL IVP SCH ×4 (01:14→18:19)
[2021-05-13] MEDS: HYDROmorphone 1 MG/ML 1 ML SYRINGE IVP PRN ×3 (05:26→20:53)
[2021-05-13] MEDS: SODIUM CHLORIDE 0.9% 1,000 ML IV SCH ×3 (05:27→20:22)
[2021-05-13] MEDS: PANTOPRAZOLE 40 MG/10 ML VIAL IV SCH (08:17)
[2021-05-13 11:30] LABS: African American GFR (CKD) 72 (>60 ml/min/1.73 sqM); Anion Gap 5 mmol/L; Blood Urea Nitrogen 9 mg/dL (9-20); Calcium 7.6 mg/dL (8.4-10.2); Carbon Dioxide 23 mmol/L (22-30); Chloride 113 mmol/L (98-107); Glucose 114 mg/dL (74-99); Non-African American GFR(CKD) 63 (>60 ml/min/1.73 sqM); Sodium 141 mmol/L (137-145)
[2021-05-13] MEDS: DILTIAZEM CD 120 MG CAP.ER.24H PO SCH (11:36)
[2021-05-13] MEDS: TAMSULOSIN 0.4 MG CAP.ER.24H PO SCH (11:36)
[2021-05-13] MEDS: METOPROLOL TARTRATE 50 MG TAB PO SCH ×2 (11:37→20:21)
[2021-05-13] MEDS: LOSARTAN 25 MG TAB PO SCH (11:38)
[2021-05-13 11:39] LABS: Magnesium 1.7 mg/dL (1.6-2.3); Potassium 3.6 mmol/L (3.5-5.1)
--- NOTE | 2021-05-13 13:53 | P.PN ---
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 Patient reports passing some flatus yesterday. He reports some improvement in his abdominal pain and slight improvement in his abdominal distention. Denies any nausea or vomiting. Patient requesting ice chips. Afebrile labs for today pending Patient seen and examined with Dr. huddleston PHYSICAL EXAM: VITAL SIGNS: Reviewed. GENERAL: Well-developed in no acute distress. HEENT: No sclera icterus. Extraocular movements grossly intact. Moist buccal mucosa. Head is atraumatic, normocephalic. ABDOMEN: Distended. Diffuse tenderness decreased NEUROLOGIC: Alert and oriented. Cranial nerves II through XII grossly intact. ASSESSMENT: 1. Abdominal distention with abdominal pain likely due to severe ileus or Vernal's syndrome 2. Hypomagnesemia 3. UTI 4. 2.6 cm soft rounded tissue area at the pancreatic body. Can have repeat CT abdomen in 3 months for further evaluation PLAN: -Nothing by mouth except for ice chips -Continue Reglan -Continue supportive care -Continue to monitor electrolytes -Continue antibiotic for UTI Physician Corsetier note has been reviewed by physician. Signing provider agrees with the documented findings, assessment, and plan of care. Objective - Vital Signs Vital signs: Vital Signs Temp 98.8 F 05/13/21 07:44 Pulse 92 05/13/21 07:55 Resp 18 05/13/21 07:44 BP 166/81 05/13/21 07:44 Pulse Ox 94 L 05/13/21 07:44 Intake & Output 05/12/21 05/13/21 05/13/21 18:59 06:59 18:59 Output Total 300 Balance -300 Weight 136.078 kg Output: Urine 300 Other: Voiding Method Indwelling Catheter Indwelling Catheter - Labs CBC & Chem 7: 05/12/21 09:23 05/13/21 10:30 Labs: Abnormal Lab Results - Last 24 Hours (Table) 05/12/21 Range/Units 09:23 Urine Protein 1+ H (Negative) Urine Blood Small H (Negative) Ur Leukocyte Esterase Large H (Negative) Urine RBC 11 H (0-5) /hpf Urine WBC >182 H (0-5) /hpf Urine WBC Clumps Many H (None) /hpf Urine Bacteria Few H (None) /hpf Urine Mucus Rare H (None) /hpf Microbiology - Last 24 Hours (Table) 05/12/21 09:23 Urine Culture - Preliminary Urine,Voided
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
[2021-05-13] MEDS: MAGNESIUM OXIDE 400 MG TAB PO SCH (20:21)
[2021-05-13] MEDS: ATORVASTATIN 20 MG TAB PO SCH (20:21)
[2021-05-13] MEDS: guaiFENesin 600 MG TABLET.ER PO SCH (20:21)
[2021-05-14] MEDS: METOCLOPRAMIDE 5 MG/ML 2 ML VIAL IVP SCH ×5 (00:48→23:29)
[2021-05-14] MEDS: SODIUM CHLORIDE 0.9% 1,000 ML IV SCH ×3 (01:54→20:24)
[2021-05-14 06:47] LABS: African American GFR (CKD) 72 (>60 ml/min/1.73 sqM); Anion Gap 4 mmol/L; Blood Urea Nitrogen 9 mg/dL (9-20); Calcium 7.6 mg/dL (8.4-10.2); Carbon Dioxide 21 mmol/L (22-30); Chloride 117 mmol/L (98-107); Glucose 109 mg/dL (74-99); Non-African American GFR(CKD) 62 (>60 ml/min/1.73 sqM); Sodium 142 mmol/L (137-145)
[2021-05-14] MEDS ORDERED: POTASSIUM CHLORIDE ER 20 MEQ TAB.ER PO STA ×2 (08:06→21:44)
[2021-05-14] MEDS: LOSARTAN 25 MG TAB PO SCH (08:46)
[2021-05-14] MEDS: guaiFENesin 600 MG TABLET.ER PO SCH ×2 (08:46→20:25)
[2021-05-14] MEDS: PANTOPRAZOLE 40 MG TABLET PO SCH ×2 (08:46→17:10)
[2021-05-14] MEDS: TAMSULOSIN 0.4 MG CAP.ER.24H PO SCH (08:46)
[2021-05-14] MEDS: MAGNESIUM OXIDE 400 MG TAB PO SCH ×3 (08:46→20:24)
[2021-05-14] MEDS: METOPROLOL TARTRATE 50 MG TAB PO SCH ×2 (08:46→20:24)
--- NOTE | 2021-05-14 11:42 | P.PN ---
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 Patient reports having flatus and bowel movements. Reports decrease in his abdominal pain and some decrease in his abdominal distention. He did have a temp of 100.3 yesterday. Currently on ice chips. Potassium is low at 3.0 and being replaced Patient seen and examined with Dr. huddleston PHYSICAL EXAM: VITAL SIGNS: Reviewed. GENERAL: Well-developed in no acute distress. HEENT: No sclera icterus. Extraocular movements grossly intact. Moist buccal mucosa. Head is atraumatic, normocephalic. ABDOMEN: Abdomen softer. Slight decrease in abdominal distention. Nontender NEUROLOGIC: Alert and oriented. Cranial nerves II through XII grossly intact. ASSESSMENT: 1. Abdominal distention with abdominal pain likely due to severe ileus or Manchester's syndrome 2. Hypomagnesemia 3. UTI 4. 2.6 cm soft rounded tissue area at the pancreatic body. Can have repeat CT abdomen in 3 months for further evaluation 5. Hypokalemia PLAN: -Advance diet to full liquids -Continue Reglan -Continue supportive care -Continue to monitor and correct electrolytes -Continue antibiotic for UTI Physician Air Quality Chemist note has been reviewed by physician. Signing provider agrees with the documented findings, assessment, and plan of care. Objective - Vital Signs Vital signs: Vital Signs Temp 98 F 05/14/21 08:12 Pulse 86 05/14/21 08:12 Resp 19 05/14/21 08:12 BP 133/71 05/14/21 08:12 Pulse Ox 95 05/14/21 08:12 Intake & Output 05/13/21 05/14/21 05/14/21 18:59 06:59 18:59 Intake Total 1590 Output Total 500 800 300 Balance -500 790 -300 Weight 142.8 kg Intake: Intake, IV Titration 1350 Amount Sodium Chloride 0.9% 1, 1300 000 ml @ 130 mls/hr IV . Q7H42M [facility] Rx#:[id number] cefTRIAXone 1 gm In 50 Sodium Chloride 0.9% 50 ml @ 100 mls/hr IVPB Q12HR [facility] Rx#:[id number] Oral 240 Output: Urine 500 800 300 Uretheral (Chanel) 500 800 Other: Voiding Method Indwelling Catheter Indwelling Catheter Indwelling Catheter # Bowel Movements 1 1 - Labs CBC & Chem 7: 05/12/21 09:23 05/14/21 06:07 Labs: Abnormal Lab Results - Last 24 Hours (Table) 05/14/21 Range/Units 06:07 Potassium 3.0 L (3.5-5.1) mmol/L Chloride 117 H (98-107) mmol/L Carbon Dioxide 21 L (22-30) mmol/L Glucose 109 H (74-99) mg/dL Calcium 7.6 L (8.4-10.2) mg/dL Microbiology - Last 24 Hours (Table) 05/12/21 09:23 Urine Culture - Preliminary Urine,Voided Gram Neg Bacilli 05/12/21 10:41 Blood Culture - Preliminary Blood No Growth after 24 hours 05/12/21 09:50 Blood Culture - Preliminary Blood No Growth after 24 hours
--- NOTE | 2021-05-14 13:52 | XR ---
EXAMINATION TYPE: XR abdomen 1V DATE OF EXAM: 05/14/2021 COMPARISON: NONE HISTORY: Pain TECHNIQUE: One view abdominal series FINDINGS: Cardiomegaly is noted and there are surgical clips in the right upper quadrant. A rounded circular de nsity in the right upper quadrant could be superficial to patient correlate clinically. There is dege nerative change of the spine. There remains numerous dilated small and large bowel loops which demonstrate no significant interval change. Assessment for free air limited and nondiagnostic. Sclerotic density overlying the right femu r likely related to bone island. IMPRESSION: 1. Persistent numerous dilated small and large bowel loops. Bowel obstruction in the differential charly gnosis. Hector syndrome or severe ileus not excluded.
[2021-05-14] MEDS: DILTIAZEM CD 120 MG CAP.ER.24H PO SCH (14:05)
[2021-05-14] MEDS: HYDROmorphone 1 MG/ML 1 ML SYRINGE IVP PRN (14:05)
[2021-05-14] MEDS: ATORVASTATIN 20 MG TAB PO SCH (20:25)
--- NOTE | 2021-05-14 22:42 | P.PN ---
Progress Note - Text Progress Note Date: 05/14/21 Chief Complaint: Abdominal distention History of presenting complaint: This is a 76-year-old patient, who follows with Dr. Barry. Chronic stable medical conditions include atrial fibrillation, CHF, diabetes, GERD, hypertension, pacemaker, depression. Patient normally is a full assist. Patient was recently in the hospital from April 28 through May 04. Patient had. [facility] for left knee pain and was given laxatives and subsequently patient related to ileus. We had put the patient on her NG tube. He was doing well by the time he left. Patient's found to have a atrophic left kidney, mass appears to be attached by a very pleasant between the kidney and the spleen. We'll follow up with urology. Did undergo colonoscopy by Dr. Escobedo. Also seen by Dr. Laz Chacko left knee. Patient was discharged to [facility] rehab at [facility]. Patient now presents stating that since he left. Abdomen was started to be distended again. In got worse. Appetite is poor. Patient been having some liquid bowel movements. Including today. And yesterday. Moderate amount. Patient remains a full assist. No fever no chills. No nausea vomiting. No abdominal pain except for significant distention. Admitted with severe small large bowel ileus/ogilvies. Acute UTI. May 14: Abdomen remains very distended. Liquid diet. Did have a moderate liquid stool earlier today. No nausea vomiting. Active Medications Acetaminophen (Acetaminophen Tab 325 Mg Tab) 650 mg PO Q6HR PRN PRN Reason: Fever>101 Atorvastatin Calcium (Atorvastatin 20 Mg Tab) 20 mg PO HS [facility] Last Admin: 05/14/21 20:25 Dose: 20 mg Documented by: Diltiazem HCl (Diltiazem Cd 120 Mg Cap.Er.24h) 120 mg PO DAILY [facility] Last Admin: 05/14/21 14:05 Dose: 120 mg Documented by: Guaifenesin (Guaifenesin 600 Mg Tablet.Er) 600 mg PO Q12HR [facility] Last Admin: 05/14/21 20:25 Dose: 600 mg Documented by: Hydromorphone HCl (Hydromorphone 1 Mg/Ml 1 Ml Syringe) 1 mg IVP Q3HR PRN PRN Reason: Pain Last Admin: 05/14/21 14:05 Dose: 1 mg Documented by: Sodium Chloride (Saline 0.9%) 1,000 mls @ 130 mls/hr IV .Q7H42M [facility] Last Admin: 05/14/21 20:24 Dose: 130 mls/hr Documented by: Ceftriaxone Sodium 1 gm/ (Sodium Chloride) 50 mls @ 100 mls/hr IVPB Q12HR [facility] Last Admin: 05/14/21 20:24 Dose: 100 mls/hr Documented by: Losartan Potassium (Losartan 25 Mg Tab) 12.5 mg PO DAILY [facility] Last Admin: 05/14/21 08:46 Dose: 12.5 mg Documented by: Magnesium Oxide (Magnesium Oxide 400 Mg Tab) 400 mg PO TID [facility] Last Admin: 05/14/21 20:24 Dose: 400 mg Documented by: Metoclopramide HCl (Metoclopramide 5 Mg/Ml 2 Ml Vial) 10 mg IVP Q6HR [facility] Last Admin: 05/14/21 17:09 Dose: 10 mg Documented by: Metoprolol Tartrate (Metoprolol Tartrate 50 Mg Tab) 100 mg PO BID [facility] Last Admin: 05/14/21 20:24 Dose: 100 mg Documented by: Naloxone HCl (Naloxone 0.4 Mg/Ml 1 Ml Vial) 0.2 mg IV Q2M PRN PRN Reason: Opioid Reversal Ondansetron HCl (Ondansetron 4 Mg/2 Ml Vial) 4 mg IVP Q8HR PRN PRN Reason: Nausea And Vomiting Pantoprazole Sodium (Pantoprazole 40 Mg Tablet) 40 mg PO AC-BID [facility] Last Admin: 05/14/21 17:10 Dose: 40 mg Documented by: Tamsulosin HCl (Tamsulosin 0.4 Mg Cap.Er.24h) 0.4 mg PO DAILY [facility] Last Admin: 05/14/21 08:46 Dose: 0.4 mg Documented by: Past medical history to include: Atrial fibrillation, CHF, diabetes, GERD, hypertension, pacemaker, depression. Atrophic left kidney. Mass outside the left kidney being followed by urology. Colonic diverticulosis. Social history: Currently at [facility] rehab [facility] Has full-time support. Patient is a full assist to a wheelchair. Can pivot. With help Family history: Father of a heart attack age 58 Physical examination: VITAL SIGNS: 98.6, 95, 16, 152/74, 94% room air GENERAL: laying in bed, awake, not in distress. EYES: Pupils equal. Conjunctiva normal. HEENT: External appearance of nose and ears normal, oral cavity grossly normal. NECK: JVD not raised; masses not palpable. HEART: First and second heart sounds are normal; no edema. LUNGS: Respiratory rate normal; clear to auscultation. ABDOMEN: Soft, grossly distended hyperactive bowel sounds nontender, liver spleen not palpable, no masses palpable. PSYCH: Alert and oriented x3; mood and affect normal. MUSCULOSKELETAL:No Clubbing/cyanosis;muscles-grossly intact. Evidence of OA INVESTIGATIONS, reviewed in the clinical context: May 14: Sodium 142 potassium 3 creatinine 1.14 White count 8.8 hemoglobin 13.2 platelets 252 potassium 3.6 BUN 9 creatinine 1.13 UA positive for leukoesterase WBC Computed tomography scan of the abdomen: Progressive dilatation of the colon up to 11.64 cm with some transition point at the splenic flexure. Small bowel loops also dilated. Sigmoid diverticulosis. Atrophic left kidney. With numerous calculi. Spinal changes. Coronavirus PCR: Not detected EKG tracing personally reviewed by me-atrial flutter fibrillation with a rate of 99 Abdominal x-ray film personally reviewed by me: Greatly distended loops of bowel From previous admission Computed tomography scan of the abdomen pelvis: Overall nonspecific pattern favoring nonobstructive bowel gas pattern. Abrupt transition change mid sigmoid colon without obvious mass. Chronic changes to the left kidney. Small calculi along the course of left ureter. Nondilated. 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 Assessment and plan: -Severe large and small bowel/severe ileus. Recent admission patient had ileus and had responded to laxatives. Incomplete colonoscopy showed diverticulosis.: Slow to respond Having liquid stools. On Reglan. 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 Russell -Left atrophic kidney -Primary osteoarthritis multiple joints bilateral Pain medicine when necessary -Persistent atrial fibrillation, rate controlled Lopressor 100 mg twice a day. Eliquis. Telemetry. Cardizem ER 100 mg a day -BPH Flomax 0.4 mg a day -Essential hypertension Cozaar, Cardizem extended release, Lopressor -Hypokalemia from diarrhea Drip place -GERD Omeprazole 20 mg twice a day -Colonic diverticulosis, asymptomatic -Chronic medical debility Patient has been a full assist -Acute UTI with cystitis, from gram-negative bacilli IV ceftriaxone Continue IV ceftriaxone. Advance to full liquid diet. Upper the side of the bed as started. Other medications to continue. Discussed with patient. Replace potassium
[2021-05-15] MEDS: SODIUM CHLORIDE 0.9% 1,000 ML IV SCH ×2 (01:10→12:16)
[2021-05-15] MEDS: HYDROmorphone 1 MG/ML 1 ML SYRINGE IVP PRN ×2 (01:38→08:31)
[2021-05-15] MEDS: AMPICILLIN-SULBACTAM 3 GM in SODIUM CHLORIDE 0.9% 100 ML IVPB SCH ×4 (02:13→22:33)
[2021-05-15] MEDS: METOCLOPRAMIDE 5 MG/ML 2 ML VIAL IVP SCH ×4 (05:23→23:22)
[2021-05-15] MEDS: guaiFENesin 600 MG TABLET.ER PO SCH ×2 (07:59→22:33)
[2021-05-15] MEDS: LOSARTAN 25 MG TAB PO SCH (07:59)
[2021-05-15] MEDS: DILTIAZEM CD 120 MG CAP.ER.24H PO SCH (08:00)
[2021-05-15] MEDS: PANTOPRAZOLE 40 MG TABLET PO SCH ×2 (08:00→17:31)
[2021-05-15] MEDS: TAMSULOSIN 0.4 MG CAP.ER.24H PO SCH (08:00)
[2021-05-15] MEDS: METOPROLOL TARTRATE 50 MG TAB PO SCH ×2 (08:00→22:33)
[2021-05-15] MEDS: MAGNESIUM OXIDE 400 MG TAB PO SCH ×3 (08:00→22:32)
[2021-05-15 09:25] LABS: African American GFR (CKD) 75.5 (60.0-200.0); Anion Gap 10.6 mmol/L (10.00-18.00); BUN/Creat Ratio 7.22 Ratio (12.00-20.00); Blood Urea Nitrogen 7.9 mg/dL (9.0-27.0); Calcium 7.6 mg/dL (8.7-10.3); Carbon Dioxide 18.5 mmol/L (20.0-27.5); Magnesium 1.8 mg/dL (1.5-2.4); Non-African American GFR(CKD) 65.1 (60.0-200.0); Potassium 3.5 mmol/L (3.5-5.5)
--- NOTE | 2021-05-15 10:30 | P.PN ---
Progress Note - Text Progress Note Date: 05/15/21 Patient is resting comfortably in his bed. He states he is passing gas and having bowel movements. On exam vital signs are stable. Abdomen is soft. There is minimal distention. Resolve colonic ileus. Patient continue receive supportive care.
[2021-05-15] MEDS ORDERED: FUROSEMIDE 10 MG/ML 4 ML VIAL IV STA (12:14)
--- NOTE | 2021-05-15 13:54 | XR ---
EXAMINATION TYPE: XR abdomen 2V DATE OF EXAM: 05/15/2021 1:32 PM INDICATION: Patient age:Male; 76 years old; Reason for study: f/u ileus; COMPARISON: CT abdomen pelvis 05/12/2021, radiograph 05/14/2021. TECHNIQUE: One radiographic view of the abdomen was obtained. FINDINGS: Persistent dilated loops of bowel are seen within the upper abdomen films gas. Gastric tube is in appropriate position. There is right upper quadrant: Clips. Multilevel degenerative changes of the spine. IMPRESSION: 1. Findings suggestive of persistent ileus gas-filled loops of bowel seen in the upper abdomen. 2. Nasogastric tube in appropriate position.
[2021-05-15] MEDS: DICLOFENAC SODIUM GEL 100 GM TUBE TOPICAL SCH ×3 (15:27→22:36)
--- NOTE | 2021-05-15 16:40 | P.PN ---
Progress Note - Text Progress Note Date: 05/15/21 Chief Complaint: Abdominal distention History of presenting complaint: This is a 76-year-old patient, who follows with Dr. Barry. Chronic stable medical conditions include atrial fibrillation, CHF, diabetes, GERD, hypertension, pacemaker, depression. Patient normally is a full assist. Patient was recently in the hospital from April 28 through May 04. Patient had. [facility] for left knee pain and was given laxatives and subsequently patient related to ileus. We had put the patient on her NG tube. He was doing well by the time he left. Patient's found to have a atrophic left kidney, mass appears to be attached by a very pleasant between the kidney and the spleen. We'll follow up with urology. Did undergo colonoscopy by Dr. Escobedo. Also seen by Dr. Laz Chacko left knee. Patient was discharged to [facility] rehab at [facility]. Patient now presents stating that since he left. Abdomen was started to be distended again. In got worse. Appetite is poor. Patient been having some liquid bowel movements. Including today. And yesterday. Moderate amount. Patient remains a full assist. No fever no chills. No nausea vomiting. No abdominal pain except for significant distention. Admitted with severe small large bowel ileus/ogilvies. Acute UTI. May 14: Abdomen remains very distended. Liquid diet. Did have a moderate liquid stool earlier today. No nausea vomiting. May 15: Abdomen remains very distended. Liquid diet. Passing liquid stool. We will try a rectal tube and see if it helps. IV Unasyn. Urine culture positive for Proteus mirabilis/ESBL Active Medications Acetaminophen (Acetaminophen Tab 325 Mg Tab) 650 mg PO Q6HR PRN PRN Reason: Fever>101 Atorvastatin Calcium (Atorvastatin 20 Mg Tab) 20 mg PO HS [facility] Last Admin: 05/14/21 20:25 Dose: 20 mg Documented by: Diclofenac Sodium (Diclofenac Sodium Gel 100 Gm Tube) 4 gm TOPICAL QID [facility]; Protocol Last Admin: 05/15/21 15:27 Dose: 4 gm Documented by: Diltiazem HCl (Diltiazem Cd 120 Mg Cap.Er.24h) 120 mg PO DAILY [facility] Last Admin: 05/15/21 08:00 Dose: 120 mg Documented by: Guaifenesin (Guaifenesin 600 Mg Tablet.Er) 600 mg PO Q12HR [facility] Last Admin: 05/15/21 07:59 Dose: 600 mg Documented by: Ampicillin Sodium/Sulbactam (Sodium 3 gm/ Sodium Chloride) 100 mls @ 200 mls/hr IVPB Q6H [facility] Last Admin: 05/15/21 15:28 Dose: 200 mls/hr Documented by: Losartan Potassium (Losartan 25 Mg Tab) 12.5 mg PO DAILY [facility] Last Admin: 05/15/21 07:59 Dose: 12.5 mg Documented by: Magnesium Oxide (Magnesium Oxide 400 Mg Tab) 400 mg PO TID [facility] Last Admin: 05/15/21 15:28 Dose: 400 mg Documented by: Metoclopramide HCl (Metoclopramide 5 Mg/Ml 2 Ml Vial) 10 mg IVP Q6HR [facility] Last Admin: 05/15/21 12:12 Dose: 10 mg Documented by: Metoprolol Tartrate (Metoprolol Tartrate 50 Mg Tab) 100 mg PO BID [facility] Last Admin: 05/15/21 08:00 Dose: 100 mg Documented by: Naloxone HCl (Naloxone 0.4 Mg/Ml 1 Ml Vial) 0.2 mg IV Q2M PRN PRN Reason: Opioid Reversal Ondansetron HCl (Ondansetron 4 Mg/2 Ml Vial) 4 mg IVP Q8HR PRN PRN Reason: Nausea And Vomiting Pantoprazole Sodium (Pantoprazole 40 Mg Tablet) 40 mg PO AC-BID [facility] Last Admin: 05/15/21 08:00 Dose: 40 mg Documented by: Tamsulosin HCl (Tamsulosin 0.4 Mg Cap.Er.24h) 0.4 mg PO DAILY [facility] Last Admin: 05/15/21 08:00 Dose: 0.4 mg Documented by: Past medical history to include: Atrial fibrillation, CHF, diabetes, GERD, hypertension, pacemaker, depression. Atrophic left kidney. Mass outside the left kidney being followed by urology. Colonic diverticulosis. Social history: Currently at [facility] rehab Lives at [facility]. Has full-time support. Patient is a full assist to a wheelchair. Can pivot. With help Family history: Father of a heart attack age 58 Physical examination: VITAL SIGNS: 97.9, 88, 18, 1 46 x 82, 94% room air GENERAL: laying in bed, awake, not in distress. EYES: Pupils equal. Conjunctiva normal. HEENT: External appearance of nose and ears normal, oral cavity grossly normal. NECK: JVD not raised; masses not palpable. HEART: First and second heart sounds are normal; no edema. LUNGS: Respiratory rate normal; clear to auscultation. ABDOMEN: Soft, grossly distended hyperactive bowel sounds nontender, liver spleen not palpable, no masses palpable. PSYCH: Alert and oriented x3; mood and affect normal. MUSCULOSKELETAL:No Clubbing/cyanosis;muscles-grossly intact. Evidence of OA INVESTIGATIONS, reviewed in the clinical context: May 15: Sodium 146 potassium 3.5 creatinine 1.1. Abdominal x-ray film personally reviewed by me: Shows persistent dilated bowels Urine culture positive for: Proteus mirabilis/ESBL May 14: Sodium 142 potassium 3 creatinine 1.14 White count 8.8 hemoglobin 13.2 platelets 252 potassium 3.6 BUN 9 creatinine 1.13 UA positive for leukoesterase WBC Computed tomography scan of the abdomen: Progressive dilatation of the colon up to 11.64 cm with some transition point at the splenic flexure. Small bowel loops also dilated. Sigmoid diverticulosis. Atrophic left kidney. With numerous calculi. Spinal changes. Coronavirus PCR: Not detected EKG tracing personally reviewed by me-atrial flutter fibrillation with a rate of 99 Abdominal x-ray film personally reviewed by me: Greatly distended loops of bowel From previous admission Computed tomography scan of the abdomen pelvis: Overall nonspecific pattern favoring nonobstructive bowel gas pattern. Abrupt transition change mid sigmoid colon without obvious mass. Chronic changes to the left kidney. Small calculi along the course of left ureter. Nondilated. 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 Assessment and plan: -Severe large and small bowel/severe ileus. Recent admission patient had ileus and had responded to laxatives. Incomplete colonoscopy showed diverticulosis.: Slow to respond Having liquid stools. On Reglan. 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 Russell -Left atrophic kidney -Primary osteoarthritis multiple joints bilateral Pain medicine when necessary -Persistent atrial fibrillation, rate controlled Lopressor 100 mg twice a day. Eliquis. Telemetry. Cardizem ER 100 mg a day -BPH Flomax 0.4 mg a day -Essential hypertension Cozaar, Cardizem extended release, Lopressor -Hypokalemia from diarrhea Drip place -GERD Omeprazole 20 mg twice a day -Colonic diverticulosis, asymptomatic -Chronic medical debility Patient has been a full assist -Acute UTI with cystitis, from Proteus mirabilis/ESBL. IV Unasyn IV Unasyn. full liquid diet. We will try a rectal tube. Follow with surgery.
[2021-05-15] MEDS: ATORVASTATIN 20 MG TAB PO SCH (22:33)
[2021-05-15] MEDS: ACETAMINOPHEN TAB 325 MG TAB PO PRN (22:34)
[2021-05-16] MEDS: traMADol 50 MG TAB PO PRN ×3 (00:22→21:23)
[2021-05-16] MEDS: AMPICILLIN-SULBACTAM 3 GM in SODIUM CHLORIDE 0.9% 100 ML IVPB SCH ×4 (02:44→21:21)
[2021-05-16] MEDS: METOCLOPRAMIDE 5 MG/ML 2 ML VIAL IVP SCH ×4 (05:28→23:19)
[2021-05-16 05:31] LABS: African American GFR (CKD) 71 (>60 ml/min/1.73 sqM); Anion Gap 10 mmol/L; Blood Urea Nitrogen 13 mg/dL (9-20); Calcium 7.9 mg/dL (8.4-10.2); Carbon Dioxide 20 mmol/L (22-30); Chloride 113 mmol/L (98-107); Glucose 107 mg/dL (74-99); Non-African American GFR(CKD) 61 (>60 ml/min/1.73 sqM); Potassium 3.3 mmol/L (3.5-5.1); Sodium 143 mmol/L (137-145)
[2021-05-16] MEDS: MAGNESIUM OXIDE 400 MG TAB PO SCH ×2 (08:33→21:22)
[2021-05-16] MEDS: guaiFENesin 600 MG TABLET.ER PO SCH ×2 (08:33→21:22)
[2021-05-16] MEDS: TAMSULOSIN 0.4 MG CAP.ER.24H PO SCH (08:33)
[2021-05-16] MEDS: METOPROLOL TARTRATE 50 MG TAB PO SCH ×2 (08:33→21:22)
[2021-05-16] MEDS: DICLOFENAC SODIUM GEL 100 GM TUBE TOPICAL SCH ×4 (08:34→21:42)
[2021-05-16] MEDS: LOSARTAN 25 MG TAB PO SCH (08:34)
[2021-05-16] MEDS: PANTOPRAZOLE 40 MG TABLET PO SCH ×2 (08:34→17:09)
[2021-05-16] MEDS: DILTIAZEM CD 120 MG CAP.ER.24H PO SCH (08:49)
--- NOTE | 2021-05-16 12:02 | P.PN ---
Progress Note - Text Progress Note Date: 05/16/21 Patient appears to be more distended today. He has had minimal output. On exam vital signs are stable. Abdomen is distended firm and tense. He has minimal pain. Chronic pseudoobstruction of colon. Patient may require colostomy if this persists. The patient will undergo abdominal x-rays today.
--- NOTE | 2021-05-16 14:04 | XR ---
EXAMINATION TYPE: XR abdomen 2V DATE OF EXAM: 05/16/2021 COMPARISON: 05/15/2021 INDICATION: Distended abdomen TECHNIQUE: Abdomen is examined in the upright view with multiple images. FINDINGS: Prominent air-filled colon is again noted. There are scattered somewhat prominent small bowel loops c ontaining air. Differential air-fluid levels are not identified. Findings appear very similar to the previous exam. Psoas margins are normal. No organomegaly is present. IMPRESSION: 1. Prominent air-filled loops of bowel appear stable from comparison to 05/15/2021.
[2021-05-16] MEDS ORDERED: NEOSTIGMINE IVPB ONE ×2 (15:30→18:00)
[2021-05-16] MEDS ORDERED: SODIUM CHLORIDE 0.9% IVPB ONE ×2 (15:30→18:00)
[2021-05-16] MEDS ORDERED: POTASSIUM CHLORIDE ER 20 MEQ TAB.ER PO STA (17:22)
--- NOTE | 2021-05-16 17:22 | P.PN ---
Progress Note - Text Progress Note Date: 05/16/21 Chief Complaint: Abdominal distention History of presenting complaint: This is a 76-year-old patient, who follows with Dr. Barry. Chronic stable medical conditions include atrial fibrillation, CHF, diabetes, GERD, hypertension, pacemaker, depression. Patient normally is a full assist. Patient was recently in the hospital from April 28 through May 04. Patient had. [facility] for left knee pain and was given laxatives and subsequently patient related to ileus. We had put the patient on her NG tube. He was doing well by the time he left. Patient's found to have a atrophic left kidney, mass appears to be attached by a very pleasant between the kidney and the spleen. We'll follow up with urology. Did undergo colonoscopy by Dr. Escobedo. Also seen by Dr. Laz Chacko left knee. Patient was discharged to [facility] rehab at [facility]. Patient now presents stating that since he left. Abdomen was started to be distended again. In got worse. Appetite is poor. Patient been having some liquid bowel movements. Including today. And yesterday. Moderate amount. Patient remains a full assist. No fever no chills. No nausea vomiting. No abdominal pain except for significant distention. Admitted with severe small large bowel ileus/ogilvies. Acute UTI. May 14: Abdomen remains very distended. Liquid diet. Did have a moderate liquid stool earlier today. No nausea vomiting. May 15: Abdomen remains very distended. Liquid diet. Passing liquid stool. We will try a rectal tube and see if it helps. IV Unasyn. Urine culture positive for Proteus mirabilis/ESBL May 16: Abdomen remains very distended. Some liquid stools. Liquid diet. On IV Unasyn. Patient not responding to conservative measures. Spoke to the nurse and a rectal tube was placed yesterday. Did obtain a good amount of gas. Told him to use it again today. Spoke to the pharmacy will give 5 mg dose of neostigmine IV as that sometimes known to help. Discussed with the nurse. Last option would be surgery. We'll also try NG tube to continuous suction. With by mouth medications. For 24 hours at least. Active Medications Acetaminophen (Acetaminophen Tab 325 Mg Tab) 650 mg PO Q6HR PRN PRN Reason: Fever>101 Last Admin: 05/15/21 22:34 Dose: 650 mg Documented by: Atorvastatin Calcium (Atorvastatin 20 Mg Tab) 20 mg PO HS [facility] Last Admin: 05/15/21 22:33 Dose: 20 mg Documented by: Diclofenac Sodium (Diclofenac Sodium Gel 100 Gm Tube) 4 gm TOPICAL QID [facility]; Protocol Last Admin: 05/16/21 14:27 Dose: 4 gm Documented by: Diltiazem HCl (Diltiazem Cd 120 Mg Cap.Er.24h) 120 mg PO DAILY [facility] Last Admin: 05/16/21 08:49 Dose: 120 mg Documented by: Guaifenesin (Guaifenesin 600 Mg Tablet.Er) 600 mg PO Q12HR [facility] Last Admin: 05/16/21 08:33 Dose: 600 mg Documented by: Ampicillin Sodium/Sulbactam (Sodium 3 gm/ Sodium Chloride) 100 mls @ 200 mls/hr IVPB Q6H [facility] Last Admin: 05/16/21 14:27 Dose: 200 mls/hr Documented by: Losartan Potassium (Losartan 25 Mg Tab) 12.5 mg PO DAILY [facility] Last Admin: 05/16/21 08:34 Dose: 12.5 mg Documented by: Magnesium Oxide (Magnesium Oxide 400 Mg Tab) 400 mg PO TID [facility] Last Admin: 05/16/21 08:33 Dose: 400 mg Documented by: Metoclopramide HCl (Metoclopramide 5 Mg/Ml 2 Ml Vial) 10 mg IVP Q6HR [facility] Last Admin: 05/16/21 17:09 Dose: 10 mg Documented by: Metoprolol Tartrate (Metoprolol Tartrate 50 Mg Tab) 100 mg PO BID [facility] Last Admin: 05/16/21 08:33 Dose: 100 mg Documented by: Naloxone HCl (Naloxone 0.4 Mg/Ml 1 Ml Vial) 0.2 mg IV Q2M PRN PRN Reason: Opioid Reversal Ondansetron HCl (Ondansetron 4 Mg/2 Ml Vial) 4 mg IVP Q8HR PRN PRN Reason: Nausea And Vomiting Pantoprazole Sodium (Pantoprazole 40 Mg Tablet) 40 mg PO AC-BID [facility] Last Admin: 05/16/21 17:09 Dose: 40 mg Documented by: Tamsulosin HCl (Tamsulosin 0.4 Mg Cap.Er.24h) 0.4 mg PO DAILY [facility] Last Admin: 05/16/21 08:33 Dose: 0.4 mg Documented by: Tramadol HCl (Tramadol 50 Mg Tab) 50 mg PO QID PRN PRN Reason: Moderate to Severe Pain Last Admin: 05/16/21 12:34 Dose: 50 mg Documented by: Past medical history to include: Atrial fibrillation, CHF, diabetes, GERD, hypertension, pacemaker, depression. Atrophic left kidney. Mass outside the left kidney being followed by urology. Colonic diverticulosis. Social history: Currently at [facility] rehab Lives at [facility]. Has full-time support. Patient is a full assist to a wheelchair. Can pivot. With help Family history: Father of a heart attack age 58 Physical examination: VITAL SIGNS: 98.4, 72, 18, 163, 98% room air GENERAL: laying in bed, awake, not in distress. EYES: Pupils equal. Conjunctiva normal. HEENT: External appearance of nose and ears normal, oral cavity grossly normal. NECK: JVD not raised; masses not palpable. HEART: First and second heart sounds are normal; no edema. LUNGS: Respiratory rate normal; clear to auscultation. ABDOMEN: Soft, grossly distended hyperactive bowel sounds nontender, liver spleen not palpable, no masses palpable. PSYCH: Alert and oriented x3; mood and affect normal. MUSCULOSKELETAL:No Clubbing/cyanosis;muscles-grossly intact. Evidence of OA INVESTIGATIONS, reviewed in the clinical context: May 16: Potassium 3.3 May 15: Sodium 146 potassium 3.5 creatinine 1.1. Abdominal x-ray film personally reviewed by me: Shows persistent dilated bowels Urine culture positive for: Proteus mirabilis/ESBL May 14: Sodium 142 potassium 3 creatinine 1.14 White count 8.8 hemoglobin 13.2 platelets 252 potassium 3.6 BUN 9 creatinine 1.13 UA positive for leukoesterase WBC Computed tomography scan of the abdomen: Progressive dilatation of the colon up to 11.64 cm with some transition point at the splenic flexure. Small bowel loops also dilated. Sigmoid diverticulosis. Atrophic left kidney. With numerous calculi. Spinal changes. Coronavirus PCR: Not detected EKG tracing personally reviewed by me-atrial flutter fibrillation with a rate of 99 Abdominal x-ray film personally reviewed by me: Greatly distended loops of bowel From previous admission Computed tomography scan of the abdomen pelvis: Overall nonspecific pattern favoring nonobstructive bowel gas pattern. Abrupt transition change mid sigmoid colon without obvious mass. Chronic changes to the left kidney. Small calculi along the course of left ureter. Nondilated. 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 Assessment and plan: -Severe large and small bowel/severe ileus. Recent admission patient had ileus and had responded to laxatives. Incomplete colonoscopy showed diverticulosis.: Not improving Patient's had several days of the same. Now will try the rectal tube along with NG tube to suction. Nothing by mouth. Also try neostigmine drip. This was discussed with the pharmacy and the nurse. If all this fails a last resort will be surgery. 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 Russell -Left atrophic kidney -Primary osteoarthritis multiple joints bilateral Pain medicine when necessary -Persistent atrial fibrillation, rate controlled Lopressor 100 mg twice a day. Eliquis. Telemetry. Cardizem ER 100 mg a day -BPH Flomax 0.4 mg a day -Essential hypertension Cozaar, Cardizem extended release, Lopressor -Hypokalemia from diarrhea Drip place -GERD Omeprazole 20 mg twice a day -Colonic diverticulosis, asymptomatic -Chronic medical debility Patient has been a full assist -Acute UTI with cystitis, from Proteus mirabilis/ESBL. IV Unasyn Rectal tube. NG tube to suction. Make nothing by mouth. IV neostigmine drip. Telemetry. Discussed with pharmacy and the nurse. Total time spent today 45 minutes with over 25 minutes of discussion.
--- NOTE | 2021-05-16 19:09 | XR ---
EXAMINATION TYPE: XR chest 1V portable DATE OF EXAM: 05/16/2021 COMPARISON: NONE HISTORY: Check tube placement TECHNIQUE: Single view FINDINGS: There is no heart failure no confluent pneumonic infiltrate. Costophrenic angles are clear. There is left axillary pacemaker. There is no pleural effusion. There appears to be nasogastric tube and the tip is not well seen. Tip is probably at the gastroesophageal junction. IMPRESSION: NG tube has tip probably at the gastroesophageal junction. Not clearly in the stomach.
--- NOTE | 2021-05-16 20:44 | XR ---
EXAMINATION TYPE: XR chest 1V portable DATE OF EXAM: 05/16/2021 COMPARISON: Today HISTORY: Check tube placement TECHNIQUE: Single view FINDINGS: There is no heart failure nor confluent pneumonic infiltrate. Costophrenic angles are clear . There is left axillary pacemaker. Exam limited by positioning. There is nasogastric tube and its ti p is well below the diaphragm. Tip is probably in the body of the stomach. IMPRESSION: No acute lung disease. NG tube tip is probably in the stomach..
[2021-05-16] MEDS: SODIUM CHLORIDE 0.9% 1,000 ML IV SCH (21:21)
[2021-05-16] MEDS: ATORVASTATIN 20 MG TAB PO SCH (21:22)
[2021-05-16] MEDS: ONDANSETRON 4 MG/2 ML VIAL IVP PRN (21:24)
[2021-05-16] MEDS: SODIUM CHLORIDE 0.9% IVPB SCH (23:14)
[2021-05-16] MEDS: NEOSTIGMINE IVPB SCH (23:14)
[2021-05-17] MEDS ORDERED: LORazepam 2 MG/ML INJ IV STA (00:58)
[2021-05-17] MEDS: AMPICILLIN-SULBACTAM 3 GM in SODIUM CHLORIDE 0.9% 100 ML IVPB SCH ×4 (03:45→21:08)
[2021-05-17] MEDS: METOCLOPRAMIDE 5 MG/ML 2 ML VIAL IVP SCH ×3 (05:43→16:42)
[2021-05-17] MEDS: SODIUM CHLORIDE 0.9% 1,000 ML IV SCH ×2 (05:44→22:19)
[2021-05-17] MEDS: SODIUM CHLORIDE 0.9% IVPB SCH ×2 (07:26→16:42)
[2021-05-17] MEDS: NEOSTIGMINE IVPB SCH ×2 (07:26→16:42)
[2021-05-17] MEDS: DILTIAZEM CD 120 MG CAP.ER.24H PO SCH (07:52)
[2021-05-17] MEDS: LOSARTAN 25 MG TAB PO SCH (07:52)
[2021-05-17] MEDS: guaiFENesin 600 MG TABLET.ER PO SCH (07:52)
[2021-05-17] MEDS: METOPROLOL TARTRATE 50 MG TAB PO SCH ×2 (07:52→21:08)
[2021-05-17] MEDS: TAMSULOSIN 0.4 MG CAP.ER.24H PO SCH (07:52)
[2021-05-17] MEDS: PANTOPRAZOLE 40 MG TABLET PO SCH ×2 (07:52→16:43)
[2021-05-17] MEDS: DICLOFENAC SODIUM GEL 100 GM TUBE TOPICAL SCH ×3 (07:53→16:43)
[2021-05-17] MEDS: MAGNESIUM OXIDE 400 MG TAB PO SCH ×2 (07:53→16:43)
[2021-05-17 10:25] LABS: Basophils % (A) 0 %; Eosinophils # (A) 0.2 k/uL (0-0.7); Eosinophils % (A) 3 %; HCT 37.8 % (39.0-53.0); HGB 12.1 gm/dL (13.0-17.5); Hypochromasia Slight; Lymphocytes # (A) 1.2 k/uL (1.0-4.8); Lymphocytes % (A) 17 %; MCH 30.3 pg (25.0-35.0); MCV 94.5 fL (80.0-100.0); Mean Platelet Volume 7.5; Monocytes # (A) 0.4 k/uL (0-1.0); Monocytes % (A) 5 %; Neutrophils # (A) 4.9 k/uL (1.3-7.7); Neutrophils % (A) 72 %; Platelet Count 288 k/uL (150-450); RDW 15.4 % (11.5-15.5); WBC 6.8 k/uL (3.8-10.6)
[2021-05-17 10:37] LABS: African American GFR (CKD) 68 (>60 ml/min/1.73 sqM); Anion Gap 8 mmol/L; Blood Urea Nitrogen 13 mg/dL (9-20); Carbon Dioxide 22 mmol/L (22-30); Chloride 113 mmol/L (98-107); Glucose 113 mg/dL (74-99); Magnesium 1.6 mg/dL (1.6-2.3); Non-African American GFR(CKD) 59 (>60 ml/min/1.73 sqM); Potassium 3.3 mmol/L (3.5-5.1); Sodium 143 mmol/L (137-145)
[2021-05-17] MEDS ORDERED: POTASSIUM CHLORIDE ER 20 MEQ TAB.ER PO STA (14:27)
--- NOTE | 2021-05-17 14:29 | P.PN ---
Subjective Progress Note Date: 05/17/21 CHIEF COMPLAINT: Abdominal pain HISTORY OF PRESENT ILLNESS: Patient with chronic pseudoobstruction of colon. He currently has fecal management system in. He is having stool and gas. NG tube in place with a hard 50 mL output. Patient reported improvement in abdominal pain and abdominal distention. Abdominal x-ray prominent air-filled loops of bowel appears stable from comparison to 05/15/2021. Afebrile. WBC 6.8 hemoglobin 12.1 potassium is 3.3 creatinine 1.18 magnesium 1.6 Patient seen and examined with Dr. huddleston PHYSICAL EXAM: VITAL SIGNS: Reviewed. GENERAL: Well-developed in no acute distress. HEENT: No sclera icterus. Extraocular movements grossly intact. Moist buccal mucosa. Head is atraumatic, normocephalic. ABDOMEN: Abdomen softer. Slight decrease in abdominal distention. Nontender NEUROLOGIC: Alert and oriented. Cranial nerves II through XII grossly intact. ASSESSMENT: 1. Chronic pseudoobstruction of colon bdominal distention with abdominal pain likely due to severe ileus or [place]'s syndrome 2. Hypomagnesemia 3. Hypokalemia 4. UTI PLAN: -Continue to monitor patient closely. Patient is tentatively scheduled for a possible diverting colostomy on 05/19/2021 -Continue NG tube for decompression -keep patient NPO -Continue Reglan -Continue supportive care -Continue to monitor and correct electrolytes -Continue antibiotic for UTI Physician [employer] Extractor note has been reviewed by physician. Signing provider agrees with the documented findings, assessment, and plan of care. Objective - Vital Signs Vital signs: Vital Signs Temp 97.5 F L 05/17/21 05:34 Pulse 73 05/17/21 05:34 Resp 16 05/17/21 05:34 BP 144/78 05/17/21 05:34 Pulse Ox 94 L 05/17/21 05:34 Intake & Output 05/16/21 05/17/21 05/17/21 18:59 06:59 18:59 Intake Total 1640 Output Total 650 900 Balance 1640 -650 -900 Intake: Intake, IV Titration 1100 Amount Ampicillin-Sulbactam 3 gm 200 In Sodium Chloride 0.9% 100 ml @ 200 mls/hr IVPB Q6H [facility] Rx#:[id number] Sodium Chloride 0.9% 1, 900 000 ml @ 75 mls/hr IV . [id number] [facility] Rx#:[id number] Oral 540 Output: Gastric Drainage 150 Urine 500 Stool 900 Other: Voiding Method Indwelling Catheter Indwelling Catheter Indwelling Catheter # Bowel Movements 1 - Labs CBC & Chem 7: 05/17/21 09:18 05/17/21 09:18 Labs: Abnormal Lab Results - Last 24 Hours (Table) 05/17/21 05/17/21 Range/Units 09:18 09:18 RBC 4.00 L (4.30-5.90) m/uL Hgb 12.1 L (13.0-17.5) gm/dL Hct 37.8 L (39.0-53.0) % Potassium 3.3 L (3.5-5.1) mmol/L Chloride 113 H (98-107) mmol/L Glucose 113 H (74-99) mg/dL Calcium 8.0 L (8.4-10.2) mg/dL Microbiology - Last 24 Hours (Table) 05/12/21 10:41 Blood Culture - Preliminary Blood No Growth after 120 hours 05/12/21 09:50 Blood Culture - Preliminary Blood No Growth after 120 hours
[2021-05-17 15:08] VITALS: BMI 42.0
[2021-05-17] MEDS ORDERED: POTASSIUM BICARBONATE/CIT AC 20 MEQ TABLET.EFF PO ONE (15:48)
[2021-05-17] MEDS: ONDANSETRON 4 MG/2 ML VIAL IVP PRN (19:30)
--- NOTE | 2021-05-17 21:05 | P.PN ---
Progress Note - Text Progress Note Date: 05/17/21 Chief Complaint: Abdominal distention History of presenting complaint: This is a 76-year-old patient, who follows with Dr. Barry. Chronic stable medical conditions include atrial fibrillation, CHF, diabetes, GERD, hypertension, pacemaker, depression. Patient normally is a full assist. Patient was recently in the hospital from April 28 through May 04. Patient had. [facility] for left knee pain and was given laxatives and subsequently patient related to ileus. We had put the patient on her NG tube. He was doing well by the time he left. Patient's found to have a atrophic left kidney, mass appears to be attached by a very pleasant between the kidney and the spleen. We'll follow up with urology. Did undergo colonoscopy by Dr. Escobedo. Also seen by Dr. Laz Chacko left knee. Patient was discharged to [facility] rehab at [facility]. Patient now presents stating that since he left. Abdomen was started to be distended again. In got worse. Appetite is poor. Patient been having some liquid bowel movements. Including today. And yesterday. Moderate amount. Patient remains a full assist. No fever no chills. No nausea vomiting. No abdominal pain except for significant distention. Admitted with severe small large bowel ileus/ogilvies. Acute UTI. May 14: Abdomen remains very distended. Liquid diet. Did have a moderate liquid stool earlier today. No nausea vomiting. May 15: Abdomen remains very distended. Liquid diet. Passing liquid stool. We will try a rectal tube and see if it helps. IV Unasyn. Urine culture positive for Proteus mirabilis/ESBL May 16: Abdomen remains very distended. Some liquid stools. Liquid diet. On IV Unasyn. Patient not responding to conservative measures. Spoke to the nurse and a rectal tube was placed yesterday. Did obtain a good amount of gas. Told him to use it again today. Spoke to the pharmacy will give 5 mg dose of neostigmine IV as that sometimes known to help. Discussed with the nurse. Last option would be surgery. We'll also try NG tube to continuous suction. With by mouth medications. For 24 hours at least. May 17: Patient had a very large bowel movement today. Has been on neostimine drip. NG tube. Rectal tube. This morning discussed with Dr. Escobedo. Discussed with patient. Active Medications Acetaminophen (Acetaminophen Tab 325 Mg Tab) 650 mg PO Q6HR PRN PRN Reason: Fever>101 Last Admin: 05/15/21 22:34 Dose: 650 mg Documented by: Atorvastatin Calcium (Atorvastatin 20 Mg Tab) 20 mg PO HS [facility] Last Admin: 05/16/21 21:22 Dose: 20 mg Documented by: Diclofenac Sodium (Diclofenac Sodium Gel 100 Gm Tube) 4 gm TOPICAL QID [facility]; Protocol Last Admin: 05/17/21 16:43 Dose: 4 gm Documented by: Diltiazem HCl (Diltiazem Oral 30 Mg Tab) 30 mg PO QID [facility] Guaifenesin (Guaifenesin Syrup 100mg/5ml 200 Mg/10 Ml Cup) 400 mg PO TID [facility] Ampicillin Sodium/Sulbactam (Sodium 3 gm/ Sodium Chloride) 100 mls @ 200 mls/hr IVPB Q6H [facility] Last Admin: 05/17/21 13:36 Dose: 200 mls/hr Documented by: Sodium Chloride (Saline 0.9%) 1,000 mls @ 75 mls/hr IV .[id number] [facility] Last Admin: 05/17/21 05:44 Dose: 75 mls/hr Documented by: Losartan Potassium (Losartan 25 Mg Tab) 12.5 mg PO DAILY [facility] Last Admin: 05/17/21 07:52 Dose: 12.5 mg Documented by: Magnesium Oxide (Magnesium Oxide 400 Mg Tab) 400 mg PO TID [facility] Last Admin: 05/17/21 16:43 Dose: 400 mg Documented by: Metoclopramide HCl (Metoclopramide 5 Mg/Ml 2 Ml Vial) 10 mg IVP Q6HR [facility] Last Admin: 05/17/21 16:42 Dose: 10 mg Documented by: Metoprolol Tartrate (Metoprolol Tartrate 50 Mg Tab) 100 mg PO BID [facility] Last Admin: 05/17/21 07:52 Dose: 100 mg Documented by: Naloxone HCl (Naloxone 0.4 Mg/Ml 1 Ml Vial) 0.2 mg IV Q2M PRN PRN Reason: Opioid Reversal Ondansetron HCl (Ondansetron 4 Mg/2 Ml Vial) 4 mg IVP Q8HR PRN PRN Reason: Nausea And Vomiting Last Admin: 05/17/21 19:30 Dose: 4 mg Documented by: Pantoprazole Sodium (Pantoprazole 40 Mg/10 Ml Vial) 40 mg IVP BID [facility] Tamsulosin HCl (Tamsulosin 0.4 Mg Cap.Er.24h) 0.4 mg PO DAILY [facility] Last Admin: 05/17/21 07:52 Dose: 0.4 mg Documented by: Tramadol HCl (Tramadol 50 Mg Tab) 50 mg PO QID PRN PRN Reason: Moderate to Severe Pain Last Admin: 05/16/21 21:23 Dose: 50 mg Documented by: Past medical history to include: Atrial fibrillation, CHF, diabetes, GERD, hypertension, pacemaker, depression. Atrophic left kidney. Mass outside the left kidney being followed by urology. Colonic diverticulosis. Social history: Currently at [facility] reh Lives at [facility]. Has full-time support. Patient is a full assist to a wheelchair. Can pivot. With help Family history: Father of a heart attack age 58 Physical examination: VITAL SIGNS: 97.7, 71, 18, 152/83, 97% room air GENERAL: laying in bed, awake, EYES: Pupils equal. Conjunctiva normal. HEENT: External appearance of nose and ears normal, oral cavity grossly normal. NG tube. NECK: JVD not raised; masses not palpable. HEART: First and second heart sounds are normal; no edema. LUNGS: Respiratory rate normal; clear to auscultation. ABDOMEN: Soft, much less distended nontender, liver spleen not palpable, no masses palpable. Rectal tube PSYCH: Alert and oriented x3; mood and affect normal. MUSCULOSKELETAL:No Clubbing/cyanosis;muscles-grossly intact. Evidence of OA INVESTIGATIONS, reviewed in the clinical context: May 17: White count 6.8 potassium 3.3 creatinine 1.18 May 16: Potassium 3.3 May 15: Sodium 146 potassium 3.5 creatinine 1.1. Abdominal x-ray film personally reviewed by me: Shows persistent dilated bowels Urine culture positive for: Proteus mirabilis/ESBL May 14: Sodium 142 potassium 3 creatinine 1.14 White count 8.8 hemoglobin 13.2 platelets 252 potassium 3.6 BUN 9 creatinine 1.13 UA positive for leukoesterase WBC Computed tomography scan of the abdomen: Progressive dilatation of the colon up to 11.64 cm with some transition point at the splenic flexure. Small bowel loops also dilated. Sigmoid diverticulosis. Atrophic left kidney. With numerous calculi. Spinal changes. Coronavirus PCR: Not detected EKG tracing personally reviewed by me-atrial flutter fibrillation with a rate of 99 Abdominal x-ray film personally reviewed by me: Greatly distended loops of bowel From previous admission Computed tomography scan of the abdomen pelvis: Overall nonspecific pattern favoring nonobstructive bowel gas pattern. Abrupt transition change mid sigmoid colon without obvious mass. Chronic changes to the left kidney. Small calculi along the course of left ureter. Nondilated. 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 Assessment and plan: -Severe large and small bowel/severe ileus. Recent admission patient had ileus and had responded to laxatives. Incomplete colonoscopy showed diverticulosis.: Patient responded well today to Neostigmine drip. Had a large BM. Add Metamucil. 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 Russell -Left atrophic kidney -Primary osteoarthritis multiple joints bilateral Pain medicine when necessary -Persistent atrial fibrillation, rate controlled Lopressor 100 mg twice a day. Eliquis. Telemetry. Cardizem ER 100 mg a day -BPH Flomax 0.4 mg a day -Essential hypertension Cozaar, Cardizem extended release, Lopressor -Hypokalemia from diarrhea Drip place -GERD Omeprazole 20 mg twice a day -Colonic diverticulosis, asymptomatic -Chronic medical debility Patient has been a full assist -Acute UTI with cystitis, from Proteus mirabilis/ESBL. IV Unasyn Rectal tube. NG tube to suction. IV neostigmine drip. Continue current treatment plan. By mouth medications. Add Metamucil. Total time spent today about 45 minutes with over 25 minutes of discussion.
[2021-05-17] MEDS: traMADol 50 MG TAB PO PRN (22:18)
[2021-05-18] MEDS: AMPICILLIN-SULBACTAM 3 GM in SODIUM CHLORIDE 0.9% 100 ML IVPB SCH ×4 (01:41→20:22)
[2021-05-18] MEDS: MAGNESIUM OXIDE 400 MG TAB PO SCH ×4 (02:02→21:57)
[2021-05-18] MEDS: PSYLLIUM HUSK 100% 6 GM PACKET PO SCH ×3 (02:02→20:23)
[2021-05-18] MEDS: ATORVASTATIN 20 MG TAB PO SCH ×2 (02:02→20:23)
[2021-05-18] MEDS: DICLOFENAC SODIUM GEL 100 GM TUBE TOPICAL SCH ×5 (02:19→22:00)
[2021-05-18] MEDS: PANTOPRAZOLE 40 MG/10 ML VIAL IVP SCH ×3 (02:19→20:23)
[2021-05-18] MEDS: guaiFENesin SYRUP 100MG/5ML 200 MG/10 ML CUP PO SCH ×5 (02:19→22:02)
--- NOTE | 2021-05-18 03:35 | XR ---
EXAMINATION TYPE: XR abdomen complete w decub DATE OF EXAM: 05/18/2021 COMPARISON: 05/16/2021 HISTORY: Distended abdomen. Tube placement. TECHNIQUE: 5 views FINDINGS: Multiple film exam shows no heart failure nor confluent pneumonic infiltrate. Costophrenic angles are clear. There is no sign of intestinal obstruction or pneumoperitoneum. Fecal pattern is normal. There are cl ips from cholecystectomy. There is some hypertrophic spurring of the acetabula. There is mild lumbar dextroscoliosis. IMPRESSION: No active cardiopulmonary disease. Nonacute abdomen. There is decrease in the dilated sma ll bowel loops compared to recent exam.
[2021-05-18 06:43] LABS: INR 1.3 (<1.2); Prothrombin Time 13.4 sec (9.0-12.0)
[2021-05-18 06:45] LABS: Ionized Calcium 5.3 mg/dL (4.5-5.3)
[2021-05-18 07:18] LABS: Albumin 2.3 g/dL (3.5-5.0); Phosphorus 4.8 mg/dL (2.5-4.5)
[2021-05-18] MEDS: METOPROLOL TARTRATE 50 MG TAB PO SCH ×2 (09:11→20:23)
[2021-05-18] MEDS: DILTIAZEM ORAL 30 MG TAB PO SCH ×4 (09:12→21:57)
[2021-05-18] MEDS: LOSARTAN 25 MG TAB PO SCH (09:12)
[2021-05-18 09:38] LABS: Anion Gap 13.9 mmol/L (10.00-18.00); BUN/Creat Ratio 8.08 Ratio (12.00-20.00); Blood Urea Nitrogen 10.5 mg/dL (9.0-27.0); Calcium 8.1 mg/dL (8.7-10.3); Carbon Dioxide 18.1 mmol/L (20.0-27.5); Magnesium 1.8 mg/dL (1.5-2.4); Non-African American GFR(CKD) 52.6 (60.0-200.0)
[2021-05-18] MEDS: TAMSULOSIN 0.4 MG CAP.ER.24H PO SCH (09:52)
[2021-05-18] MEDS ORDERED: POTASSIUM BICARBONATE/CIT AC 20 MEQ TABLET.EFF PO ONE (11:00)
[2021-05-18 11:21] LABS: Triglycerides 99.9 mg/dL (0.00-149.00)
[2021-05-18] MEDS: SODIUM CHLORIDE 0.9% 1,000 ML IV SCH (12:00)
--- NOTE | 2021-05-18 14:39 | P.PN ---
Subjective Progress Note Date: 05/18/21 CHIEF COMPLAINT: Abdominal pain HISTORY OF PRESENT ILLNESS: Patient with chronic pseudoobstruction of colon. He currently has fecal management system in with rectal tube. Patient is stooling gas. His abdomen is much softer. Denies any abdominal pain. NG tube with 250 mL out this morning. Denies any abdominal pain. Afebrile. Sodium 148 potassium 3.0 creatinine 1.3 magnesium 1.8 patient scheduled for PICC line placement and TPN Patient seen and examined with Dr. huddleston PHYSICAL EXAM: VITAL SIGNS: Reviewed. GENERAL: Well-developed in no acute distress. HEENT: No sclera icterus. Extraocular movements grossly intact. Moist buccal mucosa. Head is atraumatic, normocephalic. ABDOMEN: Abdomen softer. Decrease in abdominal distention. Nontender NEUROLOGIC: Alert and oriented. Cranial nerves II through XII grossly intact. ASSESSMENT: 1. Chronic pseudoobstruction of colon 2. Hypomagnesemia 3. Hypokalemia 4. UTI PLAN: -Patient is showing improvement -Continue to observe -No surgery planned for tomorrow -Discontinue NG tube -Start clear liquid diet -Continue Reglan -Continue supportive care -Continue to monitor and correct electrolytes -Continue antibiotic for UTI Physician Plate Stacker Hand note has been reviewed by physician. Signing provider agrees with the documented findings, assessment, and plan of care. Objective - Vital Signs Vital signs: Vital Signs Temp 97.7 F 05/18/21 07:23 Pulse 73 05/18/21 07:23 Resp 18 05/18/21 07:23 BP 137/80 05/18/21 07:23 Pulse Ox 96 05/18/21 07:23 Intake & Output 05/17/21 05/18/21 05/18/21 18:59 06:59 18:59 Intake Total 1300 1240 Output Total 4750 1500 1150 Balance -3450 -1500 90 Weight 148.5 kg Intake: Intake, IV Titration 1300 550 Amount Ampicillin-Sulbactam 3 gm 200 100 In Sodium Chloride 0.9% 100 ml @ 200 mls/hr IVPB Q6H [facility] Rx#:[id number] Neostigmine 5 mg In 100 Sodium Chloride 0.9% 50 ml @ Per Protocol IVPB PER PROTOCOL [facility] Rx#: [id number] Sodium Chloride 0.9% 1, 1000 450 000 ml @ 75 mls/hr IV . [id number] [facility] Rx#:[id number] Oral 400 Other 290 Output: Gastric Drainage 800 250 Urine 1250 600 200 Stool 2700 900 700 Other: Voiding Method Indwelling Catheter Indwelling Catheter Indwelling Catheter - Labs CBC & Chem 7: 05/17/21 09:18 05/18/21 05:49 Labs: Abnormal Lab Results - Last 24 Hours (Table) 05/18/21 05/18/21 05/18/21 Range/Units 05:49 05:49 05:49 PT 13.4 H (9.0-12.0) sec INR 1.3 H (<1.2) Sodium 148 H (135-145) mmol/L Potassium 3.0 L (3.5-5.5) mmol/L Chloride 116 H (96-109) mmol/L Carbon Dioxide 18.1 L (20.0-27.5) mmol/L Est GFR (CKD-EPI)NonAf 52.6 L (60.0-200.0) BUN/Creatinine Ratio 8.08 L (12.00-20.00) Ratio Glucose 112 H (70-110) mg/dL Calcium 8.1 L (8.7-10.3) mg/dL Phosphorus 4.8 H (2.5-4.5) mg/dL Albumin 2.3 L (3.5-5.0) g/dL Microbiology - Last 24 Hours (Table) 05/12/21 10:41 Blood Culture - Final Blood No Growth after 144 hours 05/12/21 09:50 Blood Culture - Final Blood No Growth after 144 hours
[2021-05-18] MEDS ORDERED: LIDOCAINE 1% INJ 10MG/ML (20 ML MDV) ONE (14:58)
[2021-05-18] MEDS ORDERED: LIDOCAINE 1% INJ 10MG/ML (20 ML MDV) SQ ONE (15:08)
[2021-05-18] MEDS ORDERED: IOPAMIDOL-370 50ML BTL INJ ONE (15:09)
--- NOTE | 2021-05-18 15:42 | IR ---
PICC LINE PLACEMENT: HISTORY: Infection requiring long-term antibiotic therapy PROCEDURE: Ultrasound and fluoroscopic guidance of PICC line placement. COMPLICATIONS: None ANESTHESIA: 1. 1% Lidocaine locally. FINDINGS/TECHNIQUE: The procedure was explained to the patient. The risks, complications, benefits and alternatives were discussed and any questions were answered. Informed consent was obtained. The patient was placed supine on the fluoroscopic table and prepped and draped in the usual sterile fash ion. Utilizing a 21 gauge needle and sonographic and fluoroscopic guidance, access in the right cep halic vein was achieved and there is placement of a 0.018 guidewire. The vein is patent. A 4-F rodriguez th was placed over the guidewire. The guidewire and dilator were removed and a 4-F. PICC line was pl aced through the sheath with the tip at the level of the SVC. The sheath was removed, the catheter w as flushed and sutured into position. The patient was stable throughout the procedure and remained s table upon discharge from the Department of Radiology. The vein puncture was patent under ultrasound. A joy scale image was obtained to document patency of the vein punctured. All elements of the maximal barrier technique were utilized. FLUOROSCOPY TIME: 0.5 minutes and one images submitted IMPRESSION: Successful PICC line placement under ultrasound and fluoroscopic guidance.
[2021-05-18 16:34] LABS: Glucose,Whole Blood 145 mg/dL (75-99)
[2021-05-18] MEDS ORDERED: MVI, ADULT NO.4 WITH VIT K 10 ML, TRACE (CONC-1ML/DOSE) 1 ML, POTASSIUM ACETATE 20 MEQ,... IV ONE ×6 (17:00)
[2021-05-18] MEDS ORDERED: FAT EMULSION 20% 500 ML in EMPTY BAG 1 BAG IV SCH (18:00)
[2021-05-18] MEDS: traMADol 50 MG TAB PO PRN (20:22)
[2021-05-18 20:47] LABS: Glucose,Whole Blood 150 mg/dL (75-99)
--- NOTE | 2021-05-18 21:00 | P.PN ---
Progress Note - Text Progress Note Date: 05/18/21 Chief Complaint: Abdominal distention History of presenting complaint: This is a 76-year-old patient, who follows with Dr. Barry. Chronic stable medical conditions include atrial fibrillation, CHF, diabetes, GERD, hypertension, pacemaker, depression. Patient normally is a full assist. Patient was recently in the hospital from April 28 through May 04. Patient had. [facility] for left knee pain and was given laxatives and subsequently patient related to ileus. We had put the patient on her NG tube. He was doing well by the time he left. Patient's found to have a atrophic left kidney, mass appears to be attached by a very pleasant between the kidney and the spleen. We'll follow up with urology. Did undergo colonoscopy by Dr. Escobedo. Also seen by Dr. Laz Chacko left knee. Patient was discharged to [facility] rehab at [facility]. Patient now presents stating that since he left. Abdomen was started to be distended again. In got worse. Appetite is poor. Patient been having some liquid bowel movements. Including today. And yesterday. Moderate amount. Patient remains a full assist. No fever no chills. No nausea vomiting. No abdominal pain except for significant distention. Admitted with severe small large bowel ileus/ogilvies. Acute UTI. May 14: Abdomen remains very distended. Liquid diet. Did have a moderate liquid stool earlier today. No nausea vomiting. May 15: Abdomen remains very distended. Liquid diet. Passing liquid stool. We will try a rectal tube and see if it helps. IV Unasyn. Urine culture positive for Proteus mirabilis/ESBL May 16: Abdomen remains very distended. Some liquid stools. Liquid diet. On IV Unasyn. Patient not responding to conservative measures. Spoke to the nurse and a rectal tube was placed yesterday. Did obtain a good amount of gas. Told him to use it again today. Spoke to the pharmacy will give 5 mg dose of neostigmine IV as that sometimes known to help. Discussed with the nurse. Last option would be surgery. We'll also try NG tube to continuous suction. With by mouth medications. For 24 hours at least. May 17: Patient had a very large bowel movement today. Has been on neostimine drip. NG tube. Rectal tube. This morning discussed with Dr. Escobedo. Discussed with patient. May 18: Patient is a rather massive bowel movement and continued after that yesterday and today. Patient receiving TPN and lipids. Started on clear liquids. NG tube discontinued. Discussed with Dr. Escobedo. Abdomen soft. Active Medications Acetaminophen (Acetaminophen Tab 325 Mg Tab) 650 mg PO Q6HR PRN PRN Reason: Fever>101 Last Admin: 05/15/21 22:34 Dose: 650 mg Documented by: Atorvastatin Calcium (Atorvastatin 20 Mg Tab) 20 mg PO HS [facility] Last Admin: 05/18/21 20:23 Dose: 20 mg Documented by: Diclofenac Sodium (Diclofenac Sodium Gel 100 Gm Tube) 4 gm TOPICAL QID [facility]; Protocol Last Admin: 05/18/21 15:44 Dose: 4 gm Documented by: Diltiazem HCl (Diltiazem Oral 30 Mg Tab) 30 mg PO QID [facility] Last Admin: 05/18/21 15:43 Dose: 30 mg Documented by: Guaifenesin (Guaifenesin Syrup 100mg/5ml 200 Mg/10 Ml Cup) 400 mg PO TID [facility] Last Admin: 05/18/21 15:43 Dose: 400 mg Documented by: Ampicillin Sodium/Sulbactam (Sodium 3 gm/ Sodium Chloride) 100 mls @ 200 mls/hr IVPB Q6H [facility] Last Admin: 05/18/21 20:22 Dose: 200 mls/hr Documented by: Sodium Chloride (Saline 0.9%) 1,000 mls @ 75 mls/hr IV .[id number] [facility] Last Admin: 05/18/21 12:00 Dose: Not Given Documented by: Parenteral Vitamin Supplement 10 ml/ Zinc/Copper/Manganese/Selenium 1 ml/ Potassium Acetate 20 meq/ Magnesium Sulfate 1,000 mg/ Calcium Gluconate 1 gm/ Amino Acids/Dextrose 1,033 mls @ 30 mls/hr IV .Q24H [facility]: 05/19/21 16:59 Last Admin: 05/18/21 17:59 Dose: 30 mls/hr Documented by: Parenteral Vitamin Supplement 10 ml/ Zinc/Copper/Manganese/Selenium 1 ml/ Potassium Acetate 20 meq/ Magnesium Sulfate 1,000 mg/ Calcium Gluconate 1 gm/ Amino Acids/Dextrose 1,033 mls @ 90 mls/hr IV .BY DURATION [facility] Potassium Acetate 20 meq/Magnesium Sulfate 1,000 mg/Calcium Gluconate 1 gm/ Amino Acids/Dextrose 1,022 mls @ 90 mls/hr IV .BY DURATION [facility] Fat Emulsion Intravenous 500 (ml/ IV Solution) 500 mls @ 42 mls/hr IV Tu [facility] Last Admin: 05/18/21 17:44 Dose: 42 mls/hr Documented by: Losartan Potassium (Losartan 25 Mg Tab) 12.5 mg PO DAILY [facility] Last Admin: 05/18/21 09:12 Dose: 12.5 mg Documented by: Magnesium Oxide (Magnesium Oxide 400 Mg Tab) 400 mg PO TID [facility] Last Admin: 05/18/21 15:43 Dose: 400 mg Documented by: Metoprolol Tartrate (Metoprolol Tartrate 50 Mg Tab) 100 mg PO BID [facility] Last Admin: 05/18/21 20:23 Dose: 100 mg Documented by: Naloxone HCl (Naloxone 0.4 Mg/Ml 1 Ml Vial) 0.2 mg IV Q2M PRN PRN Reason: Opioid Reversal Ondansetron HCl (Ondansetron 4 Mg/2 Ml Vial) 4 mg IVP Q8HR PRN PRN Reason: Nausea And Vomiting Last Admin: 05/17/21 19:30 Dose: 4 mg Documented by: Pantoprazole Sodium (Pantoprazole 40 Mg/10 Ml Vial) 40 mg IVP BID [facility] Last Admin: 05/18/21 20:23 Dose: 40 mg Documented by: Psyllium Hydrophilic Mucilloid (Psyllium Husk 100% 6 Gm Packet) 6 gm PO BID [facility] Last Admin: 05/18/21 20:23 Dose: 6 gm Documented by: Tamsulosin HCl (Tamsulosin 0.4 Mg Cap.Er.24h) 0.4 mg PO DAILY [facility] Last Admin: 05/18/21 09:52 Dose: Not Given Documented by: Tramadol HCl (Tramadol 50 Mg Tab) 50 mg PO QID PRN PRN Reason: Moderate to Severe Pain Last Admin: 05/18/21 20:22 Dose: 50 mg Documented by: Past medical history to include: Atrial fibrillation, CHF, diabetes, GERD, hypertension, pacemaker, depression. Atrophic left kidney. Mass outside the left kidney being followed by urology. Colonic diverticulosis. Social history: Currently at [facility] rehab Lives at [facility]. Has full-time support. Patient is a full assist to a wheelchair. Can pivot. With help Family history: Father of a heart attack age 58 Physical examination: VITAL SIGNS: 98.4, 90, 18, 1 5787, 96% room air GENERAL: laying in bed, awake, EYES: Pupils equal. Conjunctiva normal. HEENT: External appearance of nose and ears normal, oral cavity grossly normal. NECK: JVD not raised; masses not palpable. HEART: First and second heart sounds are normal; no edema. LUNGS: Respiratory rate normal; clear to auscultation. ABDOMEN: Soft, not distended nontender, liver spleen not palpable, no masses palpable. Rectal tube PSYCH: Alert and oriented x3; mood and affect normal. MUSCULOSKELETAL:No Clubbing/cyanosis;muscles-grossly intact. Evidence of OA INVESTIGATIONS, reviewed in the clinical context: May 18: Sodium 148 potassium 3 creatinine 1.3 May 17: White count 6.8 potassium 3.3 creatinine 1.18 May 16: Potassium 3.3 May 15: Sodium 146 potassium 3.5 creatinine 1.1. Abdominal x-ray film personally reviewed by me: Shows persistent dilated bowels Urine culture positive for: Proteus mirabilis/ESBL May 14: Sodium 142 potassium 3 creatinine 1.14 White count 8.8 hemoglobin 13.2 platelets 252 potassium 3.6 BUN 9 creatinine 1.13 UA positive for leukoesterase WBC Computed tomography scan of the abdomen: Progressive dilatation of the colon up to 11.64 cm with some transition point at the splenic flexure. Small bowel loops also dilated. Sigmoid diverticulosis. Atrophic left kidney. With numerous calculi. Spinal changes. Coronavirus PCR: Not detected EKG tracing personally reviewed by me-atrial flutter fibrillation with a rate of 99 Abdominal x-ray film personally reviewed by me: Greatly distended loops of bowel From previous admission Computed tomography scan of the abdomen pelvis: Overall nonspecific pattern favoring nonobstructive bowel gas pattern. Abrupt transition change mid sigmoid colon without obvious mass. Chronic changes to the left kidney. Small calculi along the course of left ureter. Nondilated. 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 Assessment and plan: -Severe large and small bowel/severe ileus. Recent admission patient had ileus and had responded to laxatives. Incomplete colonoscopy showed diverticulosis.: responded well today to Neostigmine drip. [place] [facility] and same following that. Metamucil. 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 Russell -Left atrophic kidney -Primary osteoarthritis multiple joints bilateral Pain medicine when necessary -Persistent atrial fibrillation, rate controlled Lopressor 100 mg twice a day. Eliquis. Telemetry. Cardizem ER 100 mg a day -BPH Flomax 0.4 mg a day -Essential hypertension Cozaar, Cardizem extended release, Lopressor -Hypokalemia from diarrhea Follow labs -GERD Omeprazole 20 mg twice a day -Colonic diverticulosis, asymptomatic -Chronic medical debility Patient has been a full assist -Acute UTI with cystitis, from Proteus mirabilis/ESBL. IV Unasyn Rectal an NG tube discontinued. Started on clear liquids. Follow labs. Metamucil. TPN and lipids. IV Unasyn.
[2021-05-18] MEDS: LACTATED RINGERS 1,000 ML IV SCH (21:57)
[2021-05-18] MEDS: FAMOTIDINE 20 MG TAB PO SCH (21:57)
[2021-05-19] MEDS: AMPICILLIN-SULBACTAM 3 GM in SODIUM CHLORIDE 0.9% 100 ML IVPB SCH ×4 (02:30→19:34)
[2021-05-19] MEDS: LACTATED RINGERS 1,000 ML IV SCH ×3 (06:15→22:39)
[2021-05-19 07:13] LABS: Glucose,Whole Blood 123 mg/dL (75-99)
[2021-05-19 08:31] LABS: African American GFR (CKD) 63 (>60 ml/min/1.73 sqM); Anion Gap 4 mmol/L; Blood Urea Nitrogen 9 mg/dL (9-20); Carbon Dioxide 20 mmol/L (22-30); Chloride 117 mmol/L (98-107); Glucose 140 mg/dL (74-99); Magnesium 1.8 mg/dL (1.6-2.3); Non-African American GFR(CKD) 55 (>60 ml/min/1.73 sqM); Sodium 141 mmol/L (137-145)
[2021-05-19 08:38] LABS: Potassium 2.7 mmol/L (3.5-5.1)
[2021-05-19] MEDS: METOPROLOL TARTRATE 50 MG TAB PO SCH ×2 (08:55→22:32)
[2021-05-19] MEDS: FAMOTIDINE 20 MG TAB PO SCH ×2 (08:55→22:33)
[2021-05-19] MEDS: TAMSULOSIN 0.4 MG CAP.ER.24H PO SCH (08:55)
[2021-05-19] MEDS: guaiFENesin SYRUP 100MG/5ML 200 MG/10 ML CUP PO SCH ×3 (08:56→22:35)
[2021-05-19] MEDS: LOSARTAN 25 MG TAB PO SCH (08:56)
[2021-05-19] MEDS: MAGNESIUM OXIDE 400 MG TAB PO SCH ×3 (08:56→22:33)
[2021-05-19] MEDS: DICLOFENAC SODIUM GEL 100 GM TUBE TOPICAL SCH ×4 (09:01→22:34)
[2021-05-19] MEDS: DILTIAZEM ORAL 30 MG TAB PO SCH ×4 (09:14→23:01)
[2021-05-19] MEDS: PSYLLIUM HUSK 100% 6 GM PACKET PO SCH ×2 (09:14→22:33)
[2021-05-19] MEDS: POTASSIUM CHLORIDE ER 20 MEQ TAB.ER PO SCH ×2 (09:27→12:02)
[2021-05-19 11:28] LABS: Glucose,Whole Blood 128 mg/dL (75-99)
[2021-05-19] MEDS ORDERED: POTASSIUM BICARBONATE/CIT AC 20 MEQ TABLET.EFF PO ONE ×3 (11:30→21:00)
[2021-05-19] MEDS: traMADol 50 MG TAB PO PRN ×2 (12:17→22:32)
--- NOTE | 2021-05-19 16:06 | P.PN ---
Subjective Progress Note Date: 05/19/21 CHIEF COMPLAINT: Abdominal pain HISTORY OF PRESENT ILLNESS: Patient with chronic pseudoobstruction of colon. He currently has fecal management system in with rectal tube. Patient having stool and flatus. Abdominal distention continues to improve. He has TPN for nutrition support. On clear liquid diet. Afebrile. Potassium 2.7 and being replaced Patient seen and examined with Dr. huddleston PHYSICAL EXAM: VITAL SIGNS: Reviewed. GENERAL: Well-developed in no acute distress. HEENT: No sclera icterus. Extraocular movements grossly intact. Moist buccal mucosa. Head is atraumatic, normocephalic. ABDOMEN: Abdomen softer. Decrease in abdominal distention. Nontender NEUROLOGIC: Alert and oriented. Cranial nerves II through XII grossly intact. ASSESSMENT: 1. Chronic pseudoobstruction of colon 2. Hypomagnesemia 3. Hypokalemia 4. UTI PLAN: -Patient is showing improvement. No surgical intervention planned -Continue to observe -Continue Reglan -Continue supportive care -Continue to monitor and correct electrolytes -Continue clear liquid diet Physician Lifestyle Block Farmer note has been reviewed by physician. Signing provider agrees with the documented findings, assessment, and plan of care. Objective - Vital Signs Vital signs: Vital Signs Temp 97.8 F 05/19/21 14:00 Pulse 72 05/19/21 14:00 Resp 16 05/19/21 14:00 BP 134/74 05/19/21 14:00 Pulse Ox 99 05/19/21 14:00 Intake & Output 05/18/21 05/19/21 05/19/21 18:59 06:59 18:59 Intake Total 1712 Output Total 1950 500 Balance -238 -500 Weight 148.5 kg Intake: Intake, IV Titration 622 Amount Ampicillin-Sulbactam 3 gm 100 In Sodium Chloride 0.9% 100 ml @ 200 mls/hr IVPB Q6H [facility] Rx#:[id number] Fat Emulsion 20% 500 ml 42 In Empty Bag 1 bag @ 42 mls/hr IV Tu [facility] Rx#: [id number] Mvi, Adult No.4 with Vit 30 K 10 ml Trace (Conc-1Ml/ Dose) 1 ml Potassium Acetate 20 meq Magnesium Sulfate mg 1,000 mg Calcium Gluconate 1 gm In Amino Acids 5 %/Dextrose 20 % 1,000 ml @ 30 mls/ hr IV .Q24H [facility] Rx#: [id number] Sodium Chloride 0.9% 1, 450 000 ml @ 75 mls/hr IV . [id number] [facility] Rx#:[id number] Oral 800 Other 290 Output: Gastric Drainage 250 Urine 200 500 Stool 1500 Other: Voiding Method Indwelling Catheter Indwelling Catheter Indwelling Catheter - Labs CBC & Chem 7: 05/17/21 09:18 05/19/21 07:54 Labs: Abnormal Lab Results - Last 24 Hours (Table) 05/18/21 05/18/21 05/19/21 Range/Units 16:32 20:45 07:11 Potassium (3.5-5.1) mmol/L Chloride (98-107) mmol/L Carbon Dioxide (22-30) mmol/L Creatinine (0.66-1.25) mg/dL Glucose (74-99) mg/dL POC Glucose (mg/dL) 145 H 150 H 123 H (75-99) mg/dL Calcium (8.4-10.2) mg/dL 05/19/21 05/19/21 Range/Units 07:54 11:27 Potassium 2.7 L* (3.5-5.1) mmol/L Chloride 117 H (98-107) mmol/L Carbon Dioxide 20 L (22-30) mmol/L Creatinine 1.26 H (0.66-1.25) mg/dL Glucose 140 H (74-99) mg/dL POC Glucose (mg/dL) 128 H (75-99) mg/dL Calcium 8.0 L (8.4-10.2) mg/dL Microbiology - Last 24 Hours (Table) 05/12/21 10:41 Blood Culture - Final Blood No Growth after 144 hours 05/12/21 09:50 Blood Culture - Final Blood No Growth after 144 hours
[2021-05-19 16:52] LABS: Glucose,Whole Blood 179 mg/dL (75-99)
[2021-05-19] MEDS ORDERED: 1: MVI, ADULT NO.4 WITH VIT K 10 ML, TRACE (CONC-1ML/DOSE) 1 ML, POTASSIUM ACETATE 20 ME IV SCH ×6 (17:00)
[2021-05-19] MEDS: [UNRECOGNIZED DRUG - REMARK] IV SCH ×6 (19:32)
--- NOTE | 2021-05-19 20:28 | P.PN ---
Progress Note - Text Progress Note Date: 05/19/21 Chief Complaint: Abdominal distention History of presenting complaint: This is a 76-year-old patient, who follows with Dr. Barry. Chronic stable medical conditions include atrial fibrillation, CHF, diabetes, GERD, hypertension, pacemaker, depression. Patient normally is a full assist. Patient was recently in the hospital from April 28 through May 04. Patient had. [facility] for left knee pain and was given laxatives and subsequently patient related to ileus. We had put the patient on her NG tube. He was doing well by the time he left. Patient's found to have a atrophic left kidney, mass appears to be attached by a very pleasant between the kidney and the spleen. We'll follow up with urology. Did undergo colonoscopy by Dr. Escobedo. Also seen by Dr. Laz Chacko left knee. Patient was discharged to [facility] rehab at [facility]. Patient now presents stating that since he left. Abdomen was started to be distended again. In got worse. Appetite is poor. Patient been having some liquid bowel movements. Including today. And yesterday. Moderate amount. Patient remains a full assist. No fever no chills. No nausea vomiting. No abdominal pain except for significant distention. Admitted with severe small large bowel ileus/ogilvies. Acute UTI.Urine culture positive for Proteus mirabilis/ESBL. IV Unasyn. Patient failed conservative measures for Cecille syndrome. On May 16 patient was given NG tube, rectal tissue and I started the patient on neostigmine drip. Following day patient had a very large bowel movement followed by smaller stools. Abdomen became very soft. TPN lipids started. May 19: Getting TPN and lipids. Abdomen very soft. Tolerated clear liquids. Advance to full liquids. Severe hypokalemia from diarrhea. Replaced. Active Medications Acetaminophen (Acetaminophen Tab 325 Mg Tab) 650 mg PO Q6HR PRN PRN Reason: Fever>101 Last Admin: 05/15/21 22:34 Dose: 650 mg Documented by: Atorvastatin Calcium (Atorvastatin 20 Mg Tab) 20 mg PO HS [facility] Last Admin: 05/18/21 20:23 Dose: 20 mg Documented by: Diclofenac Sodium (Diclofenac Sodium Gel 100 Gm Tube) 4 gm TOPICAL QID [facility]; Protocol Last Admin: 05/19/21 17:27 Dose: Not Given Documented by: Diltiazem HCl (Diltiazem Oral 30 Mg Tab) 30 mg PO QID [facility] Last Admin: 05/19/21 17:26 Dose: 30 mg Documented by: Famotidine (Famotidine 20 Mg Tab) 20 mg PO BID [facility] Last Admin: 05/19/21 08:55 Dose: 20 mg Documented by: Guaifenesin (Guaifenesin Syrup 100mg/5ml 200 Mg/10 Ml Cup) 400 mg PO TID [facility] Last Admin: 05/19/21 17:27 Dose: 400 mg Documented by: Ampicillin Sodium/Sulbactam (Sodium 3 gm/ Sodium Chloride) 100 mls @ 200 mls/hr IVPB Q6H [facility] Last Admin: 05/19/21 19:34 Dose: 200 mls/hr Documented by: Fat Emulsion Intravenous 500 (ml/ IV Solution) 500 mls @ 42 mls/hr IV Tu [facility] Last Admin: 05/18/21 17:44 Dose: 42 mls/hr Documented by: Lactated Ringer's (Lactated Ringers) 1,000 mls @ 125 mls/hr IV .Q8H [facility] Last Admin: 05/19/21 17:31 Dose: 125 mls/hr Documented by: Parenteral Vitamin Supplement 10 ml/ Zinc/Copper/Manganese/Selenium 1 ml/ Potassium Acetate 30 meq/ Magnesium Sulfate 1,000 mg/ Calcium Gluconate 1 gm/ Amino Acids/Dextrose 1,038 mls @ 90 mls/hr IV .BY DURATION [facility] Potassium Acetate 30 meq/Magnesium Sulfate 1,000 mg/Calcium Gluconate 1 gm/ Amino Acids/Dextrose 1,027 mls @ 90 mls/hr IV .BY DURATION [facility] Last Admin: 05/19/21 19:32 Dose: 90 mls/hr Documented by: Losartan Potassium (Losartan 25 Mg Tab) 12.5 mg PO DAILY [facility] Last Admin: 05/19/21 08:56 Dose: 12.5 mg Documented by: Magnesium Oxide (Magnesium Oxide 400 Mg Tab) 400 mg PO TID [facility] Last Admin: 05/19/21 17:27 Dose: 400 mg Documented by: Metoprolol Tartrate (Metoprolol Tartrate 50 Mg Tab) 100 mg PO BID [facility] Last Admin: 05/19/21 08:55 Dose: 100 mg Documented by: Naloxone HCl (Naloxone 0.4 Mg/Ml 1 Ml Vial) 0.2 mg IV Q2M PRN PRN Reason: Opioid Reversal Ondansetron HCl (Ondansetron 4 Mg/2 Ml Vial) 4 mg IVP Q8HR PRN PRN Reason: Nausea And Vomiting Last Admin: 05/17/21 19:30 Dose: 4 mg Documented by: Potassium Bicarbonate (Potassium Bicarbonate/Cit Ac 20 Meq Tablet.Eff) 40 meq PO ONCE ONE Stop: 05/19/21 21:01 Psyllium Hydrophilic Mucilloid (Psyllium Husk 100% 6 Gm Packet) 6 gm PO BID [facility] Last Admin: 05/19/21 09:14 Dose: 6 gm Documented by: Tamsulosin HCl (Tamsulosin 0.4 Mg Cap.Er.24h) 0.4 mg PO DAILY [facility] Last Admin: 05/19/21 08:55 Dose: 0.4 mg Documented by: Tramadol HCl (Tramadol 50 Mg Tab) 50 mg PO QID PRN PRN Reason: Moderate to Severe Pain Last Admin: 05/19/21 12:17 Dose: 50 mg Documented by: Past medical history to include: Atrial fibrillation, CHF, diabetes, GERD, hypertension, pacemaker, depression. Atrophic left kidney. Mass outside the left kidney being followed by urology. Colonic diverticulosis. Social history: Currently at [facility] Lives at [facility]. Has full-time support. Patient is a full assist to a wheelchair. Can pivot. With help Family history: Father of a heart attack age 58 Physical examination: VITAL SIGNS: 97.8, 72, 16, 134/74, 99% room air GENERAL: laying in bed, awake, EYES: Pupils equal. Conjunctiva normal. HEENT: External appearance of nose and ears normal, oral cavity grossly normal. NECK: JVD not raised; masses not palpable. HEART: First and second heart sounds are normal; no edema. LUNGS: Respiratory rate normal; clear to auscultation. ABDOMEN: Soft, not distended nontender, liver spleen not palpable, no masses palpable. Rectal tube PSYCH: Alert and oriented x3; mood and affect normal. MUSCULOSKELETAL:No Clubbing/cyanosis;muscles-grossly intact. Evidence of OA INVESTIGATIONS, reviewed in the clinical context: May 19: Sodium 141 potassium 2.7 creatinine 1.26 May 18: Sodium 148 potassium 3 creatinine 1.3 May 17: White count 6.8 potassium 3.3 creatinine 1.18 May 16: Potassium 3.3 May 15: Sodium 146 potassium 3.5 creatinine 1.1. Abdominal x-ray film personally reviewed by me: Shows persistent dilated bowels Urine culture positive for: Proteus mirabilis/ESBL May 14: Sodium 142 potassium 3 creatinine 1.14 White count 8.8 hemoglobin 13.2 platelets 252 potassium 3.6 BUN 9 creatinine 1.13 UA positive for leukoesterase WBC Computed tomography scan of the abdomen: Progressive dilatation of the colon up to 11.64 cm with some transition point at the splenic flexure. Small bowel loops also dilated. Sigmoid diverticulosis. Atrophic left kidney. With numerous calculi. Spinal changes. Coronavirus PCR: Not detected EKG tracing personally reviewed by me-atrial flutter fibrillation with a rate of 99 Abdominal x-ray film personally reviewed by me: Greatly distended loops of bowel From previous admission Computed tomography scan of the abdomen pelvis: Overall nonspecific pattern favoring nonobstructive bowel gas pattern. Abrupt transition change mid sigmoid colon without obvious mass. Chronic changes to the left kidney. Small calculi along the course of left uret er. Nondilated. 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 Assessment and plan: -Severe large and small bowel/severe ileus. Recent admission patient had ileus and had responded to laxatives. Incomplete colonoscopy showed diverticulosis.: responded well to Neostigmine drip. large BM and same following that. Metamucil. Advanced to full liquids. 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 Russell -Left atrophic kidney -Primary osteoarthritis multiple joints bilateral Pain medicine when necessary -Persistent atrial fibrillation, rate controlled Lopressor 100 mg twice a day. Eliquis. Telemetry. Cardizem ER 100 mg a day -BPH Flomax 0.4 mg a day -Essential hypertension Cozaar, Cardizem extended release, Lopressor -Severe Hypokalemia from diarrhea: Recurrent Replace potassium -GERD Omeprazole 20 mg twice a day -Colonic diverticulosis, asymptomatic -Chronic medical debility Patient has been a full assist -Acute UTI with cystitis, from Proteus mirabilis/ESBL. IV Unasyn - TPN and lipids. Replace potassium. Advance diet to full liquids. Passive therapy. Discussed with patient.
[2021-05-19 21:17] LABS: Glucose,Whole Blood 145 mg/dL (75-99)
[2021-05-19] MEDS: ATORVASTATIN 20 MG TAB PO SCH (22:32)
[2021-05-20] MEDS: AMPICILLIN-SULBACTAM 3 GM in SODIUM CHLORIDE 0.9% 100 ML IVPB SCH ×4 (01:25→20:26)
[2021-05-20] MEDS: traMADol 50 MG TAB PO PRN ×2 (05:00→13:48)
[2021-05-20] MEDS: LACTATED RINGERS 1,000 ML IV SCH ×3 (05:01→20:27)
[2021-05-20] MEDS: [UNRECOGNIZED DRUG - REMARK] IV SCH ×12 (06:18→17:20)
[2021-05-20 07:18] LABS: Glucose,Whole Blood 180 mg/dL (75-99)
[2021-05-20] MEDS: PSYLLIUM HUSK 100% 6 GM PACKET PO SCH ×2 (08:18→20:28)
[2021-05-20 08:36] LABS: African American GFR (CKD) 76 (>60 ml/min/1.73 sqM); Anion Gap 4 mmol/L; Blood Urea Nitrogen 11 mg/dL (9-20); Calcium 7.9 mg/dL (8.4-10.2); Carbon Dioxide 24 mmol/L (22-30); Chloride 110 mmol/L (98-107); Glucose 144 mg/dL (74-99); Magnesium 1.9 mg/dL (1.6-2.3); Non-African American GFR(CKD) 66 (>60 ml/min/1.73 sqM); Phosphorus 2.3 mg/dL (2.5-4.5); Potassium 3.7 mmol/L (3.5-5.1); Sodium 138 mmol/L (137-145)
[2021-05-20] MEDS: LOSARTAN 25 MG TAB PO SCH (08:59)
[2021-05-20] MEDS: TAMSULOSIN 0.4 MG CAP.ER.24H PO SCH (08:59)
[2021-05-20] MEDS: FAMOTIDINE 20 MG TAB PO SCH ×2 (08:59→20:27)
[2021-05-20] MEDS: DILTIAZEM ORAL 30 MG TAB PO SCH ×4 (08:59→20:26)
[2021-05-20] MEDS: MAGNESIUM OXIDE 400 MG TAB PO SCH ×3 (08:59→20:27)
[2021-05-20] MEDS: METOPROLOL TARTRATE 50 MG TAB PO SCH ×2 (08:59→20:27)
[2021-05-20] MEDS: DICLOFENAC SODIUM GEL 100 GM TUBE TOPICAL SCH ×4 (09:04→20:27)
[2021-05-20] MEDS: guaiFENesin SYRUP 100MG/5ML 200 MG/10 ML CUP PO SCH ×4 (09:19→20:36)
[2021-05-20 11:29] LABS: Glucose,Whole Blood 126 mg/dL (75-99)
--- NOTE | 2021-05-20 13:48 | P.PN ---
Subjective Progress Note Date: 05/20/21 CHIEF COMPLAINT: Abdominal pain HISTORY OF PRESENT ILLNESS: Patient with chronic pseudoobstruction of colon. He currently has fecal management system in with rectal tube. Patient having stool and flatus. Abdominal distention continues to improve. Medicine service is advancing diet. Currently on full liquids. And will be advanced to ground. TPN is scheduled to be discontinued. Patient denies any abdominal pain. Afebrile potassium improved at 3.6 magnesium 1.9 Patient seen and examined with Dr. huddleston PHYSICAL EXAM: VITAL SIGNS: Reviewed. GENERAL: Well-developed in no acute distress. HEENT: No sclera icterus. Extraocular movements grossly intact. Moist buccal mucosa. Head is atraumatic, normocephalic. ABDOMEN: Abdomen softer. Decrease in abdominal distention. Nontender NEUROLOGIC: Alert and oriented. Cranial nerves II through XII grossly intact. ASSESSMENT: 1. Chronic pseudoobstruction of colon 2. Hypomagnesemia 3. Hypokalemia 4. UTI PLAN: -Patient is showing improvement. No surgical intervention planned -Continue to observe -Continue Reglan -Continue supportive care -Continue to monitor and correct electrolytes -Okay to advance diet to ground Physician Sales Attendant note has been reviewed by physician. Signing provider agrees with the documented findings, assessment, and plan of care. Objective - Vital Signs Vital signs: Vital Signs Temp 97.8 F 05/20/21 07:25 Pulse 66 05/20/21 07:25 Resp 20 05/20/21 07:25 BP 148/82 05/20/21 07:25 Pulse Ox 96 05/20/21 07:25 Intake & Output 05/19/21 05/20/21 05/20/21 18:59 06:59 18:59 Intake Total 1306 969 180 Output Total 950 750 150 Balance 356 219 30 Weight 148.5 kg Intake: Intake, IV Titration 856 969 Amount Ampicillin-Sulbactam 3 gm 100 In Sodium Chloride 0.9% 100 ml @ 200 mls/hr IVPB Q6H [facility] Rx#:[id number] Fat Emulsion 20% 500 ml 336 In Empty Bag 1 bag @ 42 mls/hr IV Tu [facility] Rx#: [id number] Mvi, Adult No.4 with Vit 150 K 10 ml Trace (Conc-1Ml/ Dose) 1 ml Potassium Acetate 20 meq Magnesium Sulfate mg 1,000 mg Calcium Gluconate 1 gm In Amino Acids 5 %/Dextrose 20 % 1,000 ml @ 30 mls/ hr IV .Q24H [facility] Rx#: [id number] Mvi, Adult No.4 with Vit 270 K 10 ml Trace (Conc-1Ml/ Dose) 1 ml Potassium Acetate 20 meq Magnesium Sulfate mg 1,000 mg Calcium Gluconate 1 gm In Amino Acids 5 %/Dextrose 20 % 1,000 ml @ 90 mls/ hr IV .BY DURATION [facility] Rx #:[id number] Potassium Acetate 30 meq 969 Magnesium Sulfate mg 1, 000 mg Calcium Gluconate 1 gm In Amino Acids 5 %/ Dextrose 20 % 1,000 ml @ 90 mls/hr IV .BY DURATION [facility] Rx#:[id number] Oral 450 180 Output: Urine 750 150 Stool 950 Other: Voiding Method Indwelling Catheter Indwelling Catheter Indwelling Catheter - Labs CBC & Chem 7: 05/17/21 09:18 05/20/21 07:57 Labs: Abnormal Lab Results - Last 24 Hours (Table) 05/19/21 05/19/21 05/20/21 Range/Units 16:50 21:16 07:16 Chloride (98-107) mmol/L Glucose (74-99) mg/dL POC Glucose (mg/dL) 179 H 145 H 180 H (75-99) mg/dL Calcium (8.4-10.2) mg/dL Phosphorus (2.5-4.5) mg/dL 05/20/21 05/20/21 Range/Units 07:57 11:27 Chloride 110 H (98-107) mmol/L Glucose 144 H (74-99) mg/dL POC Glucose (mg/dL) 126 H (75-99) mg/dL Calcium 7.9 L (8.4-10.2) mg/dL Phosphorus 2.3 L (2.5-4.5) mg/dL
[2021-05-20 16:18] LABS: Glucose,Whole Blood 120 mg/dL (75-99)
--- NOTE | 2021-05-20 17:14 | P.PN ---
Progress Note - Text Progress Note Date: 05/20/21 Chief Complaint: Abdominal distention History of presenting complaint: This is a 76-year-old patient, who follows with Dr. Barry. Chronic stable medical conditions include atrial fibrillation, CHF, diabetes, GERD, hypertension, pacemaker, depression. Patient normally is a full assist. Patient was recently in the hospital from April 28 through May 04. Patient had. [facility] for left knee pain and was given laxatives and subsequently patient related to ileus. We had put the patient on her NG tube. He was doing well by the time he left. Patient's found to have a atrophic left kidney, mass appears to be attached by a very pleasant between the kidney and the spleen. We'll follow up with urology. Did undergo colonoscopy by Dr. Escobedo. Also seen by Dr. Laz Chacko left knee. Patient was discharged to [facility] rehab at [facility]. Patient now presents stating that since he left. Abdomen was started to be distended again. In got worse. Appetite is poor. Patient been having some liquid bowel movements. Including today. And yesterday. Moderate amount. Patient remains a full assist. No fever no chills. No nausea vomiting. No abdominal pain except for significant distention. Admitted with severe small large bowel ileus/ogilvies. Acute UTI.Urine culture positive for Proteus mirabilis/ESBL. IV Unasyn. Patient failed conservative measures for Cecille syndrome. On May 16 patient was given NG tube, rectal tissue and I started the patient on neostigmine drip. Following day patient had a very large bowel movement followed by smaller stools. Abdomen became very soft. TPN lipids started. May 19: Getting TPN and lipids. Abdomen very soft. Tolerated clear liquids. Advance to full liquids. Severe hypokalemia from diarrhea. Replaced. May 20: Tolerated full liquid diet. Advance to ground diet. FMS system in place. Abdomen soft. TPN lipids will be discontinued today. Active Medications Acetaminophen (Acetaminophen Tab 325 Mg Tab) 650 mg PO Q6HR PRN PRN Reason: Fever>101 Last Admin: 05/15/21 22:34 Dose: 650 mg Documented by: Atorvastatin Calcium (Atorvastatin 20 Mg Tab) 20 mg PO HS [facility] Last Admin: 05/19/21 22:32 Dose: 20 mg Documented by: Diclofenac Sodium (Diclofenac Sodium Gel 100 Gm Tube) 4 gm TOPICAL QID [facility]; Protocol Last Admin: 05/20/21 13:43 Dose: Not Given Documented by: Diltiazem HCl (Diltiazem Oral 30 Mg Tab) 30 mg PO QID [facility] Last Admin: 05/20/21 13:44 Dose: 30 mg Documented by: Famotidine (Famotidine 20 Mg Tab) 20 mg PO BID [facility] Last Admin: 05/20/21 08:59 Dose: 20 mg Documented by: Guaifenesin (Guaifenesin Syrup 100mg/5ml 200 Mg/10 Ml Cup) 400 mg PO TID [facility] Last Admin: 05/20/21 09:19 Dose: Not Given Documented by: Ampicillin Sodium/Sulbactam (Sodium 3 gm/ Sodium Chloride) 100 mls @ 200 mls/hr IVPB Q6H [facility] Last Admin: 05/20/21 13:44 Dose: 200 mls/hr Documented by: Fat Emulsion Intravenous 500 (ml/ IV Solution) 500 mls @ 42 mls/hr IV Tu [facility] Last Admin: 05/18/21 17:44 Dose: 42 mls/hr Documented by: Lactated Ringer's (Lactated Ringers) 1,000 mls @ 125 mls/hr IV .Q8H [facility] Last Admin: 05/20/21 13:44 Dose: 125 mls/hr Documented by: Parenteral Vitamin Supplement 10 ml/ Zinc/Copper/Manganese/Selenium 1 ml/ Potassium Acetate 30 meq/ Magnesium Sulfate 1,000 mg/ Calcium Gluconate 1 gm/ Amino Acids/Dextrose 1,038 mls @ 90 mls/hr IV .BY DURATION [facility] Stop: 05/20/21 18:59 Potassium Acetate 30 meq/Magnesium Sulfate 1,000 mg/Calcium Gluconate 1 gm/ Amino Acids/Dextrose 1,027 mls @ 90 mls/hr IV .BY DURATION [facility] Stop: 05/20/21 18:59 Last Admin: 05/20/21 06:18 Dose: 90 mls/hr Documented by: Parenteral Vitamin Supplement 10 ml/ Zinc/Copper/Manganese/Selenium 1 ml/ Amino Ac/Electrol/Dextrose/Calcium 1,011 mls @ 90 mls/hr IV .BY DURATION [facility] Amino Ac/Electrol/Dextrose/Calcium (Clinimix E 5%-20% Solution) 1,000 mls @ 90 mls/hr IV .BY DURATION [facility] Losartan Potassium (Losartan 25 Mg Tab) 12.5 mg PO DAILY [facility] Last Admin: 05/20/21 08:59 Dose: 12.5 mg Documented by: Magnesium Oxide (Magnesium Oxide 400 Mg Tab) 400 mg PO TID [facility] Last Admin: 05/20/21 08:59 Dose: 400 mg Documented by: Metoprolol Tartrate (Metoprolol Tartrate 50 Mg Tab) 100 mg PO BID [facility] Last Admin: 05/20/21 08:59 Dose: 100 mg Documented by: Naloxone HCl (Naloxone 0.4 Mg/Ml 1 Ml Vial) 0.2 mg IV Q2M PRN PRN Reason: Opioid Reversal Ondansetron HCl (Ondansetron 4 Mg/2 Ml Vial) 4 mg IVP Q8HR PRN PRN Reason: Nausea And Vomiting Last Admin: 05/17/21 19:30 Dose: 4 mg Documented by: Psyllium Hydrophilic Mucilloid (Psyllium Husk 100% 6 Gm Packet) 6 gm PO BID [facility] Last Admin: 05/20/21 08:18 Dose: Not Given Documented by: Tamsulosin HCl (Tamsulosin 0.4 Mg Cap.Er.24h) 0.4 mg PO DAILY [facility] Last Admin: 05/20/21 08:59 Dose: 0.4 mg Documented by: Tramadol HCl (Tramadol 50 Mg Tab) 50 mg PO QID PRN PRN Reason: Moderate to Severe Pain Last Admin: 05/20/21 13:48 Dose: 50 mg Documented by: Past medical history to include: Atrial fibrillation, CHF, diabetes, GERD, hypertension, pacemaker, depression. Atrophic left kidney. Mass outside the left kidney being followed by urology. Colonic diverticulosis. Social history: Currently at [facility] Lives at [facility]. Has full-time support. Patient is a full assist to a wheelchair. Can pivot. With help Family history: Father of a heart attack age 58 Physical examination: VITAL SIGNS: 98, 69, 18, 127/61, 97% room air GENERAL: Reclining in bed, awake, EYES: Pupils equal. Conjunctiva normal. HEENT: External appearance of nose and ears normal, oral cavity grossly normal. NECK: JVD not raised; masses not palpable. HEART: First and second heart sounds are normal; no edema. LUNGS: Respiratory rate normal; clear to auscultation. ABDOMEN: Soft, not distended nontender, liver spleen not palpable, no masses palpable. Fecal management system in place PSYCH: Alert and oriented x3; mood and affect normal. MUSCULOSKELETAL:No Clubbing/cyanosis;muscles-grossly intact. Evidence of OA INVESTIGATIONS, reviewed in the clinical context: May 20: Potassium 3.7 creatinine 1.08 Urine culture positive for: Proteus mirabilis/ESBL White count 8.8 hemoglobin 13.2 platelets 252 potassium 3.6 BUN 9 creatinine 1.13 UA positive for leukoesterase WBC Computed tomography scan of the abdomen: Progressive dilatation of the colon up to 11.64 cm with some transition point at the splenic flexure. Small bowel loops also dilated. Sigmoid diverticulosis. Atrophic left kidney. With numerous calculi. Spinal changes. Coronavirus PCR: Not detected EKG tracing personally reviewed by me-atrial flutter fibrillation with a rate of 99 Abdominal x-ray film personally reviewed by me: Greatly distended loops of bowel From previous admission Computed tomography scan of the abdomen pelvis: Overall nonspecific pattern favoring nonobstructive bowel gas pattern. Abrupt transition change mid sigmoid colon without obvious mass. Chronic changes to the left kidney. Small calculi along the course of left ureter. Nondilated. 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 Assessment and plan: -Severe large and small bowel/severe ileus. Recent admission patient had ileus and had responded to laxatives. Incomplete colonoscopy showed diverticulosis.: Improved responded well to Neostigmine drip. large BM and same following that. Metamucil. 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 Russell -Left atrophic kidney -Primary osteoarthritis multiple joints bilateral Pain medicine when necessary -Persistent atrial fibrillation, rate controlled Lopressor 100 mg twice a day. Eliquis. Telemetry. Cardizem ER 100 mg a day -BPH Flomax 0.4 mg a day -Essential hypertension Cozaar, Cardizem extended release, Lopressor -Severe Hypokalemia from diarrhea: Recurrent Replace potassium -GERD Omeprazole 20 mg twice a day -Colonic diverticulosis, asymptomatic -Chronic medical debility Patient has been a full assist -Acute UTI with cystitis, from Proteus mirabilis/ESBL. IV Unasyn - TPN and lipids to be weaned off today.. Add Neutra-Phos. Advance diet to ground diet. Fecal management system in place.
[2021-05-20] MEDS: POTAS-SOD-PHOS 278-164-250 MG 1 EACH PACKET PO SCH ×2 (18:28→20:27)
[2021-05-20] MEDS ORDERED: 1: MVI, ADULT NO.4 WITH VIT K 10 ML, TRACE (CONC-1ML/DOSE) 1 ML in AMINO ACID 5%-D20W+LY IV SCH ×3 (19:00)
[2021-05-20] MEDS: ATORVASTATIN 20 MG TAB PO SCH (20:27)
[2021-05-21] MEDS: AMPICILLIN-SULBACTAM 3 GM in SODIUM CHLORIDE 0.9% 100 ML IVPB SCH ×4 (01:08→19:50)
[2021-05-21] MEDS: traMADol 50 MG TAB PO PRN ×2 (02:06→19:59)
[2021-05-21 04:21] LABS: African American GFR (CKD) 80 (>60 ml/min/1.73 sqM); Anion Gap 4 mmol/L; Blood Urea Nitrogen 11 mg/dL (9-20); Calcium 8.3 mg/dL (8.4-10.2); Carbon Dioxide 23 mmol/L (22-30); Chloride 111 mmol/L (98-107); Glucose 120 mg/dL (74-99); Magnesium 1.9 mg/dL (1.6-2.3); Non-African American GFR(CKD) 69 (>60 ml/min/1.73 sqM); Potassium 3.7 mmol/L (3.5-5.1); Sodium 138 mmol/L (137-145)
[2021-05-21] MEDS: LACTATED RINGERS 1,000 ML IV SCH ×3 (05:11→23:08)
[2021-05-21 07:18] LABS: Glucose,Whole Blood 104 mg/dL (75-99)
[2021-05-21] MEDS: guaiFENesin SYRUP 100MG/5ML 200 MG/10 ML CUP PO SCH ×3 (09:19→23:08)
[2021-05-21] MEDS: LOSARTAN 25 MG TAB PO SCH (09:20)
[2021-05-21] MEDS: TAMSULOSIN 0.4 MG CAP.ER.24H PO SCH (09:20)
[2021-05-21] MEDS: MAGNESIUM OXIDE 400 MG TAB PO SCH ×3 (09:20→19:52)
[2021-05-21] MEDS: DILTIAZEM ORAL 30 MG TAB PO SCH ×4 (09:20→19:52)
[2021-05-21] MEDS: PSYLLIUM HUSK 100% 6 GM PACKET PO SCH ×2 (09:20→19:50)
[2021-05-21] MEDS: METOPROLOL TARTRATE 50 MG TAB PO SCH ×2 (09:20→19:52)
[2021-05-21] MEDS: FAMOTIDINE 20 MG TAB PO SCH ×2 (09:20→19:50)
[2021-05-21] MEDS: POTAS-SOD-PHOS 278-164-250 MG 1 EACH PACKET PO SCH ×3 (09:20→19:52)
--- NOTE | 2021-05-21 09:34 | P.PN ---
Progress Note - Text Progress Note Date: 05/21/21 Patient feels better. He is still having problems. On exam vital signs are stable. Abdomen soft. Resolving colonic ileus. Patient will continue receive supportive care.
[2021-05-21] MEDS: DICLOFENAC SODIUM GEL 100 GM TUBE TOPICAL SCH ×4 (10:10→22:57)
[2021-05-21 11:42] LABS: Glucose,Whole Blood 112 mg/dL (75-99)
[2021-05-21 16:46] LABS: Glucose,Whole Blood 129 mg/dL (75-99)
[2021-05-21] MEDS: ACETAMINOPHEN TAB 325 MG TAB PO PRN (19:50)
[2021-05-21] MEDS: ATORVASTATIN 20 MG TAB PO SCH (19:52)
[2021-05-21 20:40] LABS: Glucose,Whole Blood 125 mg/dL (75-99)
[2021-05-22] MEDS: LACTATED RINGERS 1,000 ML IV SCH (03:02)
[2021-05-22] MEDS: AMPICILLIN-SULBACTAM 3 GM in SODIUM CHLORIDE 0.9% 100 ML IVPB SCH (03:02)
[2021-05-22 04:34] LABS: African American GFR (CKD) 89 (>60 ml/min/1.73 sqM); Anion Gap 6 mmol/L; Blood Urea Nitrogen 10 mg/dL (9-20); Calcium 8.1 mg/dL (8.4-10.2); Carbon Dioxide 23 mmol/L (22-30); Chloride 110 mmol/L (98-107); Glucose 112 mg/dL (74-99); Magnesium 1.8 mg/dL (1.6-2.3); Non-African American GFR(CKD) 77 (>60 ml/min/1.73 sqM); Phosphorus 3.6 mg/dL (2.5-4.5); Potassium 3.7 mmol/L (3.5-5.1); Sodium 139 mmol/L (137-145)
[2021-05-22] MEDS: MAGNESIUM OXIDE 400 MG TAB PO SCH ×3 (07:38→20:41)
[2021-05-22] MEDS: METOPROLOL TARTRATE 50 MG TAB PO SCH ×2 (07:38→20:41)
[2021-05-22] MEDS: TAMSULOSIN 0.4 MG CAP.ER.24H PO SCH (07:38)
[2021-05-22] MEDS: LOSARTAN 25 MG TAB PO SCH (07:38)
[2021-05-22] MEDS: DILTIAZEM ORAL 30 MG TAB PO SCH ×4 (07:38→20:41)
[2021-05-22] MEDS: FAMOTIDINE 20 MG TAB PO SCH ×2 (07:38→20:41)
[2021-05-22] MEDS: guaiFENesin SYRUP 100MG/5ML 200 MG/10 ML CUP PO SCH ×3 (07:39→20:45)
[2021-05-22] MEDS: POTAS-SOD-PHOS 278-164-250 MG 1 EACH PACKET PO SCH ×3 (07:39→20:41)
[2021-05-22] MEDS: PSYLLIUM HUSK 100% 6 GM PACKET PO SCH ×2 (07:39→20:41)
[2021-05-22] MEDS: DICLOFENAC SODIUM GEL 100 GM TUBE TOPICAL SCH ×4 (07:42→20:41)
--- NOTE | 2021-05-22 15:52 | P.PN ---
Subjective Progress Note Date: 05/22/21 CHIEF COMPLAINT: Colonic distention HISTORY OF PRESENT ILLNESS: The patient is a 76-year-old male presented with colonic distention due to pseudo-colonic obstruction. Patient responded to pharmacotherapy. He is passing flatus. No reports of abdominal pain. He reports of moving around with PT but unable to walk by himself. ROS: No fevers or chills. Morbid obesity, BMI 42.0. Having bowel movements. PHYSICAL EXAM: VITAL SIGNS: Reviewed CONSTITUTIONAL: Well developed and in no acute distress. EYES: Conjuctivae without sclera icterus. Extraocular movements grossly intact. HEAD, EARS, NOSE, THROAT: Moist buccal mucosa. Head is atraumatic, normocephalic. Hears conversational speech. No nasal drainage. RESPIRATORY: Non-labored respirations and equal bilateral excursions. CARDIOVASCULAR: Palpable 2+ radial pulses. ABDOMEN: Obese, distended. MUSCULOSKELETAL: No gross deformity of the lower extremities noted. No clubbing. No cyanosis. SKIN: Good skin turgor. Well perfused. NEUROLOGIC: Cranial nerves II through XII grossly intact. No focal or lateralizing signs. PSYCH: Appropriate affect. Alert and oriented to person, place and time. CLINICAL LABS: Reviewed. Sodium potassium at 137 and 3.7 respectively within normal limits. Creatinine normal 0.95 ASSESSMENT: 1. Ileus PLAN: 1. Continue pharmacotherapy 2. Diet as tolerated 3. Ambulation encouraged. Objective - Vital Signs Vital signs: Vital Signs Temp 97.0 F L 05/22/21 07:35 Pulse 77 05/22/21 07:35 Resp 18 05/22/21 07:35 BP 161/92 05/22/21 07:35 Pulse Ox 94 L 05/22/21 07:35 Intake & Output 05/21/21 05/22/21 05/22/21 18:59 06:59 18:59 Intake Total 1280 160 Output Total 800 3000 Balance 480 -3000 160 Weight 148.5 kg Intake: Intake, IV Titration 160 Amount Lactated Ringers 1,000 ml 160 @ 20 mls/hr IV .Q24H [facility] Rx#:[id number] Oral 1280 Output: Urine 800 1150 Stool 950 Urine/Stool Mix 900 Other: Voiding Method Indwelling Catheter Indwelling Catheter Indwelling Catheter - Labs CBC & Chem 7: 05/17/21 09:05/22/21 03:59 Labs: Abnormal Lab Results - Last 24 Hours (Table) 05/21/21 05/21/21 05/22/21 Range/Units 16:45 20:38 03:59 Chloride 110 H (98-107) mmol/L Glucose 112 H (74-99) mg/dL POC Glucose (mg/dL) 129 H 125 H (75-99) mg/dL Calcium 8.1 L (8.4-10.2) mg/dL
[2021-05-22] MEDS: ATORVASTATIN 20 MG TAB PO SCH (20:41)
--- NOTE | 2021-05-22 20:44 | P.PN ---
Subjective Progress Note Date: 05/21/21 76-year-old patient, who follows with Dr. Barry. Chronic stable medical conditions include atrial fibrillation, CHF, diabetes, GERD, hypertension, pacemaker, depression. Patient normally is a full assist. Patient was recently in the hospital from April 28 through May 04. Patient had. [facility] for left knee pain and was given laxatives and subsequently patient related to ileus. We had put the patient on her NG tube. He was doing well by the time he left. Patient's found to have a atrophic left kidney, mass appears to be attached by a very pleasant between the kidney and the spleen. We'll follow up with urology. Did undergo colonoscopy by Dr. Escobedo. Also seen by Dr. Laz Chacko left knee. Patient was discharged to [facility] rehab at [facility]. Patient now presents stating that since he left. Abdomen was started to be distended again. In got worse. Appetite is poor. Patient been having some liquid bowel movements. Including today. And yesterday. Moderate amount. Patient remains a full assist. No fever no chills. No nausea vomiting. No a bdominal pain except for significant distention. Admitted with severe small large bowel ileus/ogilvies. Acute UTI.Urine culture positive for Proteus mirabilis/ESBL. IV Unasyn. Patient failed conservative measures for Cecille syndrome. On May 16 patient was given NG tube, rectal tissue and I started the patient on neostigmine drip. Following day patient had a very large bowel movement followed by smaller stools. Abdomen became very soft. TPN lipids started. May 19: Getting TPN and lipids. Abdomen very soft. Tolerated clear liquids. Advance to full liquids. Severe hypokalemia from diarrhea. Replaced. May 20: Tolerated full liquid diet. Advance to ground diet. FMS system in place. Abdomen soft. TPN lipids will be discontinued today. Objective - Vital Signs Vital signs: Vital Signs Temp 97.6 F 05/21/21 08:00 Pulse 75 05/21/21 08:00 Resp 16 05/21/21 08:00 BP 153/75 05/21/21 08:00 Pulse Ox 98 05/21/21 08:00 Intake & Output 05/20/21 05/21/21 05/21/21 18:59 06:59 18:59 Intake Total 360 Output Total 450 450 Balance -90 -450 Intake: Oral 360 Output: Urine 450 450 Other: Voiding Method Indwelling Catheter Indwelling Catheter Indwelling Catheter - Exam GENERAL: Reclining in bed, awake, EYES: Pupils equal. Conjunctiva normal. HEENT: External appearance of nose and ears normal, oral cavity grossly normal. NECK: JVD not raised; masses not palpable. HEART: First and second heart sounds are normal; no edema. LUNGS: Respiratory rate normal; clear to auscultation. ABDOMEN: Soft, not distended nontender, liver spleen not palpable, no masses palpable. Fecal management system in place PSYCH: Alert and oriented x3; mood and affect normal. MUSCULOSKELETAL:No Clubbing/cyanosis;muscles-grossly intact. Evidence of OA - Labs CBC & Chem 7: 05/17/21 09:18 05/22/21 03:59 Labs: Abnormal Lab Results - Last 24 Hours (Table) 05/20/21 05/21/21 05/21/21 Range/Units 16:16 03:51 07:17 Chloride 111 H (98-107) mmol/L Glucose 120 H (74-99) mg/dL POC Glucose (mg/dL) 120 H 104 H (75-99) mg/dL Calcium 8.3 L (8.4-10.2) mg/dL 05/21/21 Range/Units 11:41 Chloride (98-107) mmol/L Glucose (74-99) mg/dL POC Glucose (mg/dL) 112 H (75-99) mg/dL Calcium (8.4-10.2) mg/dL Assessment and Plan Assessment: 1. Severe large and small bowel/severe ileus. Recent admission patient had ileus and had responded to laxatives. Incomplete colonoscopy showed diverticulosis.: Improved Advanced to ground diet TPN and lipids weaned off 2. 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 Russell - Left atrophic kidney 3. Primary osteoarthritis multiple joints bilateral Pain medicine when necessary 4. Persistent atrial fibrillation, rate controlled Lopressor 100 mg twice a day. Eliquis. Telemetry. Cardizem ER 100 mg a day 5. BPH Flomax 0.4 mg a day 6. Essential hypertension Cozaar, Cardizem extended release, Lopressor 7. Severe Hypokalemia from diarrhea: Recurrent Replace potassium 8. GERD Omeprazole 20 mg twice a day 9. Colonic diverticulosis, asymptomatic 10. Chronic medical debility Patient has been a full assist 11. Acute UTI with cystitis, from Proteus mirabilis/ESBL. IV Unasyn Plan for discharge to skilled rehab once stable
--- NOTE | 2021-05-22 20:45 | P.PN ---
Subjective Progress Note Date: 05/22/21 76-year-old patient, who follows with Dr. Barry. Chronic stable medical conditions include atrial fibrillation, CHF, diabetes, GERD, hypertension, pacemaker, depression. Patient normally is a full assist. Patient was recently in the hospital from April 28 through May 04. Patient had. [facility] for left knee pain and was given laxatives and subsequently patient related to ileus. We had put the patient on her NG tube. He was doing well by the time he left. Patient's found to have a atrophic left kidney, mass appears to be attached by a very pleasant between the kidney and the spleen. We'll follow up with urology. Did undergo colonoscopy by Dr. Escobedo. Also seen by Dr. Laz Chacko left knee. Patient was discharged to [facility] rehab at [facility]. Patient now presents stating that since he left. Abdomen was started to be distended again. In got worse. Appetite is poor. Patient been having some liquid bowel movements. Including today. And yesterday. Moderate amount. Patient remains a full assist. No fever no chills. No nausea vomiting. No a bdominal pain except for significant distention. Admitted with severe small large bowel ileus/ogilvies. Acute UTI.Urine culture positive for Proteus mirabilis/ESBL. IV Unasyn. Patient failed conservative measures for Cecille syndrome. On May 16 patient was given NG tube, rectal tissue and I started the patient on neostigmine drip. Following day patient had a very large bowel movement followed by smaller stools. Abdomen became very soft. TPN lipids started. May 19: Getting TPN and lipids. Abdomen very soft. Tolerated clear liquids. Advance to full liquids. Severe hypokalemia from diarrhea. Replaced. May 20: Tolerated full liquid diet. Advance to ground diet. Patient is being followed by general surgery and is recommended to advance diet as tolerated and encourage ambulation Vital signs are reviewed and remained stable Plan is for patient to be transferred to skilled rehab once clinically stable and cleared by surgery Objective - Vital Signs Vital signs: Vital Signs Temp 97.0 F L 05/22/21 07:35 Pulse 77 05/22/21 07:35 Resp 18 05/22/21 07:35 BP 161/92 05/22/21 07:35 Pulse Ox 94 L 05/22/21 07:35 Intake & Output 05/21/21 05/22/21 05/22/21 18:59 06:59 18:59 Intake Total 1280 160 Output Total 800 3000 Balance 480 -3000 160 Weight 148.5 kg Intake: Intake, IV Titration 160 Amount Lactated Ringers 1,000 ml 160 @ 20 mls/hr IV .Q24H [facility] Rx#:[id number] Oral 1280 Output: Urine 800 1150 Stool 950 Urine/Stool Mix 900 Other: Voiding Method Indwelling Catheter Indwelling Catheter Indwelling Catheter - Exam GENERAL: Reclining in bed, awake, EYES: Pupils equal. Conjunctiva normal. HEENT: External appearance of nose and ears normal, oral cavity grossly normal. NECK: JVD not raised; masses not palpable. HEART: First and second heart sounds are normal; no edema. LUNGS: Respiratory rate normal; clear to auscultation. ABDOMEN: Soft, not distended nontender, liver spleen not palpable, no masses palpable. Fecal management system in place PSYCH: Alert and oriented x3; mood and affect normal. MUSCULOSKELETAL:No Clubbing/cyanosis;muscles-grossly intact. Evidence of OA - Labs CBC & Chem 7: 05/17/21 09:18 05/22/21 03:59 Labs: Abnormal Lab Results - Last 24 Hours (Table) 05/21/21 05/21/21 05/22/21 Range/Units 16:45 20:38 03:59 Chloride 110 H (98-107) mmol/L Glucose 112 H (74-99) mg/dL POC Glucose (mg/dL) 129 H 125 H (75-99) mg/dL Calcium 8.1 L (8.4-10.2) mg/dL Assessment and Plan Assessment: 1. Severe large and small bowel/severe ileus. Recent admission patient had ileus and had responded to laxatives. Incomplete colonoscopy showed diverticulosis.: Improved Advanced to ground diet TPN and lipids weaned off 2. 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 Russell - Left atrophic kidney 3. Primary osteoarthritis multiple joints bilateral Pain medicine when necessary 4. Persistent atrial fibrillation, rate controlled Lopressor 100 mg twice a day. Eliquis. Telemetry. Cardizem ER 100 mg a day 5. BPH Flomax 0.4 mg a day 6. Essential hypertension Cozaar, Cardizem extended release, Lopressor 7. Severe Hypokalemia from diarrhea: Recurrent Replace potassium 8. GERD Omeprazole 20 mg twice a day 9. Colonic diverticulosis, asymptomatic 10. Chronic medical debility Patient has been a full assist 11. Acute UTI with cystitis, from Proteus mirabilis/ESBL. IV Unasyn Plan for discharge to skilled rehab once stable
[2021-05-22] MEDS: traMADol 50 MG TAB PO PRN (23:13)
[2021-05-23 06:02] LABS: African American GFR (CKD) >90 (>60 ml/min/1.73 sqM); Anion Gap 11 mmol/L; Blood Urea Nitrogen 9 mg/dL (9-20); Carbon Dioxide 20 mmol/L (22-30); Chloride 106 mmol/L (98-107); Glucose 122 mg/dL (74-99); Magnesium 1.8 mg/dL (1.6-2.3); Non-African American GFR(CKD) 83 (>60 ml/min/1.73 sqM); Phosphorus 4.2 mg/dL (2.5-4.5); Potassium 3.7 mmol/L (3.5-5.1); Sodium 137 mmol/L (137-145)
[2021-05-23] MEDS: TAMSULOSIN 0.4 MG CAP.ER.24H PO SCH (07:12)
[2021-05-23] MEDS: METOPROLOL TARTRATE 50 MG TAB PO SCH ×2 (07:12→20:10)
[2021-05-23] MEDS: LOSARTAN 25 MG TAB PO SCH ×2 (07:12→20:10)
[2021-05-23] MEDS: MAGNESIUM OXIDE 400 MG TAB PO SCH ×3 (07:12→20:10)
[2021-05-23] MEDS: FAMOTIDINE 20 MG TAB PO SCH ×2 (07:12→20:10)
[2021-05-23] MEDS: DILTIAZEM ORAL 30 MG TAB PO SCH ×4 (07:12→20:10)
[2021-05-23] MEDS: PSYLLIUM HUSK 100% 6 GM PACKET PO SCH ×2 (07:13→20:10)
[2021-05-23] MEDS: guaiFENesin SYRUP 100MG/5ML 200 MG/10 ML CUP PO SCH ×3 (07:13→20:14)
[2021-05-23] MEDS: POTAS-SOD-PHOS 278-164-250 MG 1 EACH PACKET PO SCH ×3 (07:13→20:10)
[2021-05-23] MEDS: DICLOFENAC SODIUM GEL 100 GM TUBE TOPICAL SCH ×4 (07:16→20:10)
[2021-05-23] MEDS: traMADol 50 MG TAB PO PRN ×2 (10:29→18:54)
--- NOTE | 2021-05-23 11:42 | P.PN ---
Subjective Progress Note Date: 05/23/21 Principal diagnosis: Severe large and small bowel/severe ileus 76-year-old patient, who follows with Dr. Barry. Chronic stable medical conditions include atrial fibrillation, CHF, diabetes, GERD, hypertension, pacemaker, depression. Patient normally is a full assist. Patient was recently in the hospital from April 28 through May 04. Patient had. [facility] for left knee pain and was given laxatives and subsequently patient related to ileus. We had put the patient on her NG tube. He was doing well by the time he left. Patient's found to have a atrophic left kidney, mass appears to be attached by a very pleasant between the kidney and the spleen. We'll follow up with urology. Did undergo colonoscopy by Dr. Escobedo. Also seen by Dr. Nesbitt [place] left knee. Patient was discharged to [facility] rehab at [facility]. Patient now presents stating that since he left. Abdomen was started to be distended again. In got worse. Appetite is poor. Patient been having some liquid bowel movements. Including today. And yesterday. Moderate amount. Patient remains a full assist. No fever no chills. No nausea vomiting. No abdominal pain except for significant distention. Admitted with severe small large bowel ileus/ogilvies. Acute UTI.Urine culture positive for Proteus mirabilis/ESBL. IV Unasyn. Patient failed conservative measures for Sunol syndrome. On May 16 patient was given NG tube, rectal tissue and I started the patient on neostigmine drip. Following day patient had a very large bowel movement followed by smaller stools. Abdomen became very soft. TPN lipids started. May 19: Getting TPN and lipids. Abdomen very soft. Tolerated clear liquids. Advance to full liquids. Severe hypokalemia from diarrhea. Replaced. May 20: Tolerated full liquid diet. Advance to ground diet. Patient is being followed by general surgery and is recommended to advance diet as tolerated and encourage ambulation Vital signs are reviewed and remained stable Plan is for patient to be transferred to skilled rehab once clinically stable and cleared by surgery 05/23/2021 Patient is seen and evaluated and discussed with nursing staff; patient complains of chest congestion and pain in left knee Vital signs are reviewed and stable with temperature of 98.1, pulse 80, respiration 18 and blood pressure 191/96 Laboratory review shows sodium 137, potassium 3.7, BUN/creatinine of 9/0.88 Blood pressure remains elevated; patient is currently on Cardizem, losartan and metoprolol for blood pressure control; we did increase losartan from 12.5 mg twice a day up to 25 mg twice a day We will order stat chest x-ray and left knee x-ray; further recommendations once results are available Objective - Vital Signs Vital signs: Vital Signs Temp 98.1 F 05/23/21 07:19 Pulse 80 05/23/21 07:19 Resp 19 05/23/21 07:19 BP 191/96 05/23/21 07:19 Pulse Ox 94 L 05/23/21 07:19 Intake & Output 05/22/21 05/23/21 05/23/21 18:59 06:59 18:59 Intake Total 160 Output Total 550 Balance 160 -550 Intake: Intake, IV Titration 160 Amount Lactated Ringers 1,000 ml 160 @ 20 mls/hr IV .Q24H [facility] Rx#:[id number] Output: Urine 550 Other: Voiding Method Indwelling Catheter - Exam GENERAL: Reclining in bed, awake, EYES: Pupils equal. Conjunctiva normal. HEENT: External appearance of nose and ears normal, oral cavity grossly normal. NECK: JVD not raised; masses not palpable. HEART: First and second heart sounds are normal; no edema. LUNGS: Respiratory rate normal; clear to auscultation. ABDOMEN: Soft, not distended nontender, liver spleen not palpable, no masses palpable. Fecal management system in place PSYCH: Alert and oriented x3; mood and affect normal. MUSCULOSKELETAL:No Clubbing/cyanosis;muscles-grossly intact. Evidence of OA - Labs CBC & Chem 7: 05/17/21 09:18 05/23/21 05:10 Labs: Abnormal Lab Results - Last 24 Hours (Table) 05/23/21 Range/Units 05:10 Carbon Dioxide 20 L (22-30) mmol/L Glucose 122 H (74-99) mg/dL Calcium 8.0 L (8.4-10.2) mg/dL Assessment and Plan Assessment: 1. Severe large and small bowel/severe ileus. Recent admission patient had ileus and had responded to laxatives. Incomplete colonoscopy showed diverticulosis.: Improved Advanced to ground diet TPN and lipids weaned off 2. 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 Russell - Left atrophic kidney 3. Primary osteoarthritis multiple joints bilateral Pain medicine when necessary 4. Persistent atrial fibrillation, rate controlled Lopressor 100 mg twice a day. Eliquis. Telemetry. Cardizem ER 100 mg a day 5. BPH Flomax 0.4 mg a day 6. Essential hypertension Cozaar, Cardizem extended release, Lopressor 7. Severe Hypokalemia from diarrhea: Recurrent Replace potassium 8. GERD Omeprazole 20 mg twice a day 9. Colonic diverticulosis, asymptomatic 10. Chronic medical debility Patient has been a full assist 11. Acute UTI with cystitis, from Proteus mirabilis/ESBL. IV Unasyn Plan for discharge to skilled rehab once stable
[2021-05-23] MEDS ORDERED: LOSARTAN 25 MG TAB PO ONE (11:45)
--- NOTE | 2021-05-23 13:33 | XR ---
EXAMINATION TYPE: XR chest 1V portable DATE OF EXAM: 05/23/2021 Comparison: 05/16/2021 Clinical History: 76 year-old male shortness of breath, dyspnea Findings: Left anterior chest wall pacemaker generator with right ventricular lead. The patient's chin obscures the medial apices. Lung volumes are markedly diminished. Heart likely markedly enlarged. There is th ickening of the minor fissure that could be from fluid. Hazy density at right base and some possible Shweta B lines noted. Otherwise, limited visualization of lung bases due to patient positioning and v lalo low lung volumes. Partially visualized ACDF hardware. Impression: Very limited exam due to patient positioning and hypoventilatory changes. There is ongoing cardiomega ly. Possible small right pleural effusion. Some Shweta B lines suggested on the right. Correlate to e xclude mild pulmonary vascular congestion.
--- NOTE | 2021-05-23 13:35 | XR ---
EXAMINATION TYPE: XR knee complete LT DATE OF EXAM: 05/23/2021 COMPARISON: 04/29/2021 HISTORY: 76-year-old male edema and pain after fall TECHNIQUE: 3 views including crosstable lateral FINDINGS: Generalized soft tissue swelling and osteopenia. Moderate to severe narrowing of cartilage and joint space in the medial compartment. There is a moderate to large knee joint effusion. Possible osteochon dral lesion versus impaction fracture along the central aspect of the medial femoral condyle. IMPRESSION: 1. Possible osteochondral lesion versus insufficiency fracture central aspect of the medial femoral c ondyle. 2. Moderate to large knee joint effusion. 3. Tricompartmental osteoarthrosis, at least moderate in the medial compartment. 4. Osteopenia and generalized soft tissue swelling.
[2021-05-23] MEDS ORDERED: FUROSEMIDE 10 MG/ML 2 ML VIAL IV STA (15:23)
--- NOTE | 2021-05-23 15:37 | P.PN ---
Subjective Progress Note Date: 05/23/21 CHIEF COMPLAINT: Colonic distention HISTORY OF PRESENT ILLNESS: The patient is a 76-year-old male presented with colonic distention due to pseudo-colonic obstruction. Patient responded to pharmacotherapy. He is tolerating diet without abdominal pain. He is eager to be discharged from the hospital. ROS: No fevers or chills. Morbid obesity, BMI 42.0. Having bowel movements. PHYSICAL EXAM: VITAL SIGNS: Reviewed CONSTITUTIONAL: Well developed and in no acute distress. EYES: Conjuctivae without sclera icterus. Extraocular movements grossly intact. HEAD, EARS, NOSE, THROAT: Moist buccal mucosa. Head is atraumatic, normocephalic. Hears conversational speech. No nasal drainage. RESPIRATORY: Non-labored respirations and equal bilateral excursions. CARDIOVASCULAR: Palpable 2+ radial pulses. ABDOMEN: Obese, mild distendion. MUSCULOSKELETAL: No gross deformity of the lower extremities noted. No clubbing. No cyanosis. SKIN: Good skin turgor. Well perfused. NEUROLOGIC: Cranial nerves II through XII grossly intact. No focal or lateralizing signs. PSYCH: Appropriate affect. Alert and oriented to person, place and time. CLINICAL LABS: Reviewed. Sodium potassium within normal limits. ASSESSMENT: 1. Ileus PLAN: 1. Diet as tolerated 2. Stable for discharge when medically stable Objective - Vital Signs Vital signs: Vital Signs Temp 98.1 F 05/23/21 07:19 Pulse 80 05/23/21 07:19 Resp 19 05/23/21 07:19 BP 191/96 05/23/21 07:19 Pulse Ox 94 L 05/23/21 07:19 Intake & Output 05/22/21 05/23/21 05/23/21 18:59 06:59 18:59 Intake Total 160 Output Total 550 Balance 160 -550 Intake: Intake, IV Titration 160 Amount Lactated Ringers 1,000 ml 160 @ 20 mls/hr IV .Q24H [facility] Rx#:[id number] Output: Urine 550 Other: Voiding Method Indwelling Catheter - Labs CBC & Chem 7: 05/17/21 09:18 05/23/21 05:10 Labs: Abnormal Lab Results - Last 24 Hours (Table) 05/23/21 Range/Units 05:10 Carbon Dioxide 20 L (22-30) mmol/L Glucose 122 H (74-99) mg/dL Calcium 8.0 L (8.4-10.2) mg/dL Assessment and Plan (1) Morbid (severe) obesity due to excess calories Current Visit: Yes Status: Acute Code(s): E66.01 - MORBID (SEVERE) OBESITY DUE TO EXCESS CALORIES SNOMED Code(s): 139641670 (2) BMI 40.0-44.9, adult Current Visit: Yes Status: Acute Code(s): Z68.41 - BODY MASS INDEX [BMI] 40. 0-44.9, ADULT SNOMED Code(s): 750015996 (3) Pseudo-obstruction of colon Current Visit: Yes Status: Acute Code(s): K59.81 - NIRALI SYNDROME SNOMED Code(s): 143458113 (4) Abdominal pain Current Visit: Yes Status: Acute Code(s): R10.9 - UNSPECIFIED ABDOMINAL PAIN SNOMED Code(s): 92285250 (5) Ileus Current Visit: Yes Status: Acute Code(s): K56.7 - ILEUS, UNSPECIFIED SNOMED Code(s): 293280207
--- NOTE | 2021-05-23 16:59 | CT ---
EXAMINATION TYPE: CT knee LT w con DATE OF EXAM: 05/23/2021 COMPARISON: None HISTORY: left knee pain and swelling, no injury CT DLP: 1319.4 mGycm Automated exposure control for dose reduction was used. CONTRAST: Performed with IV Contrast, patient injected with 100 mL of Isovue 300. Images obtained from the mid femur to the mid tibia without contrast. There is a moderate size knee joint effusion. There is spurring of the patella. There is narrowing of patellofemoral joint space. There is subcutaneous edema around the lower thigh and lower leg. The di stal femur is intact. No fracture seen. Proximal tibia is intact. There is some hypertrophic spurring of the femoral and tibial condyles. I see no focal bone destruction. There is atherosclerotic vascul ar calcification. IMPRESSION: Knee joint effusion. Subcutaneous edema. Osteoarthritic changes. No fracture seen.
[2021-05-23] MEDS: ATORVASTATIN 20 MG TAB PO SCH (20:10)
[2021-05-24] MEDS: traMADol 50 MG TAB PO PRN ×2 (01:22→20:52)
[2021-05-24 07:26] LABS: Glucose,Whole Blood 133 mg/dL (75-99)
[2021-05-24] MEDS: PSYLLIUM HUSK 100% 6 GM PACKET PO SCH ×2 (07:59→20:33)
[2021-05-24] MEDS: guaiFENesin SYRUP 100MG/5ML 200 MG/10 ML CUP PO SCH ×3 (07:59→20:34)
[2021-05-24] MEDS: LOSARTAN 25 MG TAB PO SCH ×2 (07:59→20:35)
[2021-05-24] MEDS: METOPROLOL TARTRATE 50 MG TAB PO SCH ×2 (07:59→20:45)
[2021-05-24] MEDS: FAMOTIDINE 20 MG TAB PO SCH ×2 (07:59→20:35)
[2021-05-24] MEDS: POTAS-SOD-PHOS 278-164-250 MG 1 EACH PACKET PO SCH ×3 (08:00→20:35)
[2021-05-24] MEDS: DILTIAZEM ORAL 30 MG TAB PO SCH ×4 (08:00→20:35)
[2021-05-24] MEDS: MAGNESIUM OXIDE 400 MG TAB PO SCH ×3 (08:00→20:35)
[2021-05-24] MEDS: TAMSULOSIN 0.4 MG CAP.ER.24H PO SCH (08:00)
[2021-05-24] MEDS: DICLOFENAC SODIUM GEL 100 GM TUBE TOPICAL SCH ×4 (08:01→20:33)
[2021-05-24 11:51] LABS: Glucose,Whole Blood 136 mg/dL (75-99)
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
[2021-05-24] MEDS ORDERED: FUROSEMIDE 10 MG/ML 2 ML VIAL IV STA (14:06)
--- NOTE | 2021-05-24 15:03 | P.PN ---
Subjective Progress Note Date: 05/24/21 CHIEF COMPLAINT: Abdominal pain HISTORY OF PRESENT ILLNESS: Patient with chronic pseudoobstruction of colon. He currently has fecal management system in place. Patient having stool and flatus. Abdominal distention continues to improve. Patient is on full liquid diet. Patient is being seen by orthopedics regarding his knee pain. Afebrile. Patient seen and examined with Dr. huddleston PHYSICAL EXAM: VITAL SIGNS: Reviewed. GENERAL: Well-developed in no acute distress. HEENT: No sclera icterus. Extraocular movements grossly intact. Moist buccal mucosa. Head is atraumatic, normocephalic. ABDOMEN: Abdomen softer. Decrease in abdominal distention. Nontender NEUROLOGIC: Alert and oriented. Cranial nerves II through XII grossly intact. ASSESSMENT: 1. Chronic pseudoobstruction of colon 2. Hypomagnesemia improved 3. Hypokalemia improved 4. UTI PLAN: -Patient is showing improvement. No surgical intervention planned -Continue to observe -Continue Reglan -Continue supportive care -Continue to monitor and correct electrolytes -Okay to resume Eliquis from surgical standpoint Physician Landfill Gas Collection System Operator note has been reviewed by physician. Signing provider agrees with the documented findings, assessment, and plan of care. Objective - Vital Signs Vital signs: Vital Signs Temp 98.1 F 05/24/21 08:00 Pulse 88 05/24/21 08:00 Resp 16 05/24/21 08:00 BP 164/91 05/24/21 08:00 Pulse Ox 94 L 05/24/21 08:00 Intake & Output 05/23/21 05/24/21 05/24/21 18:59 06:59 18:59 Intake Total 236 Output Total 800 3200 Balance -800 -3200 236 Intake: Oral 236 Output: Urine 3200 Stool 800 - Labs CBC & Chem 7: 05/17/21 09:18 05/23/21 05:10 Labs: Abnormal Lab Results - Last 24 Hours (Table) 05/24/21 05/24/21 Range/Units 07:24 11:49 POC Glucose (mg/dL) 133 H 136 H (75-99) mg/dL
[2021-05-24 16:52] LABS: Glucose,Whole Blood 140 mg/dL (75-99)
[2021-05-24] MEDS: ATORVASTATIN 20 MG TAB PO SCH (20:35)
[2021-05-24 20:36] LABS: Glucose,Whole Blood 127 mg/dL (75-99)
[2021-05-25] MEDS: guaiFENesin SYRUP 100MG/5ML 200 MG/10 ML CUP PO SCH ×3 (07:08→20:05)
[2021-05-25] MEDS: MAGNESIUM OXIDE 400 MG TAB PO SCH ×3 (07:22→20:03)
[2021-05-25] MEDS: FAMOTIDINE 20 MG TAB PO SCH ×2 (07:22→20:03)
[2021-05-25] MEDS: TAMSULOSIN 0.4 MG CAP.ER.24H PO SCH (07:22)
[2021-05-25] MEDS: LOSARTAN 25 MG TAB PO SCH ×2 (07:22→20:04)
[2021-05-25] MEDS: PSYLLIUM HUSK 100% 6 GM PACKET PO SCH ×2 (07:22→20:04)
[2021-05-25] MEDS: METOPROLOL TARTRATE 50 MG TAB PO SCH ×2 (07:22→20:03)
[2021-05-25] MEDS: DICLOFENAC SODIUM GEL 100 GM TUBE TOPICAL SCH ×4 (07:23→20:04)
[2021-05-25] MEDS: DILTIAZEM ORAL 30 MG TAB PO SCH ×4 (07:23→20:03)
[2021-05-25] MEDS: POTAS-SOD-PHOS 278-164-250 MG 1 EACH PACKET PO SCH ×3 (07:23→20:03)
[2021-05-25 07:37] LABS: Glucose,Whole Blood 135 mg/dL (75-99)
--- NOTE | 2021-05-25 08:29 | P.PN ---
Subjective Progress Note Date: 05/24/21 Severe large and small bowel/severe ileus 76-year-old patient, who follows with Dr. Barry. Chronic stable medical conditions include atrial fibrillation, CHF, diabetes, GERD, hypertension, pacemaker, depression. Patient normally is a full assist. Patient was recently in the hospital from April 28 through May 04. Patient had. [facility] for left knee pain and was given laxatives and subsequently patient related to ileus. We had put the patient on her NG tube. He was doing well by the time he left. Patient's found to have a atrophic left kidney, mass appears to be attached by a very pleasant between the kidney and the spleen. We'll follow up with urology. Did undergo colonoscopy by Dr. Escobedo. Also seen by Dr. Laz Chacko left knee. Patient was discharged to [facility] rehab at [facility]. Patient now presents stating that since he left. Abdomen was started to be distended again. In got worse. Appetite is poor. Patient been having some liquid bowel movements. Including today. And yesterday. Moderate amount. Patient remains a full assist. No fever no chills. No nausea vomiting. No abdominal pain except for significant distention. Admitted with severe small large bowel ileus/ogilvies. Acute UTI.Urine culture positive for Proteus mirabilis/ESBL. IV Unasyn. Patient failed conservative measures for [place] syndrome. On May 16 patient was given NG tube, rectal tissue and I started the patient on neostigmine drip. Following day patient had a very large bowel movement followed by smaller stools. Abdomen became very soft. TPN lipids started. May 19: Getting TPN and lipids. Abdomen very soft. Tolerated clear liquids. Advance to full liquids. Severe hypokalemia from diarrhea. Replaced. May 20: Tolerated full liquid diet. Advance to ground diet. Patient is being followed by general surgery and is recommended to advance diet as tolerated and encourage ambulation Vital signs are reviewed and remained stable Plan is for patient to be transferred to skilled rehab once clinically stable and cleared by surgery 05/23/2021 Patient is seen and evaluated and discussed with nursing staff; patient complains of chest congestion and pain in left knee Vital signs are reviewed and stable with temperature of 98.1, pulse 80, respiration 18 and blood pressure 191/96 Laboratory review shows sodium 137, potassium 3.7, BUN/creatinine of 9/0.88 Blood pressure remains elevated; patient is currently on Cardizem, losartan and metoprolol for blood pressure control; we did increase losartan from 12.5 mg twice a day up to 25 mg twice a day We will order stat chest x-ray and left knee x-ray; further recommendations once results are available 05/24/2021 Patient is seen and evaluated in follow-up currently being closely monitored and continues with multiple loose stools and also continues with fecal management system as per nursing staff has been having loose stools at least every hour. Patient having some knee pain and will consult orthopedics which is currently pending. Patient was maintained on Eliquis for atrial fibrillation although this is currently on hold and per surgical services okay to resume. Social work to follow and will discuss with discharge planning is patient will be returning to [facility] when stable. Review of systems: Constitutional: No reports of fatigue, fever, or chills Cardiovascular: No reports of chest pain or palpitations Respiratory: No reports of shortness of breath or cough GI: No reports of nausea, no reports of of vomiting, patient is reporting continued loose stool and wants fecal management system removed : No reports of dysuria or retention Neurovascular: reports of generalized weakness All medications have been reviewed Active Medications Acetaminophen (Acetaminophen Tab 325 Mg Tab) 650 mg PO Q6HR PRN PRN Reason: Fever>101 Last Admin: 05/21/21 19:50 Dose: 650 mg Documented by: Atorvastatin Calcium (Atorvastatin 20 Mg Tab) 20 mg PO [facility] Last Admin: 05/23/21 20:10 Dose: 20 mg Documented by: Diclofenac Sodium (Diclofenac Sodium Gel 100 Gm Tube) 4 gm TOPICAL QID [facility]; Protocol Last Admin: 05/24/21 12:11 Dose: 4 gm Documented by: Diltiazem HCl (Diltiazem Oral 30 Mg Tab) 30 mg PO QID [facility] Last Admin: 05/24/21 12:10 Dose: 30 mg Documented by: Famotidine (Famotidine 20 Mg Tab) 20 mg PO BID [facility] Last Admin: 05/24/21 07:59 Dose: 20 mg Documented by: Guaifenesin (Guaifenesin Syrup 100mg/5ml 200 Mg/10 Ml Cup) 400 mg PO TID [facility] Last Admin: 05/24/21 14:12 Dose: Not Given Documented by: Losartan Potassium (Losartan 25 Mg Tab) 25 mg PO BID [facility] Last Admin: 05/24/21 07:59 Dose: 25 mg Documented by: Magnesium Oxide (Magnesium Oxide 400 Mg Tab) 400 mg PO TID [facility] Last Admin: 05/24/21 14:20 Dose: 400 mg Documented by: Metoprolol Tartrate (Metoprolol Tartrate 50 Mg Tab) 100 mg PO BID [facility] Last Admin: 05/24/21 07:59 Dose: 100 mg Documented by: Naloxone HCl (Naloxone 0.4 Mg/Ml 1 Ml Vial) 0.2 mg IV Q2M PRN PRN Reason: Opioid Reversal Ondansetron HCl (Ondansetron 4 Mg/2 Ml Vial) 4 mg IVP Q8HR PRN PRN Reason: Nausea And Vomiting Last Admin: 05/17/21 19:30 Dose: 4 mg Documented by: Potassium Phos/Sodium Phos (Mhexq-Inf-Pkts 278-164-250 Mg 1 Each Packet) 1 each PO TID [facility] Last Admin: 05/24/21 14:20 Dose: 1 each Documented by: Psyllium Hydrophilic Mucilloid (Psyllium Husk 100% 6 Gm Packet) 6 gm PO BID [facility] Last Admin: 05/24/21 07:59 Dose: 6 gm Documented by: Tamsulosin HCl (Tamsulosin 0.4 Mg Cap.Er.24h) 0.4 mg PO DAILY [facility] Last Admin: 05/24/21 08:00 Dose: 0.4 mg Documented by: Tramadol HCl (Tramadol 50 Mg Tab) 50 mg PO QID PRN PRN Reason: Moderate to Severe Pain Last Admin: 05/24/21 01:22 Dose: 50 mg Documented by: PHYSICAL EXAMINATION: GENERAL: The patient is alert and oriented, Well developed, well nourished. Morbidly obese HEENT: Pupils are round and equally reacting to light. EOMI. does have scleral icterus. No conjunctival pallor. Normocephalic, atraumatic. No pharyngeal eryt ancelmo. No thyromegaly. CARDIOVASCULAR: S1 and S2 muffled PULMONARY: diminished breath sounds bilaterally with no wheezing or rhonchi noted. ABDOMEN: soft. Nontender on exam. obese. non-distended, normoactive bowel sounds. No palpable organomegaly. MUSCULOSKELETAL: No joint swelling or deformity. EXTREMITIES: No cyanosis, clubbing, or pedal edema. NEUROLOGICAL: Gross neurological examination did not reveal any focal deficits. Diffuse weakness SKIN: No rashes. 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 Patient has com pleted IV antibiotic therapy for urinary tract infection and is currently off antibiotics. Patient will need urology follow-up in the outpatient setting when stable. Patient has been seen and evaluated by PT/OT therapy recommending rehab and social work to follow working on an accepting facility once patient is stable. Patient continues with multiple episodes of loose stools and continues with fecal management system at this time. Patient is extremely weak and evaluated by physical therapy daily. Patient having some knee pain and will consult orthopedics. Patient also seen and evaluated by general surgery with no surgical interventions planned at this time with close observation. No active bleeding noted and will resume anticoagulant and closely monitor. Due to multiple complex medical issues, prognosis is guarded. The impression and plan of care has been dictated by Melody Kirk, nurse practitioner as directed. MD Chandler I have performed a history and examination and MDM of this patient, discussed the same with the dictator, and agree with the dictator's assessment and plan as written ,documented as a scribe. Based on total visit time, I have performed more than 50% of the visit. Any additional findings or plans will be noted. Objective - Vital Signs Vital signs: Vital Signs Temp 98.4 F 05/24/21 14:00 Pulse 79 05/24/21 14:00 Resp 16 05/24/21 14:00 BP 158/87 05/24/21 14:00 Pulse Ox 96 05/24/21 14:00 Intake & Output 05/23/21 05/24/21 05/24/21 18:59 06:59 18:59 Intake Total 532 Output Total 800 3200 500 Balance -800 -3200 32 Intake: Oral 532 Output: Urine 3200 500 Stool 800 - Labs CBC & Chem 7: 05/17/21 09:18 05/23/21 05:10 Labs: Abnormal Lab Results - Last 24 Hours (Table) 05/24/21 05/24/21 Range/Units 07:24 11:49 POC Glucose (mg/dL) 133 H 136 H (75-99) mg/dL
[2021-05-25 11:41] LABS: Glucose,Whole Blood 132 mg/dL (75-99)
--- NOTE | 2021-05-25 12:13 | P.PN ---
Subjective Progress Note Date: 05/25/21 Principal diagnosis: Left knee pain, left knee osteoarthritis Patient evaluated today at bedside, is resting comfortably in his hospital bed. He continues to have discomfort in his left knee. Patient would still like to go ahead with the aspiration with cortisone injection of the left knee. Prescription benefits again were discussed with the patient today, he is in good understanding. Objective - Vital Signs Vital signs: Vital Signs Temp 97.3 F L 05/25/21 07:18 Pulse 91 05/25/21 07:18 Resp 16 05/25/21 07:18 BP 169/100 05/25/21 07:18 Pulse Ox 93 L 05/25/21 07:18 Intake & Output 05/24/21 05/25/21 05/25/21 18:59 06:59 18:59 Intake Total 828 Output Total 1500 600 Balance -672 -600 Weight 148.5 kg Intake: Oral 828 Output: Urine 1500 600 Other: Voiding Method Indwelling Catheter - Exam Left lower extremity: Obvious effusion around the left knee, there is no erythema surrounding the knee, there are no open sores or lesions Exam of the remaining aspect of the skin, he has severe edema in the lower extremity with erythema and skin molting Obvious tenderness with palpation around the medial and lateral aspect of the knee joint. patient is nontender with palpation about the proximal extremity, also the lower extremity distal to the knee. Logroll maneuver of the hip joint reproduces no groin pain Passive and active motion of the left knee do reproduce some discomfort mainly with deep flexion Plantar flexion, dorsiflexion, EHL, FHL are intact - Labs CBC & Chem 7: 05/17/21 09:18 05/23/21 05:10 Labs: Abnormal Lab Results - Last 24 Hours (Table) 05/24/21 05/24/21 05/25/21 Range/Units 16:51 20:35 07:36 POC Glucose (mg/dL) 140 H 127 H 135 H (75-99) mg/dL 05/25/21 Range/Units 11:40 POC Glucose (mg/dL) 132 H (75-99) mg/dL Assessment and Plan Assessment: Left knee pain/effusion Left knee severe osteoarthritis Multiple medical comorbidities Plan: Plan: Risk and benefits were discussed for the procedure, he is in good understanding and would like to proceed. Consent was obtained prior to the procedure, a timeout was done at bedside with nursing. Nursing was available the entire time during the procedure. Please see procedure note for further detail. Pain control, could consider increasing oral narcotic for long-term. Patient is a very poor candidate for joint replacement GI and DVT prophylaxis per primary medical service Other medical radiation tech recommendations Orthopedic standpoint patient is stable for discharge Time with Patient: Less than 30
--- NOTE | 2021-05-25 12:15 | P.PCN ---
Date of Procedure: 05/25/21 Preoperative Diagnosis: Left knee pain, left knee effusion, left knee osteoarthritis Postoperative Diagnosis: Left knee effusion, left knee pain, left knee osteoarthritis Procedure(s) Performed: Left knee aspiration with cortisone injection Anesthesia: none Surgeon: Salbador Hamilton Estimated Blood Loss (ml): 0 Pathology: none sent Condition: stable Disposition: no change Description of Procedure: Risk and benefits were discussed prior to the procedure, this including infect ion and inadequate resolution of symptoms. Patient is a good understanding and wanted to proceed. Consent form and timeout performed prior to procedure. Patient was lying in the supine position, the knee was prepped with 2 chlorhexidine swabs and then to alcohol swabs. A 20-gauge needle was first used to aspirate about 10 mL of bloody serosanguineous drainage. After aspiration, syringes were changed, I then placed 1 mL of 1% plain lidocaine, 1 mL of quarter percent plain Marcaine, 40 mg of Depo-Medrol. This was all done via the suprapatellar approach. Patient tolerated the procedure well. Bandage was placed at the end.
--- NOTE | 2021-05-25 15:46 | P.PN ---
Subjective Progress Note Date: 05/25/21 CHIEF COMPLAINT: Abdominal pain HISTORY OF PRESENT ILLNESS: Patient with chronic pseudoobstruction of colon. Fecal management system came out. He is having bowel movements. Tolerating full liquid diet. Patient is being seen by orthopedics regarding his knee pain. Afebrile. Patient seen and examined with Dr. huddleston PHYSICAL EXAM: VITAL SIGNS: Reviewed. GENERAL: Well-developed in no acute distress. HEENT: No sclera icterus. Extraocular movements grossly intact. Moist buccal mucosa. Head is atraumatic, normocephalic. ABDOMEN: Distended. Nontender NEUROLOGIC: Alert and oriented. Cranial nerves II through XII grossly intact. ASSESSMENT: 1. Chronic pseudoobstruction of colon 2. Hypomagnesemia improved 3. Hypokalemia improved 4. UTI PLAN: -Advance diet to ground diet -Patient can be discharged from surgical standpoint when medically stable -Follow up in office in one week -No surgical intervention planned -Okay to resume Eliquis from surgical standpoint Physician Dish Cloth Inspector note has been reviewed by physician. Signing provider agrees with the documented findings, assessment, and plan of care. Objective - Vital Signs Vital signs: Vital Signs Temp 97.9 F 05/25/21 14:00 Pulse 86 05/25/21 14:00 Resp 16 05/25/21 14:00 BP 156/88 05/25/21 14:00 Pulse Ox 96 05/25/21 14:00 Intake & Output 05/24/21 05/25/21 05/25/21 18:59 06:59 18:59 Intake Total 828 Output Total 1500 600 Balance -672 -600 Weight 148.5 kg Intake: Oral 828 Output: Urine 1500 600 Other: Voiding Method Indwelling Catheter - Labs CBC & Chem 7: 05/17/21 09:18 05/23/21 05:10 Labs: Abnormal Lab Results - Last 24 Hours (Table) 05/24/21 05/24/21 05/25/21 Range/Units 16:51 20:35 07:36 POC Glucose (mg/dL) 140 H 127 H 135 H (75-99) mg/dL 05/25/21 Range/Units 11:40 POC Glucose (mg/dL) 132 H (75-99) mg/dL
[2021-05-25 17:01] LABS: Glucose,Whole Blood 146 mg/dL (75-99)
[2021-05-25] MEDS: ATORVASTATIN 20 MG TAB PO SCH (20:03)
[2021-05-25 20:58] LABS: Glucose,Whole Blood 167 mg/dL (75-99)
--- NOTE | 2021-05-25 23:44 | P.PN ---
Subjective Progress Note Date: 05/25/21 Severe large and small bowel/severe ileus 76-year-old patient, who follows with Dr. Barry. Chronic stable medical conditions include atrial fibrillation, CHF, diabetes, GERD, hypertension, pacemaker, depression. Patient normally is a full assist. Patient was recently in the hospital from April 28 through May 04. Patient had. [facility] for left knee pain and was given laxatives and subsequently patient related to ileus. We had put the patient on her NG tube. He was doing well by the time he left. Patient's found to have a atrophic left kidney, mass appears to be attached by a very pleasant between the kidney and the spleen. We'll follow up with urology. Did undergo colonoscopy by Dr. Escobedo. Also seen by Dr. Laz Chacko left knee. Patient was discharged to [facility] rehab at [facility]. Patient now presents stating that since he left. Abdomen was started to be distended again. In got worse. Appetite is poor. Patient been having some liquid bowel movements. Including today. And yesterday. Moderate amount. Patient remains a full assist. No fever no chills. No nausea vomiting. No abdominal pain except for significant distention. Admitted with severe small large bowel ileus/ogilvies. Acute UTI.Urine culture positive for Proteus mirabilis/ESBL. IV Unasyn. Patient failed conservative measures for [place] syndrome. On May 16 patient was given NG tube, rectal tissue and I started the patient on neostigmine drip. Following day patient had a very large bowel movement followed by smaller stools. Abdomen became very soft. TPN lipids started. May 19: Getting TPN and lipids. Abdomen very soft. Tolerated clear liquids. Advance to full liquids. Severe hypokalemia from diarrhea. Replaced. May 20: Tolerated full liquid diet. Advance to ground diet. Patient is being followed by general surgery and is recommended to advance diet as tolerated and encourage ambulation Vital signs are reviewed and remained stable Plan is for patient to be transferred to skilled rehab once clinically stable and cleared by surgery 05/23/2021 Patient is seen and evaluated and discussed with nursing staff; patient complains of chest congestion and pain in left knee Vital signs are reviewed and stable with temperature of 98.1, pulse 80, respiration 18 and blood pressure 191/96 Laboratory review shows sodium 137, potassium 3.7, BUN/creatinine of 9/0.88 Blood pressure remains elevated; patient is currently on Cardizem, losartan and metoprolol for blood pressure control; we did increase losartan from 12.5 mg twice a day up to 25 mg twice a day We will order stat chest x-ray and left knee x-ray; further recommendations once results are available 05/24/2021 Patient is seen and evaluated in follow-up currently being closely monitored and continues with multiple loose stools and also continues with fecal management system as per nursing staff has been having loose stools at least every hour. Patient having some knee pain and will consult orthopedics which is currently pending. Patient was maintained on Eliquis for atrial fibrillation although this is currently on hold and per surgical services okay to resume. Social work to follow and will discuss with discharge planning is patient will be returning to [facility] when stable. 05/25/2021 Patient is seen today and will be receiving cortisone injection of the knee by orthopedics. Surgery following as well and slowly advancing diet. Patient tolerating. FMS had a leak and was removed as patients stool is more formed and less frequent. Eliquis will be resumed tomorrow as patient is to receive injection today. Patient to return to [facility] possibly in 24 hours. Social work following. Review of systems: Constitutional: No reports of fatigue, fever, or chills Cardiovascular: No reports of chest pain or palpitations Respiratory: No reports of shortness of breath or cough GI: No reports of nausea, no reports of of vomiting, patient is reporting improvement in frequency of bowel movements : No reports of dysuria or retention Neurovascular: reports of generalized weakness All medications have been reviewed Active Medications Acetaminophen (Acetaminophen Tab 325 Mg Tab) 650 mg PO Q6HR PRN PRN Reason: Fever>101 Last Admin: 05/21/21 19:50 Dose: 650 mg Documented by: Atorvastatin Calcium (Atorvastatin 20 Mg Tab) 20 mg PO [facility] Last Admin: 05/25/21 20:03 Dose: 20 mg Documented by: Diclofenac Sodium (Diclofenac Sodium Gel 100 Gm Tube) 4 gm TOPICAL QID [facility]; Protocol Last Admin: 05/25/21 20:04 Dose: 4 gm Documented by: Diltiazem HCl (Diltiazem Oral 30 Mg Tab) 30 mg PO QID [facility] Last Admin: 02/22/22 20:03 Dose: 30 mg Documented by: Famotidine (Famotidine 20 Mg Tab) 20 mg PO BID [facility] Last Admin: 05/25/21 20:03 Dose: 20 mg Documented by: Guaifenesin (Guaifenesin Syrup 100mg/5ml 200 Mg/10 Ml Cup) 400 mg PO TID [facility] Last Admin: 05/25/21 20:05 Dose: Not Given Documented by: Losartan Potassium (Losartan 25 Mg Tab) 25 mg PO BID [facility] Last Admin: 05/25/21 20:04 Dose: 25 mg Documented by: Magnesium Oxide (Magnesium Oxide 400 Mg Tab) 400 mg PO TID [facility] Last Admin: 05/25/21 20:03 Dose: 400 mg Documented by: Metoprolol Tartrate (Metoprolol Tartrate 50 Mg Tab) 100 mg PO BID [facility] Last Admin: 05/25/21 20:03 Dose: 100 mg Documented by: Naloxone HCl (Naloxone 0.4 Mg/Ml 1 Ml Vial) 0.2 mg IV Q2M PRN PRN Reason: Opioid Reversal Ondansetron HCl (Ondansetron 4 Mg/2 Ml Vial) 4 mg IVP Q8HR PRN PRN Reason: Nausea And Vomiting Last Admin: 05/17/21 19:30 Dose: 4 mg Documented by: Potassium Phos/Sodium Phos (Gxdqr-Stg-Xspe [id number] Mg 1 Each Packet) 1 each PO TID [facility] Last Admin: 05/25/21 20:03 Dose: 1 each Documented by: Psyllium Hydrophilic Mucilloid (Psyllium Husk 100% 6 Gm Packet) 6 gm PO BID [facility] Last Admin: 05/25/21 20:04 Dose: Not Given Documented by: Tamsulosin HCl (Tamsulosin 0.4 Mg Cap.Er.24h) 0.4 mg PO DAILY [facility] Last Admin: 05/25/21 07:22 Dose: 0.4 mg Documented by: Tramadol HCl (Tramadol 50 Mg Tab) 50 mg PO QID PRN PRN Reason: Moderate to Severe Pain Last Admin: 05/24/21 20:52 Dose: 50 mg Documented by: PHYSICAL EXAMINATION: GENERAL: The patient is alert and oriented, Well developed, well nourished. Morbidly obese HEENT: Pupils are round and equally reacting to light. EOMI. does have scleral icterus. No conjunctival pallor. Normocephalic, atraumatic. No pharyngeal eryth mini. No thyromegaly. CARDIOVASCULAR: S1 and S2 muffled PULMONARY: diminished breath sounds bilaterally with no wheezing or rhonchi noted. ABDOMEN: soft. Nontender on exam. obese. non-distended, normoactive bowel sounds. No palpable organomegaly. MUSCULOSKELETAL: No joint swelling or deformity. EXTREMITIES: No cyanosis, clubbing, or pedal edema. NEUROLOGICAL: Gross neurological examination did not reveal any focal deficits. Diffuse weakness SKIN: No rashes. 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 Patient has completed IV antibiotic therapy for urinary tract infection and is currently off antibiotics. Patient will need urology follow-up in the outpatient setting when stable. Patient has been seen and evaluated by PT/OT therapy recommending rehab and social work to follow working on [facility] return once patient is stable. Patient fecal management system removed at this time as there was a leak and stool has become more solid. Patient diet is being advanced by surgery with no surgical intervention being planned. Patient is extremely weak and evaluated by physical therapy daily. Patient having some knee pain and was seen by orthopedics and will be receiving cortisone injection to the knee with possible aspiration and will hold eliquis until tomorrow. Will continue to closely monitor. Due to multiple complex medical issues, prognosis is guarded. Anticipate discharge to [facility] in 24 hours. The impression and plan of care has been dictated by Melody Kirk, nurse practitioner as directed. MD Chandler I have performed a history and examination and MDM of this patient, discussed the same with the dictator, and agree with the dictator's assessment and plan as written ,documented as a scribe. Based on total visit time, I have performed more than 50% of the visit. Any additional findings or plans will be noted. Objective - Vital Signs Vital signs: Vital Signs Temp 98.4 F 05/25/21 19:50 Pulse 83 05/25/21 19:50 Resp 16 05/25/21 19:50 BP 186/101 05/25/21 19:50 Pulse Ox 94 L 05/25/21 19:50 Intake & Output 05/25/21 05/25/21 05/26/21 06:59 18:59 06:59 Intake Total 296 Output Total 600 500 Balance -600 -204 Weight 148.5 kg Intake: Oral 296 Output: Urine 600 500 Other: Voiding Method Indwelling Catheter Indwelling Catheter # Bowel Movements 2 - Labs CBC & Chem 7: 05/17/21 09:18 05/23/21 05:10 Labs: Abnormal Lab Results - Last 24 Hours (Table) 05/25/21 05/25/21 05/25/21 Range/Units 07:36 11:40 16:59 POC Glucose (mg/dL) 135 H 132 H 146 H (75-99) mg/dL 05/25/21 Range/Units 20:57 POC Glucose (mg/dL) 167 H (75-99) mg/dL
[2021-05-26 06:51] LABS: Glucose,Whole Blood 157 mg/dL (75-99)
[2021-05-26] MEDS: DICLOFENAC SODIUM GEL 100 GM TUBE TOPICAL SCH ×2 (08:00→12:31)
[2021-05-26] MEDS: TAMSULOSIN 0.4 MG CAP.ER.24H PO SCH (08:15)
[2021-05-26] MEDS: METOPROLOL TARTRATE 50 MG TAB PO SCH (08:15)
[2021-05-26] MEDS: DILTIAZEM ORAL 30 MG TAB PO SCH ×2 (08:15→12:31)
[2021-05-26] MEDS: MAGNESIUM OXIDE 400 MG TAB PO SCH ×2 (08:15→15:06)
[2021-05-26] MEDS: POTAS-SOD-PHOS 278-164-250 MG 1 EACH PACKET PO SCH ×2 (08:15→15:06)
[2021-05-26] MEDS: LOSARTAN 25 MG TAB PO SCH (08:15)
[2021-05-26] MEDS: PSYLLIUM HUSK 100% 6 GM PACKET PO SCH (08:16)
[2021-05-26] MEDS: guaiFENesin SYRUP 100MG/5ML 200 MG/10 ML CUP PO SCH ×2 (08:16→14:53)
[2021-05-26] MEDS: FAMOTIDINE 20 MG TAB PO SCH (08:16)
--- NOTE | 2021-05-26 08:55 | P.PN ---
Subjective Progress Note Date: 05/26/21 Principal diagnosis: Left knee pain, left knee osteoarthritis Patient evaluated today at bedside, is resting comfortably in his hospital bed. Patient states the knee is feeling a lot better after the injection yesterday. He has no other orthopedic complaints at this time. Objective - Vital Signs Vital signs: Vital Signs Temp 97.6 F 05/26/21 07:50 Pulse 89 05/26/21 07:50 Resp 18 05/26/21 07:50 BP 166/100 05/26/21 07:50 Pulse Ox 96 05/26/21 07:50 Intake & Output 05/25/21 05/26/21 05/26/21 18:59 06:59 18:59 Intake Total 296 Output Total 500 900 Balance -204 -900 Weight 148.5 kg Intake: Oral 296 Output: Urine 500 900 Other: Voiding Method Indwelling Catheter Indwelling Catheter # Bowel Movements 2 1 - Exam Left lower extremity: No redness surrounding the injection site, effusion is improving Exam of the remaining aspect of the skin, he has severe edema in the lower extremity with erythema and skin molting Obvious tenderness with palpation around the medial and lateral aspect of the knee joint. patient is nontender with palpation about the proximal extremity, also the lower extremity distal to the knee. Logroll maneuver of the hip joint reproduces no groin pain Passive and active motion of the left knee do reproduce some discomfort mainly with deep flexion Plantar flexion, dorsiflexion, EHL, FHL are intact - Labs CBC & Chem 7: 05/17/21 09:18 05/23/21 05:10 Labs: Abnormal Lab Results - Last 24 Hours (Table) 05/25/21 05/25/21 05/25/21 Range/Units 11:40 16:59 20:57 POC Glucose (mg/dL) 132 H 146 H 167 H (75-99) mg/dL 05/26/21 Range/Units 06:49 POC Glucose (mg/dL) 157 H (75-99) mg/dL Assessment and Plan Assessment: Left knee pain/effusion Left knee severe osteoarthritis Multiple medical comorbidities Plan: Plan: Patient has noticed improvement with the injection. Recommend continue to advance his activity as he can tolerate. Ice and elevation of the knee is beneficial. Patient follow-up on an as-needed basis in the outpatient setting. Orthopedic standpoint patient is stable for discharge Time with Patient: Less than 30
[2021-05-26 10:56] LABS: Glucose,Whole Blood 150 mg/dL (75-99)
--- NOTE | 2021-05-26 11:04 | P.PN ---
Subjective Progress Note Date: 05/26/21 CHIEF COMPLAINT: Abdominal pain HISTORY OF PRESENT ILLNESS: Patient with chronic pseudoobstruction of colon. Patient is tolerating ground diet. Denies any abdominal pain. He is having bowel movements and flatus. Afebrile Patient seen and examined with Dr. huddleston PHYSICAL EXAM: VITAL SIGNS: Reviewed. GENERAL: Well-developed in no acute distress. HEENT: No sclera icterus. Extraocular movements grossly intact. Moist buccal mucosa. Head is atraumatic, normocephalic. ABDOMEN: Decrease abdominal distention. Nontender NEUROLOGIC: Alert and oriented. Cranial nerves II through XII grossly intact. ASSESSMENT: 1. Chronic pseudoobstruction of colon 2. Hypomagnesemia improved 3. Hypokalemia improved 4. UTI PLAN: -Patient can be discharged from surgical standpoint when medically stable -Follow up in office in one week -No surgical intervention planned -Okay to resume Eliquis from surgical standpoint Physician [employer]ist note has been reviewed by physician. Signing provider agrees with the documented findings, assessment, and plan of care. Objective - Vital Signs Vital signs: Vital Signs Temp 97.6 F 05/26/21 07:50 Pulse 89 05/26/21 07:50 Resp 18 05/26/21 07:50 BP 166/100 05/26/21 07:50 Pulse Ox 96 05/26/21 07:50 Intake & Output 05/25/21 05/26/21 05/26/21 18:59 06:59 18:59 Intake Total 296 Output Total 500 900 Balance -204 -900 Weight 148.5 kg Intake: Oral 296 Output: Urine 500 900 Other: Voiding Method Indwelling Catheter Indwelling Catheter # Bowel Movements 2 1 - Labs CBC & Chem 7: 05/17/21 09:18 05/23/21 05:10 Labs: Abnormal Lab Results - Last 24 Hours (Table) 05/25/21 05/25/21 05/25/21 Range/Units 11:40 16:59 20:57 POC Glucose (mg/dL) 132 H 146 H 167 H (75-99) mg/dL 05/26/21 05/26/21 Range/Units 06:49 10:54 POC Glucose (mg/dL) 157 H 150 H (75-99) mg/dL
--- NOTE | 2021-05-26 13:58 | P.DS ---
Providers Date of admission: 05/12/21 13:19 Expected date of discharge: 05/26/21 Attending physician: Shaheed Pierce Consults: 05/12/21 13:23 Consult Physician Routine Consulting Provider: Reynaldo Escobedo Consult Reason/Comments: Ileus Do you want consulting provider notified?: Yes 05/24/21 10:33 Consult Physician Routine Consulting Provider: Karlos Perkins Consult Reason/Comments: left knee pain Do you want consulting provider notified?: Yes Primary care physician: [facility] Course: Chief Complaint: Abdominal distention History of presenting complaint: This is a 76-year-old patient, who follows with Dr. Barry. Chronic stable medical conditions include atrial fibrillation, CHF, diabetes, GERD, hypertension, pacemaker, depression. Patient normally is a full assist. Patient was recently in the hospital from April 28 through May 04. Patient had. [facility] for left knee pain and was given laxatives and subsequently patient related to ileus. We had put the patient on her NG tube. He was doing well by the time he left. Patient's found to have a atrophic left kidney, mass appears to be attached by a very pleasant between the kidney and the spleen. We'll follow up with urology. Did undergo colonoscopy by Dr. Escobedo. Also seen by Dr. Nesbitt [place] left knee. Patient was discharged to [facility] rehab at [facility]. Patient now presents stating that since he left. Abdomen was started to be distended again. In got worse. Appetite is poor. Patient been having some liquid bowel movements. Including today. And yesterday. Moderate amount. Patient remains a full assist. No fever no chills. No nausea vomiting. No abdominal pain except for significant distention. Admitted with severe small large bowel ileus/ogilvies. Acute UTI.Urine culture positive for Proteus mirabilis/ESBL. IV Unasyn. Patient failed conservative measures for [place] syndrome. On May 16 patient was given NG tube, rectal tissue and I started the patient on neostigmine drip. Following day patient had a very large bowel movement followed by smaller stools. Abdomen became very soft. Patient received TPN and lipids. Patient responded well. Having bowel movements. Abdomen nondistended. Tolerating diet. Also seen by Dr. Nesbitt /orthopedics left knee pain. He received a cortisone injection. Patient told not to use narcotics. As this will precipitate his ileus. He may use ice pack. Voltaren gel. May 26: Care was discussed at length with the patient. Including avoiding narcotics. Use Voltaren gel and ice pack for the knee. Questions answered. Discussed with the [employer] social and political studies professor. Discussion and discharge planning more than 35 minutes Past medical history to include: Atrial fibrillation, CHF, diabetes, GERD, hypertension, pacemaker, depression. Atrophic left kidney. Mass outside the left kidney being followed by urology. Colonic diverticulosis. Social history: Currently at [facility] reh [facility] Has full-time support. Patient is a full assist to a wheelchair. Can pivot. With help Family history: Father of a heart attack age 58 Physical examination: VITAL SIGNS: 97.6, 89, 18, 163/92, 96% room air GENERAL: Reclining in bed, awake, EYES: Pupils equal. Conjunctiva normal. HEENT: External appearance of nose and ears normal, oral cavity grossly normal. NECK: JVD not raised; masses not palpable. HEART: First and second heart sounds are normal; no edema. LUNGS: Respiratory rate normal; clear to auscultation. ABDOMEN: Soft, not distended nontender, liver spleen not palpable, no masses palpable. PSYCH: Alert and oriented x3; mood and affect normal. MUSCULOSKELETAL:No Clubbing/cyanosis;muscles-grossly intact. Evidence of OA INVESTIGATIONS, reviewed in the clinical context: May 23: Potassium 3.7 creatinine 0.88 Urine culture positive for: Proteus mirabilis/ESBL White count 8.8 hemoglobin 13.2 platelets 252 potassium 3.6 BUN 9 creatinine 1.13 UA positive for leukoesterase WBC Computed tomography scan of the abdomen: Progressive dilatation of the colon up to 11.64 cm with some transition point at the splenic flexure. Small bowel loops also dilated. Sigmoid diverticulosis. Atrophic left kidney. With numerous calculi. Spinal changes. Coronavirus PCR: Not detected EKG tracing personally reviewed by me-atrial flutter fibrillation with a rate of 99 Abdominal x-ray film personally reviewed by me: Greatly distended loops of bowel From previous admission Computed tomography scan of the abdomen pelvis: Overall nonspecific pattern favoring nonobstructive bowel gas pattern. Abrupt transition change mid sigmoid colon without obvious mass. Chronic changes to the left kidney. Small calculi along the course of left ureter. Nondilated. 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 Assessment and plan: -Severe large and small bowel/severe ileus. Recent admission patient had ileus and had responded to laxatives. Incomplete colonoscopy showed diverticulosis.: Improved responded well to Neostigmine drip. large BM and same following that. Metamucil. 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 Russell -Left atrophic kidney -Primary osteoarthritis multiple joints bilateral Left knee cortisone injection by Dr. Nesbitt -Persistent atrial fibrillation, rate controlled Lopressor 100 mg twice a day. Eliquis. Telemetry. Cardizem ER 100 mg a day -BPH Flomax 0.4 mg a day -Essential hypertension Cozaar, Cardizem extended release, Lopressor -Severe Hypokalemia from diarrhea: Corrected Replace potassium -GERD Omeprazole 20 mg twice a day -Colonic diverticulosis, asymptomatic -Chronic medical debility rehab -Acute UTI with cystitis, from Proteus mirabilis/ESBL. IV Unasyn: Completed course - Patient Condition at Discharge: Fair Plan - Discharge Summary New Discharge Prescriptions: New Famotidine [Pepcid] 20 mg PO BID tab Naproxen 250 mg PO Q12H PRN #1 tablet PRN Reason: Pain Psyllium Husk 100% [Metamucil Packet] 6 gm PO BID packet Diclofenac Sodium Gel [Voltaren Gel] 4 gm TOPICAL QID gm Continue Ergocalciferol (Vitamin D2) [Drisdol (50,000 Iu)] 1,250 mcg PO SA Atorvastatin Calcium [Lipitor] 20 mg PO HS Pyridoxine [Vitamin B-6] 50 mg PO DAILY Calcium Carbonate/Vitamin D3 [Calcium 500 mg-Vit D3 5 mcg (200 Unit)] 1 tab PO BID Diltiazem HCl [Cardizem LA] 120 mg PO DAILY Vitamin B Complex 1 cap PO DAILY Zinc Oxide [Desitin] 1 applic TOPICAL Q12H Tamsulosin HCl [Flomax] 0.4 mg PO DAILY Metoprolol Tartrate [Lopressor] 100 mg PO BID Apixaban [Eliquis] 5 mg PO BID Omeprazole 20 mg PO DAILY Multivitamins, Thera [Multivitamin (formulary)] 1 tab PO DAILY Alogliptin Benzoate [Alogliptin] 12.5 mg PO DAILY [employer]ph[employer] Wound Dress 1 applic TOPICAL Q12H Changed Losartan Potassium [Cozaar] 25 mg PO BID #0 Discontinued Prostat 30 ml PO DAILY HYDROcodone/APAP 10-325MG [Hurley 10-325] 1 tab PO Q6H PRN PRN Reason: Pain Wheat Dextrin [Benefiber] 1 tbsp PO BID Torsemide [Demadex] 20 mg PO DAILY Discharge Medication List Alogliptin Benzoate [Alogliptin] 12.5 mg PO DAILY 04/27/21 [History] Apixaban [Eliquis] 5 mg PO BID 04/27/21 [History] Atorvastatin Calcium [Lipitor] 20 mg PO HS 04/27/21 [History] Calcium Carbonate/Vitamin D3 [Calcium 500 mg-Vit D3 5 mcg (200 Unit)] 1 tab PO BID 04/27/21 [History] Ergocalciferol (Vitamin D2) [Drisdol (50,000 Iu)] 1,250 mcg PO SA 04/27/21 [History] Metoprolol Tartrate [Lopressor] 100 mg PO BID 04/27/21 [History] Multivitamins, Thera [Multivitamin (formulary)] 1 tab PO DAILY 04/27/21 [History] Omeprazole 20 mg PO DAILY 04/27/21 [History] Pyridoxine [Vitamin B-6] 50 mg PO DAILY 04/27/21 [History] Tamsulosin HCl [Flomax] 0.4 mg PO DAILY 04/27/21 [History] Diltiazem HCl [Cardizem LA] 120 mg PO DAILY 05/12/21 [History] Triad Hydrophillic Wound Dress 1 applic TOPICAL Q12H 05/12/21 [History] Vitamin B Complex 1 cap PO DAILY 05/12/21 [History] Zinc Oxide [Desitin] 1 applic TOPICAL Q12H 05/12/21 [History] Diclofenac Sodium Gel [Voltaren Gel] 4 gm TOPICAL QID gm 05/26/21 [Rx] Famotidine [Pepcid] 20 mg PO BID tab 05/26/21 [Rx] Losartan Potassium [Cozaar] 25 mg PO BID #0 05/26/21 [Rx] Naproxen 250 mg PO Q12H PRN #1 tablet 05/26/21 [Rx] Psyllium Husk 100% [Metamucil Packet] 6 gm PO BID packet 05/26/21 [Rx] Follow up Appointment(s)/Referral(s): Bud Barry MD [Primary Care Provider] - 1-2 days Karlos Perkins DO [Doctor of Osteopathic Medicine] - As Needed Reynaldo Escobedo MD [STAFF PHYSICIAN] - 1 Week Patient Instructions/Handouts: Peripherally Inserted Central Catheters and Midline Catheters in... (DC)
[2021-05-26 15:08] VITALS: BP 151/84; PULSE 76; RESP 17; TEMP 97.8
== END 2021-05-26 16:47 | disposition home or self-care (01) | DRG 389 ==
LOC: EC 08:59 → 4SSUR 13:19
PROVIDERS: ADMIT Hospitalist; ATTEND Hospitalist
PROC: 05HF33Z Insertion of Infusion Device into Left Cephalic Vein, Percutaneous Approach (ICD-10-PCS; 2021-05-17)
PROC: B5181ZA Fluoroscopy of Superior Vena Cava using Low Osmolar Contrast, Guidance (ICD-10-PCS; 2021-05-18)
PROC: B548ZZA Ultrasonography of Superior Vena Cava, Guidance (ICD-10-PCS; 2021-05-18)
PROC: 3E0336Z Introduction of Nutritional Substance into Peripheral Vein, Percutaneous Approach (ICD-10-PCS; 2021-05-18)
PROC: 02HV33Z Insertion of Infusion Device into Superior Vena Cava, Percutaneous Approach (ICD-10-PCS; principal; 2021-05-18 12:05)
PROC: 3E0U33Z Introduction of Anti-inflammatory into Joints, Percutaneous Approach (ICD-10-PCS; 2021-05-25)
PROC: 3E0U3BZ Introduction of Anesthetic Agent into Joints, Percutaneous Approach (ICD-10-PCS; 2021-05-25)
PROC: 0S9D3ZX Drainage of Left Knee Joint, Percutaneous Approach, Diagnostic (ICD-10-PCS; 2021-05-25)
DX: K56.7 Ileus, unspecified (principal); I48.19 Other persistent atrial fibrillation; Z68.41 Body mass index [BMI] 40.0-44.9, adult; Z16.12 Extended spectrum beta lactamase (ESBL) resistance; N30.90 Cystitis, unspecified without hematuria; Z20.822 Contact with and (suspected) exposure to COVID-19; I11.0 Hypertensive heart disease with heart failure; E11.9 Type 2 diabetes mellitus without complications; E86.0 Dehydration; E66.01 Morbid (severe) obesity due to excess calories; K59.81 Ogilvie syndrome; K57.30 Diverticulosis of large intestine without perforation or abscess without bleeding; N40.0 Benign prostatic hyperplasia without lower urinary tract symptoms; N26.1 Atrophy of kidney (terminal); M17.12 Unilateral primary osteoarthritis, left knee; K21.9 Gastro-esophageal reflux disease without esophagitis; E83.42 Hypomagnesemia; E87.6 Hypokalemia; F32.A Depression, unspecified; F41.9 Anxiety disorder, unspecified; I50.9 Heart failure, unspecified; K64.9 Unspecified hemorrhoids; Z79.01 Long term (current) use of anticoagulants; Z79.2 Long term (current) use of antibiotics; Z79.899 Other long term (current) drug therapy; Z82.49 Family history of ischemic heart disease and other diseases of the circulatory system; Z87.891 Personal history of nicotine dependence; Z95.0 Presence of cardiac pacemaker; B96.4 Proteus (mirabilis) (morganii) as the cause of diseases classified elsewhere; Z88.8 Allergy status to other drugs, medicaments and biological substances; Z91.040 Latex allergy status; Z90.49 Acquired absence of other specified parts of digestive tract; Z86.14 Personal history of Methicillin resistant Staphylococcus aureus infection
CPT/HCPCS: 36410; 36415; 36573; 71045; 74018; 74019; 74021; 74177; 76937; 80048; 80053; 81001; 82040; 82150; 82330; 83605; 83690; 83735; 84100; 84132; 84478; 84484; 85025; 85610; 85730; 87040; 87077; 87086; 87186; 87635; 93005; 96360; 96361; 99285